=== PATIENT | female | born 1970 | race Caucasian/White ===

== ENCOUNTER 2024-07-26 12:32 | Inpatient (IN) ==
--- NOTE | 2024-07-26 13:03 | Emergency Department Note ---
Impression & Plan Acute cholecystitis, Leukocytosis, Right upper quadrant abdominal pain, Nausea & vomiting, Hyperglycemia, Cholelithiasis, Elevated serum creatinine ED Provider Note CHIEF COMPLAINT: Right upper quadrant pain, referral from [facility] HISTORY OF PRESENTING ILLNESS: The patient is a 54-year-old female with a H gallstones and type 2 diabetes who presents to the emergency department due to worsening RUQ abdominal pain for 6 days. Confirms that she was evaluated at [facility] where an ultrasound showed gallstones/inflamed gallbladder but surgery did not feel as if she required removal at that time. She was sent home for outpatient management and when she was reevaluated today was sent here. Denies fevers, chest pain, shortness of breath, diarrhea, or urinary symptoms. She does confirm that she is feeling nauseous and had episodes of vomiting previously in the week but has not had any since. Confirms being on Plavix. She had last eaten this morning at 10 AM. REVIEW OF SYSTEMS: See HPI for pertinent positives and pertinent negatives. ALLERGIES: NKDA MEDICATIONS: See below PAST MEDICAL HISTORY: Gallstones, type 2 diabetes PHYSICAL EXAM: VITALS: Vitals are noted on the nurse's note and reviewed by myself. Vital signs stable. GENERAL: 54-year-old female, lying comfortably in bed, in no acute distress, nondiaphoretic, well-developed well-nourished. SKIN: Capillary refill less than 2 seconds. HEENT: Normocephalic. PERRLA. EOMI. Nares patent. Mucous membranes moist. Neck is supple without nuchal rigidity. HEART: Regular rate and rhythm without murmurs gallops or rubs. LUNGS: Clear to auscultation bilaterally without wheezes, rales or rhonchi. No retractions or accessory muscle use. ABDOMEN: Positive bowel sounds x 4. Exquisite tenderness upon RUQ palpation. Whitfield sign positive. No other tenderness upon palpation to the abdomen. Soft, without masses. NEURO: Patient was alert and oriented. No focal neurological deficits. DIFFERENTIAL DIAGNOSIS: appendicitis, diverticulitis, bowel obstruction, inflammatory bowel disease, renal colic, PUD, biliary pathology, acute cholecystitis, cholelithiasis, pancreatitis, mesenteric ischemia, aortic pathology, infection, genitourinary, UTI, perforated viscus, among others. ED COURSE AND MEDICAL DECISION MAKING: HISTORY FROM INDEPENDENT HISTORIAN: The patient herself and her mother. MEDICATIONS GIVEN: Denies any for pain management, 1 L normal saline, Rocephin 2 g IV, Flagyl 500 mg IV MONITOR: Continuous cardiac rn: Order was placed for continuous cardiac rn. Patient was placed on the cardiac rn and continuous pulse ox. Patient was noted to be in normal sinus rhythm at an initial rate of 72 bpm per my interpretation. EKG: EKG was interpreted by myself as normal sinus rhythm. No obvious arrhythmia. No ST or T wave abnormality. No previous EKG for comparison. INTERPRETATION OF LABS: I interpreted the labs with full lab results as below in the lab section of this note. Pertinent lab results discussed in the MDM section below. INTERPRETATION OF IMAGING: Imaging studies were interpreted by myself and read by radiology as per the imaging section of this note. Ultrasound gallbladder - Cholelithiasis with positive sonographic Whitfield sign, mild gallbladder wall thickening and trace pericholecystic fluid. Favoring acute cholecystitis. No biliary ductal dilation. CONSULTATIONS: - On-call general surgery provider - I presented the patient to the general surgery team, her presentation, laboratory results, and imaging study showing acute cholecystitis. I did inform them that she has not had any fevers and her LFTs are within normal limits. No biliary ductal dilation. Was instructed to keep the patient NPO, administer fluids, and start IV antibiotics while working on admitting her to medicine. Patient's creatinine is elevated as well as her blood sugar. Requested correction of these levels before surgical procedure likely Tuesday due to the patient being on Plavix. - On-call [facility] hospitalist provider - I presented the patient to the hospitalist, her presentation, laboratory results, and imaging study showing acute cholecystitis. They were also informed of the consultation that I had with general surgery and their plans for cholecystectomy tomorrow. Discussed the patient and informed them that she has been started on fluids and IV antibiotics. They confirmed that they would come and evaluate the patient and admit her. The remainder of her care will be taken over by the hospitalist team. MDM SUMMARY: The patient is a 54-year-old female presents the emergency department due to worsening RUQ abdominal pain and nausea. Denies fevers, chest pain, shortness of breath, diarrhea, or urinary symptoms. She does confirm that she is feeling nauseous and had episodes of vomiting previously in the week but has not had any since. Confirms being on Plavix. She had last eaten this morning at 10 AM. On exam the patient is lying comfortably in bed, her vitals are stable, she is afebrile. Chest auscultation reveals RRR without murmurs. The lungs are clear to auscultation bilaterally. Positive bowel sounds appreciated in all 4 quadrants. Exquisite tenderness upon palpation to right upper quadrant. Whitfield sign positive. No other abdominal quadrant tenderness. Labs and a gallbladder ultrasound were ordered. Patient denies need for pain and symptom management. 1 L normal saline provided. Leukocytosis WBC 12.43. RBC 4.08. Hemoglobin hematocrit 12.2/36.7. No electrolyte abnormalities. BUN 20. Creatinine elevated 1.52. She does confirm history of kidney disease and elevated creatinine at baseline. Hyperglycemia glucose 236. AST 12. ALT 8. Troponin normal 6.5. Lipase 35 normal. negative. Urinalysis shows trace protein, 2+ leukocyte Estrace, and urine epithelial cells. Urinalysis was provided upon admission of the patient to medicine. Ultrasound gallbladder shows acute cholecystitis. No biliary ductal dilation. A consultation was placed with the on-call general surgery provider which can be seen in detail above. They recommended admission to medicine due to patient being on Plavix, hyperglycemic, and elevated creatinine. Patient was admitted to medicine which can be seen in detail above. I informed them that I had given her a liter of normal saline and started her on antibiotics ceftriaxone and Flagyl. They confirmed that they would evaluate the patient and admit her. I informed the patient of all of her laboratory and imaging results as well as my consultations with surgery and hospitalist. She agrees to the outlined treatment plan and all of her questions were answered. The remainder of her care was taken over by their team. The patient was admitted in stable condition. DIAGNOSIS: Acute cholecystitis, leukocytosis, right upper quadrant abdominal pain, nausea and vomiting, hyperglycemia, cholelithiasis, elevated serum creatinine The chart was completed utilizing [employer] voice recognition software. Grammatical errors, random word insertions, pronoun errors, and incomplete sentences are an occasional consequence of this system due to software limitations, ambient noise, and hardware issues. Any formal questions or concerns about the content, text, or information contained within the body of this dictation should be directly addressed to the provider for clarification. Past Med/Surg History Problem List (Updated 07/26/24 @ 20:39 by Rica Cortes PA-C) Abnormal urinalysis IKE (acute kidney injury) History of CVA (cerebrovascular accident) Acute calculous cholecystitis Elevated serum creatinine (Acute) Cholelithiasis (Acute) Hyperglycemia (Acute) Nausea & vomiting (Acute) Right upper quadrant abdominal pain (Acute) Leukocytosis (Acute) Acute cholecystitis (Acute) Medical History Morbid obesity Diabetes type 2 Stroke Hyperlipidemia HTN (hypertension) Surgical History Tubal ligation evaluation Social History Smoking Status: Never smoker Feels Safe at Home: Yes Allergies Allergies Allergy/AdvReac Type Severity Reaction Status Date / Time No Known Allergies Allergy Unverified 07/26/24 15:55 Home Meds Home Medications Medication Instructions Recorded Confirmed atorvastatin 80 mg tablet 40 mg PO QAM 07/26/24 07/26/24 citalopram 40 mg tablet 40 mg PO QAM 07/26/24 07/26/24 clopidogrel 75 mg tablet 75 mg PO QA 07/26/24 07/26/24 hydroxyzine HCl 10 mg tablet 10 mg PO DAILY PRN Anxiety 07/26/24 07/26/24 lisinopril 10 mg tablet 10 mg PO QAM 07/26/24 07/26/24 metformin 500 mg tablet 500 mg PO QAM 07/26/24 07/26/24 Results & Data (ED) Vital Signs Vital Signs - 24 hr 07/26/24 12:43 07/26/24 13:20 07/26/24 13:21 Temperature 36.6 C Temperature Source Temporal Artery Scan Pulse Rate 85 72 Pulse Rate [Apical] 72 Respiratory Rate 18 18 Respiratory Effort / Characteristics Non-Labored Spontaneous Non-Labored Spontaneous Respiratory Depth Normal Normal Respiratory Pattern Regular Blood Pressure 132/86 Blood Pressure [Right Arm] 119/73 Blood Pressure Mean 101 Blood Pressure Mean [Right Arm] 88 Pulse Oximetry 95 98 Oxygen Delivery Method Room Air Room Air Sepsis Recent Fever Within 48 Hours No Sepsis New/Unexplained Change in Mental Status N/A Sepsis Action Taken by Nursing No Action Required 07/26/24 15:00 07/26/24 17:00 07/26/24 17:18 Temperature Temperature Source Pulse Rate 65 Pulse Rate [Apical] 85 67 Respiratory Rate 20 14 Respiratory Effort / Characteristics Non-Labored Respiratory Depth Normal Normal Respiratory Pattern Blood Pressure Blood Pressure [Right Arm] 137/69 Blood Pressure Mean Blood Pressure Mean [Right Arm] 91 Pulse Oximetry 95 98 Oxygen Delivery Method Room Air Room Air Sepsis Recent Fever Within 48 Hours Sepsis New/Unexplained Change in Mental Status Sepsis Action Taken by Nursing Laboratory Data 07/26/24 13:16 07/26/24 13:16 Lab Results 07/26/24 Range/Units 13:16 WBC 12.43 H (4.8-10.8) K/ul RBC 4.08 L (4.20-5.40) M/uL Hgb 12.2 (12.0-16.0) g/dl Hct 36.7 L (37.0-47.0) % MCV 90.0 (80.0-100.0) fL MCH 29.9 (25.0-34.0) pg MCHC 33.2 (32.0-36.0) g/dL RDW Std Deviation 43.2 (36.4-46.3) fL RDW Coeff of Georges 13.0 (11.5-14.5) % Plt Count 355 (130-400) K/uL MPV 9.1 L (9.4-12.4) fL Immature Gran % (Auto) 0.6 % Neut % (Auto) 70.8 % Lymph % (Auto) 17.6 % Armstrong % (Auto) 7.9 % Eos % (Auto) 2.7 % Baso % (Auto) 0.4 % Neut # (Auto) 8.79 H (1.40-6.50) K/uL Lymph # (Auto) 2.19 (1.20-3.40) K/uL Armstrong # (Auto) 0.98 H (0.11-0.59) K/uL Eos # (Auto) 0.34 (0.00-0.50) K/uL Baso # (Auto) 0.05 (0.00-0.20) K/uL Immature Gran # (Auto) 0.08 (0.01-0.20) K/uL Sodium 138 (136-145) mmol/L Potassium 4.5 (3.5-5.1) mmol/L Chloride 103 (98-107) mmol/L Carbon Dioxide 24 (21-32) mmol/L Anion Gap 11 (3-11) BUN 20 (6-23) mg/dl Creatinine 1.52 H (0.6-1.2) mg/dl Est Cr Clr Drug Dosing 46.8 ml/min eGFR 40.25 BUN/Creatinine Ratio 13.2 (10-20) Glucose 236 H (70-99(Fasting)) mg/dl Calcium 9.2 (8.6-10.3) mg/dl Total Bilirubin 0.6 (0.2-1.0) mg/dl AST 12 L (13-39) U/L ALT 8 (7-52) U/L Alkaline Phosphatase 78 (34-104) U/L Troponin I High Sens 6.5 (0-14) pg/ml Total Protein 7.4 (6.0-8.3) gm/dl Albumin 3.7 (3.4-5.0) gm/dl Globulin 3.7 (2.5-4.0) gm/dl Albumin/Globulin Ratio 1.0 (0.9-2) Lipase 35 (11-82) U/L HCG, Qual Negative (Negative) Administered Medications Lactated Ringer's (Lr) 1,000 mls @ 100 mls/hr IV .Q10H ABDIAS Stop: 07/27/24 21:14 Last Admin: 07/26/24 20:25 Dose: 100 mls/hr Documented By: MOSES Acetaminophen (Ofirmev) 1,000 mg in 100 mls @ 400 mls/hr IV Q8H ABDIAS Stop: 07/29/24 18:59 Last Infusion: 07/26/24 21:29 Dose: Infused Documented By: Admin: 07/26/24 21:13 Dose: 400 mls/hr Documented By: MOSES Insulin Aspart (Insulin Aspart Per Unit Charge) 0 units SC ACHS ABDIAS Stop: 08/25/24 20:59 Last Admin: 07/26/24 21:27 Dose: Not Given Documented By: MNS Discontinued Medications Sodium Chloride (Nss) 1,000 mls @ 999 mls/hr IV .Q1H1M ONE Stop: 07/26/24 16:55 Last Infusion: 07/26/24 18:17 Dose: Infused Documented By: Admin: 07/26/24 16:04 Dose: 999 mls/hr Documented By: MOSES Ceftriaxone Sodium (Rocephin) 2,000 mg in 50 mls @ 100 mls/hr IV Q24H ABDIAS Stop: 07/28/24 15:59 Last Infusion: 07/26/24 18:20 Dose: Infused Documented By: Admin: 07/26/24 17:47 Dose: 100 mls/hr Documented By: MOSES Metronidazole (Flagyl) 500 mg in 100 mls @ 100 mls/hr IV NOW STA; Protocol Stop: 07/26/24 16:54 Last Infusion: 07/26/24 18:17 Dose: Infused Documented By: Admin: 07/26/24 16:04 Dose: 100 mls/hr Documented By: MOSES Imaging Data Radiologist's Impression: Gallbladder Ultrasound 07/26/24 12:56 US gallbladder CLINICAL HISTORY: Abdominal pain. COMPARISON STUDY: No previous studies for comparison. FINDINGS: A 3 cm gallstone within the gallbladder neck is noted. The gallbladder is mildly distended. Sonographic Whitfield sign was reported by the technologist. There is mild gallbladder wall thickening and trace pericholecystic fluid. There is no biliary ductal dilatation. No hepatic lesions are identified. Liver morphology is normal. Pancreatic body is normal. Head and tail are obscured. A 1.1 cm hypoechoic nodule adjacent to the pancreatic head favors a benign lymph node. There is no right hydronephrosis. IMPRESSION: 1. Cholelithiasis with positive sonographic Whitfield sign, mild gallbladder wall thickening and trace pericholecystic fluid. The findings favor acute cholecystitis. A nuclear medicine hepatobiliary scan could be obtained as indicated. 2. No biliary ductal dilatation. ACT 112: Negative or not required by law. Electronically signed by: Jeffrey Robles M.D. 07/26/2024 3:00 PM Discharge Plan Visit Data Chief Complaint: Referred by Doctor Stated Complaint: SENT FROM [facility] ED Provider: Mike Blancas ED Midlevel Provider: Evonne Galindo Discharge Problem: Acute cholecystitis, Leukocytosis, Right upper quadrant abdominal pain, Nausea & vomiting, Hyperglycemia, Cholelithiasis, Elevated serum creatinine Patient Disposition: Admitted As Inpatient Condition: Good Discharge Instructions Interventions: ED Discharge Assessment Last Done: 07/26/24 21:36 Discharge Problem: Leukocytosis Qualifiers: Leukocytosis type: unspecified Qualified Code(s): D72.829 - Elevated white blood cell count, unspecified Nausea & vomiting Qualifiers: Vomiting type: unspecified Qualified Code(s): R11.2 - Nausea with vomiting, unspecified Cholelithiasis Qualifiers: Cholelithiasis location: gallbladder Cholecystitis presence: with cholecystitis Cholecystitis acuity: acute Biliary obstruction: without biliary obstruction Q ualified Code(s): K80.00 - Calculus of gallbladder with acute cholecystitis without obstruction
[2024-07-26 13:56] LABS: Basophils # (auto) 0.05 K/uL (0.00-0.20); Basophils % (auto) 0.4 %; Eosinophils # (auto) 0.34 K/uL (0.00-0.50); Eosinophils % (auto) 2.7 %; Hematocrit (blood only) 36.7 % (37.0-47.0); Hemoglobin 12.2 g/dl (12.0-16.0); Immature Granulocytes # (auto) 0.08 K/uL (0.01-0.20); Immature Granulocytes % (auto) 0.6 %; Lymphocytes # (auto) 2.19 K/uL (1.20-3.40); Lymphocytes % (auto) 17.6 %; Mean Corpuscular Hemoglobin 29.9 pg (25.0-34.0); Mean Corpuscular Hgb Conc 33.2 g/dL (32.0-36.0); Mean Platelet Volume 9.1 fL (9.4-12.4); Monocytes # (auto) 0.98 K/uL (0.11-0.59); Monocytes % (auto) 7.9 %; Neutrophils # (auto) 8.79 K/uL (1.40-6.50); Neutrophils % (auto) 70.8 %; Platelet Count 355 K/uL (130-400); RDW Standard Deviation 43.2 fL (36.4-46.3); Red Blood Count 4.08 M/uL (4.20-5.40); White Blood Count 12.43 K/ul (4.8-10.8)
[2024-07-26 14:09] LABS: Pregnancy Test, Serum Negative (Negative)
[2024-07-26 14:13] LABS: Albumin Level 3.7 gm/dl (3.4-5.0); BUN Creatinine Ratio 13.2 (10-20); Bilirubin,Total 0.6 mg/dl (0.2-1.0); Calcium 9.2 mg/dl (8.6-10.3); Creatinine Clr Calc Pharmacy 46.8 ml/min; Globulin 3.7 gm/dl (2.5-4.0); Potassium 4.5 mmol/L (3.5-5.1); Total Protein 7.4 gm/dl (6.0-8.3)
[2024-07-26 14:18] LABS: Troponin I High Sensitivity 6.5 pg/ml (0-14)
--- NOTE | 2024-07-26 15:02 | Ultrasound Report ---
US gallbladder CLINICAL HISTORY: Abdominal pain. COMPARISON STUDY: No previous studies for comparison. FINDINGS: A 3 cm gallstone within the gallbladder neck is noted. The gallbladder is mildly distended. Sonographic Whitfield sign was reported by the technologist. There is mild gallbladder wall thickening and trace pericholecystic fluid. There is no biliary ductal dilatation. No hepatic lesions are identi fied. Liver morphology is normal. Pancreatic body is normal. Head and tail are obscured. A 1.1 cm hyp oechoic nodule adjacent to the pancreatic head favors a benign lymph node. There is no right hydronep hrosis. IMPRESSION: 1. Cholelithiasis with positive sonographic Whitfield sign, mild gallbladder wall thickening and trace p ericholecystic fluid. The findings favor acute cholecystitis. A nuclear medicine hepatobiliary scan c ould be obtained as indicated. 2. No biliary ductal dilatation. ACT 112: Negative or not required by law. Electronically signed by: Jeffrey Robles M.D. 07/26/2024 3:00 PM
[2024-07-26] MEDS: metroNIDAZOLE 500 MG/100 ML BAG IV STA (16:04)
[2024-07-26] MEDS: SODIUM CHLORIDE 0.9% 1,000 ML IV ONE (16:04)
--- NOTE | 2024-07-26 17:33 | Surgery Consultation ---
Date of Consultation July 26, 2024 Assessment & Plan (1) Acute calculous cholecystitis: (2) Right upper quadrant abdominal pain: (3) Leukocytosis: 54-year-old female with sudden onset of vomiting and right upper quadrant abdominal pain on Tuesday presented to [facility] emergency department in [place] and was subsequently discharged. She was seen in [facility] outpatient surgery clinic today by Dr. Seo and was referred to the emergency room given severe right upper quadrant pain on examination. Ultrasound here showing acute cholecystitis with large 3 cm stone in the neck of the gallbladder. No evidence of biliary obstruction. Leukocytosis of 12,000. T. bili and LFTs are unremarkable. She is very tender in the right upper quadrant on mild palpation with voluntary guarding in the right upper quadrant and positive Whitfield sign. No peritonitis. She is on Plavix for history of stroke and last took Plavix this morning. discussed with patient and family at bedside that unfortunately given her Plavix surgery will need to be delayed for at least a few days to decrease risk of bleeding intraoperatively. Given patient's pain on examination I do think she needs to be admitted to the hospital started on IV antibiotics, pain management as needed, antiemetics as needed along with blood sugar control and IV hydration. She can likely have some clear liquids. Hold Plavix. Will tentatively add her on for the operating room room on Tuesday for laparoscopic cholecystectomy with Dr. Delgado. Discussed with Dr. Delgado who agrees with above History of Present Illness Reason for Consultation: Acute calculous cholecystitis Requesting Physician: Evonne Galindo PA-C History of Present Illness Ms. Scott is a 54 yo female With history of type 2 diabetes, hypertension, hyperlipidemia, history of stroke on Plavix who was referred to the emergency room department by Dr. Seo after outpatient surgery evaluation today for cholelithiasis and right upper quadrant pain. She states that she had sudden onset of vomiting and right upper quadrant abdominal pain on Tuesday in which she went to [facility] ER and they discharged her home. She states she was not given any oral antibiotics. She states the pain has not been very severe since Tuesday but appetite has been low and not eating very well. She states she is afraid to eat due to causing any increase in her pain. She states when she is resting she is not having much pain about a 1 out of 10 but when pressed on pain is severe 8 out of 10. Denies of any fevers, chills, persistent vomiting since Tuesday, chest pain, shortness of breath, difficulty breathing, difficulty urinating or blood in the urine, blood in the stools. She has history of tubal ligation. She is on Plavix for history of stroke and took Plavix this morning. Allergies Allergy/AdvReac Type Severity Reaction Status Date / Time No Known Allergies Allergy Unverified 07/26/24 15:55 Home Medications Medication Instructions Recorded Confirmed Type atorvastatin 80 mg tablet 40 mg PO QAM 07/26/24 07/26/24 History citalopram 40 mg tablet 40 mg PO QAM 07/26/24 07/26/24 History clopidogrel 75 mg tablet 75 mg PO QAM 07/26/24 07/26/24 History hydroxyzine HCl 10 mg tablet 10 mg PO DAILY PRN Anxiety 07/26/24 07/26/24 History lisinopril 10 mg tablet 10 mg PO QAM 07/26/24 07/26/24 History metformin 500 mg tablet 500 mg PO QAM 07/26/24 07/26/24 History amoxicillin 875 mg-potassium 1 tab PO BID #7 tabs 07/31/24 Rx clavulanate 125 mg tablet docusate sodium 100 mg capsule 100 mg PO DAILY 2 weeks #14 caps 07/31/24 Rx (Colace) oxycodone 5 mg tablet 5 mg PO Q6H PRN pain #12 tabs 07/31/24 Rx Patient History Medical History Morbid obesity Diabetes type 2 Stroke Hyperlipidemia HTN (hypertension) Surgical History Tubal ligation evaluation Social History Smoking Status: Never smoker Hx Alcohol Use: No Hx Substance Use: No Preferred Language: Vietnamese Communication Ability: Effective Hand Ii Thermal Cutter Required: No Beliefs That Will Affect Care: None Current Living Situation: Spouse Feels Safe at Home: Yes Assistive Devices: None Review of Systems Review of Systems: All systems reviewed & are unremarkable except as noted in HPI & below Physical Exam Constitutional: WD/WN, vitals as above + morbidly obese, cooperative and comfortable; no acute distress and not ill appearing Respiratory: normal respiratory effort, lungs clear to auscultation Cardiovascular: RRR, no murmur, no edema Gastrointestinal (Abdomen): Inspection/Auscultation: abdomen normal to inspection; abdomen not distended Percussion/Palpation: + abdomen tender (RUQ), + guarding (RUQ, + Whitfield's sign) and abdomen soft; abdomen not rigid and abdomen not firm Skin: no rashes, warm and dry Psychiatric: A+Ox3, euthymic affect Results & Data Vital Signs (Past 12 Hours) Vital Signs Temp Pulse Pulse Resp BP BP Pulse Ox 07/26/24 17:18 65 07/26/24 15:00 85 20 95 07/26/24 13:21 72 07/26/24 13:20 72 18 119/73 98 07/26/24 12:43 36.6 C 85 18 132/86 95 O2 Del Method 07/26/24 17:18 07/26/24 15:00 Room Air 07/26/24 13:21 07/26/24 13:20 Room Air 07/26/24 12:43 Room Air Laboratory Results 07/26/24 Range/Units 13:16 WBC 12.43 H (4.8-10.8) K/ul RBC 4.08 L (4.20-5.40) M/uL Hgb 12.2 (12.0-16.0) g/dl Hct 36.7 L (37.0-47.0) % MCV 90.0 (80.0-100.0) fL MCH 29.9 (25.0-34.0) pg MCHC 33.2 (32.0-36.0) g/dL RDW Std Deviation 43.2 (36.4-46.3) fL RDW Coeff of Georges 13.0 (11.5-14.5) % Plt Count 355 (130-400) K/uL MPV 9.1 L (9.4-12.4) fL Immature Gran % (Auto) 0.6 % Neut % (Auto) 70.8 % Lymph % (Auto) 17.6 % Meagher % (Auto) 7.9 % Eos % (Auto) 2.7 % Baso % (Auto) 0.4 % Neut # (Auto) 8.79 H (1.40-6.50) K/uL Lymph # (Auto) 2.19 (1.20-3.40) K/uL Meagher # (Auto) 0.98 H (0.11-0.59) K/uL Eos # (Auto) 0.34 (0.00-0.50) K/uL Baso # (Auto) 0.05 (0.00-0.20) K/uL Immature Gran # (Auto) 0.08 (0.01-0.20) K/uL Sodium 138 (136-145) mmol/L Potassium 4.5 (3.5-5.1) mmol/L Chloride 103 (98-107) mmol/L Carbon Dioxide 24 (21-32) mmol/L Anion Gap 11 (3-11) BUN 20 (6-23) mg/dl Creatinine 1.52 H (0.6-1.2) mg/dl Est Cr Clr Drug Dosing 46.8 ml/min eGFR 40.25 BUN/Creatinine Ratio 13.2 (10-20) Glucose 236 H (70-99(Fasting)) mg/dl Calcium 9.2 (8.6-10.3) mg/dl Total Bilirubin 0.6 (0.2-1.0) mg/dl AST 12 L (13-39) U/L ALT 8 (7-52) U/L Alkaline Phosphatase 78 (34-104) U/L Troponin I High Sens 6.5 (0-14) pg/ml Total Protein 7.4 (6.0-8.3) gm/dl Albumin 3.7 (3.4-5.0) gm/dl Globulin 3.7 (2.5-4.0) gm/dl Albumin/Globulin Ratio 1.0 (0.9-2) Lipase 35 (11-82) U/L HCG, Qual Negative (Negative) Diagnostic Findings US gallbladder CLINICAL HISTORY: Abdominal pain. COMPARISON STUDY: No previous studies for comparison. FINDINGS: A 3 cm gallstone within the gallbladder neck is noted. The gallbladder is mildly distended. Sonographic Whitfield sign was reported by the technologist. There is mild gallbladder wall thickening and trace pericholecystic fluid. There is no biliary ductal dilatation. No hepatic lesions are identified. Liver morphology is normal. Pancreatic body is normal. Head and tail are obscured. A 1.1 cm hypoechoic nodule adjacent to the pancreatic head favors a benign lymph node. There is no right hydronephrosis. IMPRESSION: 1. Cholelithiasis with positive sonographic Whitfield sign, mild gallbladder wall thickening and trace pericholecystic fluid. The findings favor acute cholecystitis. A nuclear medicine hepatobiliary scan could be obtained as indicated. 2. No biliary ductal dilatation. I personally reviewed ultrasound images and concur with above findings (3) Leukocytosis Leukocytosis type: unspecified Qualified Code(s): D72.829 - Elevated white blood cell count, unspecified
[2024-07-26] MEDS: cefTRIAXone SODIUM 2,000 MG/50 ML BAG IV SCH (17:47)
--- NOTE | 2024-07-26 18:02 | History & Physical Report ---
Date of Service July 26, 2024 Assessment & Plan (1) Acute calculous cholecystitis: Plan: Sweta Scott is a 54y/o F with PMHx significant for obesity, DM type II, HLD, HTN, history of CVA on Plavix and anxiety who was referred to the ED by Dr. Seo, [facility], after being seen in his office earlier today due to concern for acute cholecystitis given persistent RUQ abdominal pain since this past Tuesday. Gallbladder US and CTAP consistent with acute cholecystitis with evidence of a gallbladder stone within the gallbladder neck. Reviewed general surgery consultation. Tentative plan for laparoscopic cholecystectomy on Tuesday, 07/30; Plavix on hold. Continue IV ABX including Rocephin plus Flagyl, IVF resuscitation and PRN pain control as well as antiemetics. Can have clear liquid diet as tolerated. (2) Diabetes type 2: Plan: Hold home metformin, SSI regimen while inpatient. Hgb A1c was 7.1% about 8 days ago. BSG checks ACHS. (3) IKE (acute kidney injury): Plan: Suspect prerenal 2/2 poor oral intake. Continue IVF as per above; Avoid nephrotoxic agents when able. Monitor renal function closely with daily labs and renally dose medications when able. (4) Abnormal urinalysis: Plan: UA with 2+ LE and 3+ bacteria. Denies any urinary complaints; ? possible contamination. Continue IV ABX as per above with urine culture pending to tailor regimen if needed. (5) History of CVA (cerebrovascular accident): Plan: Holding Plavix as per above. Continue atorvastatin. Other Chronic Medical Conditions: Anxiety - Continue citalopram. HTN - BP remains stable. Continue lisinopril with hold parameters. DVT Prophylaxis: SQ heparin for now - can hold prior to surgery. Code Status: FULL CODE PCP: Rema Juarez MD Disposition: Admit to med/surg for further inpatient evaluation and management. Patient seen in collaboration with Dr. Hernandez. Please see addendum. I spent a total of 45 minutes coordinating, documenting, and providing care for this patient excluding time spent in the performance of separately billed services or time spent by another provider/QHP. This included personally reviewing all current laboratories and imaging studies, medical reconciliation, outpatient chart review and discussion with specialists. This chart was completed in part utilizing Speech Voice Recognition Software. Grammatical errors, random word insertions, pronoun errors, and incomplete sentences are an occasional consequence of this system due to software limitations, ambient noise, and hardware issues. Any formal questions or concerns about the content, text, or information contained within the body of this dictation should be directly addressed to the provider for clarification. History of Present Illness Chief Complaint: RUQ Pain and N/V Primary Care Provider: Rema Juarez MD Sweta Scott is a 54y/o F with PMHx significant for obesity, DM type II, HLD, HTN, history of CVA on Plavix and anxiety who was referred to the ED by Dr. Seo, [facility], after being seen in his office earlier today due to concern for acute cholecystitis given persistent RUQ abdominal pain. History obtained from the patient, family at bedside, discussion with ED provider and associated chart review. Ongoing RUQ abdominal pain since this past Tuesday. Had incessant N/V on Tuesday therefore she went to [facility] ED for evaluation that evening and was subsequently discharged home; patient recalls being told she had a negative workup at the time. According to her outpatient visit with Dr. Seo today, it appears her CTAP at [facility] ED did demonstrate pericholecystic fluid and a stone in the neck of the gallbladder. She was not discharged home with any ABX. Notes her N/V has resolved since Tuesday however the pain in her RUQ abdominal region has persisted. Also endorses some discomfort and pain in her L midabdominal region which started today. Reports passing gas but no BM in the past 2 days. No diarrhea. No recorded fevers. Ongoing poor appetite since Tuesday but has been able to keep food down. Endorses good hydration status. Feels RUQ abdominal pain is about a 1 or 2 out of 10 at rest but becomes severe with a rating of about 8-9 out of 10 when this area is palpated. Denies any chest pain or SOB. No urinary complaints either such as dysuria or hematuria. Past surgical history notable for bilateral tubal ligation. She is on Plavix given history of CVA; took all of her medications this morning including the Plavix. Endorses no physical deficits from her prior CVA but does report having some intermittent forgetfulness at times. Allergies Allergy/AdvReac Type Severity Reaction Status Date / Time No Known Allergies Allergy Unverified 07/26/24 15:55 Home Medications Medication Instructions Recorded Confirmed Type atorvastatin 80 mg tablet 40 mg PO QAM 07/26/24 07/26/24 History citalopram 40 mg tablet 40 mg PO QAM 07/26/24 07/26/24 History clopidogrel 75 mg tablet 75 mg PO QAM 07/26/24 07/26/24 History hydroxyzine HCl 10 mg tablet 10 mg PO DAILY PRN Anxiety 07/26/24 07/26/24 History lisinopril 10 mg tablet 10 mg PO QAM 07/26/24 07/26/24 History metformin 500 mg tablet 500 mg PO QAM 07/26/24 07/26/24 History Past Med/Surg History Problem List (Updated 07/26/24 @ 20:39 by Rica Cortes PA-C) Abnormal urinalysis IKE (acute kidney injury) History of CVA (cerebrovascular accident) Acute calculous cholecystitis Elevated serum creatinine (Acute) Cholelithiasis (Acute) Hyperglycemia (Acute) Nausea & vomiting (Acute) Right upper quadrant abdominal pain (Acute) Leukocytosis (Acute) Acute cholecystitis (Acute) Medical History Morbid obesity Diabetes type 2 Stroke Hyperlipidemia HTN (hypertension) Surgical History Tubal ligation evaluation Social History Smoking Status: Never smoker Feels Safe at Home: Yes Review of Systems Review of Systems: At least ten systems reviewed and negative, except as noted in the HPI. Physical Exam Physical Exam: General: Obese, middle-aged F. Sitting up in bed. Pleasant. A+Ox3. Appears comfortable at rest. Family at bedside. HEENT: Normocephalic, atraumatic. Conjunctivae normal. External ear and nose normal, oropharynx normal. Respiratory: Normal respiratory effort, lungs clear to auscultation bilaterally, No accessory muscle use. Cardiovascular: Regular rate and rhythm, normal peripheral pulses. No BLE edema. Abdomen/GI: Normal bowel sounds. Not distended. Extremely TTP in RUQ with active guarding and + Whitfield's sign. Extremities/MSK: No cyanosis or clubbing, extremities motor strength intact, moves all extremities. Neurologic: No overt focal deficits, CN's II-XI not formally tested but appear grossly intact bilaterally. Results & Data Results & Data Vital Signs (Past 12 Hours) Vital Signs Temp Pulse Pulse Resp BP BP Pulse Ox 07/26/24 17:18 65 07/26/24 17:00 67 14 137/69 98 07/26/24 15:00 85 20 95 07/26/24 13:21 72 07/26/24 13:20 72 18 119/73 98 07/26/24 12:43 36.6 C 85 18 132/86 95 O2 Del Method 07/26/24 17:18 07/26/24 17:00 Room Air 07/26/24 15:00 Room Air 07/26/24 13:21 07/26/24 13:20 Room Air 07/26/24 12:43 Room Air Laboratory Results Short CBC 07/26/24 Range/Units 13:16 WBC 12.43 H (4.8-10.8) K/ul Hgb 12.2 (12.0-16.0) g/dl Hct 36.7 L (37.0-47.0) % Plt Count 355 (130-400) K/uL BMP 07/26/24 13:16 Sodium 138 Potassium 4.5 Chloride 103 Carbon Dioxide 24 BUN 20 Creatinine 1.52 H Glucose 236 H Calcium 9.2 Liver Function 07/26/24 Range/Units 13:16 Total Bilirubin 0.6 (0.2-1.0) mg/dl AST 12 L (13-39) U/L ALT 8 (7-52) U/L Alkaline Phosphatase 78 (34-104) U/L Albumin 3.7 (3.4-5.0) gm/dl Diagnostic Findings Gallbladder Ultrasound 07/26/24 12:56 US gallbladder CLINICAL HISTORY: Abdominal pain. COMPARISON STUDY: No previous studies for comparison. FINDINGS: A 3 cm gallstone within the gallbladder neck is noted. The gallbladder is mildly distended. Sonographic Whitfield sign was reported by the technologist. There is mild gallbladder wall thickening and trace pericholecystic fluid. There is no biliary ductal dilatation. No hepatic lesions are identified. Liver morphology is normal. Pancreatic body is normal. Head and tail are obscured. A 1.1 cm hypoechoic nodule adjacent to the pancreatic head favors a benign lymph node. There is no right hydronephrosis. IMPRESSION: 1. Cholelithiasis with positive sonographic Whitfield sign, mild gallbladder wall thickening and trace pericholecystic fluid. The findings favor acute cholecystitis. A nuclear medicine hepatobiliary scan could be obtained as indicated. 2. No biliary ductal dilatation. ACT 112: Negative or not required by law. Electronically signed by: Jeffrey Robles M.D. 07/26/2024 3:00 PM Medications Administered Ceftriaxone Sodium (Rocephin) 2,000 mg in 50 mls @ 100 mls/hr IV Q24H ABDIAS Stop: 07/28/24 15:59 Last Admin: 07/26/24 17:47 Dose: 100 mls/hr Documented By: MOSES Discontinued Medications Sodium Chloride (Nss) 1,000 mls @ 999 mls/hr IV .Q1H1M ONE Stop: 07/26/24 16:55 Last Admin: 07/26/24 16:04 Dose: 999 mls/hr Documented By: MOSES Metronidazole (Flagyl) 500 mg in 100 mls @ 100 mls/hr IV NOW STA; Protocol Stop: 07/26/24 16:54 Last Admin: 07/26/24 16:04 Dose: 100 mls/hr Documented By: MOSES Code Status & VTE Plan Code Status FULL CODE (2) Diabetes type 2 Diabetes mellitus snf insulin use: without supervisor slitting and shipping use Diabetes mellitus complication status: without complication Qualified Code(s): E11.9 - Type 2 diabetes mellitus without complications
[2024-07-26] MEDS ORDERED: GLUCAGON FOR INJ 1 MG VIAL SQ PRN (18:15)
[2024-07-26] MEDS ORDERED: GLUCOSE 40% GEL 15 GM TUBE PO PRN (18:15)
[2024-07-26] MEDS ORDERED: GLUCOSE 10 TAB/TUBE PO PRN (18:15)
[2024-07-26] MEDS ORDERED: PHARMACY GLYCEMIC MGMT CONSULT PRN (18:15)
[2024-07-26] MEDS ORDERED: DEXTROSE 50% 50 ML SYRINGE IV PRN (18:15)
[2024-07-26] MEDS ORDERED: CARBOHYDRATES FOR HYPOGLYCEMIA PO PRN (18:15)
[2024-07-26 19:09] LABS: Appearance Urine Clear (Clear); Bacteria Urine Automated 3+ (None Seen); Bilirubin Urine Negative (Negative); Blood Urine Negative (Negative); Cast Urine Automated 0-2 /lpf (0-2); Color Urine Yellow; Glucose Urine UA Negative (Negative); Ketones Urine Negative (Negative); Leukocyte Esterase Urine 2+ (Negative); Nitrite Urine Negative (Negative); Protein Urine Trace (Negative); RBC Urine Automated 0-2 /hpf (0-2); Specific Gravity Urine 1.017 (1.000-1.030); Urobilinogen Urine Negative (Negative); WBC Urine Automated 0-5 /hpf (0-5)
--- NOTE | 2024-07-26 19:34 | CT Scan Report ---
EXAM: CT Abdomen and Pelvis Without Intravenous Contrast INDICATION: Left lower quadrant pain. Query hernia. TECHNIQUE: Axial computed tomography images of the abdomen and pelvis without intravenous contrast. Sagittal and coronal reformatted images were created and reviewed. This CT exam was performed using one or more of the following dose reduction techniques: automated exposure control, adjustment of the mA and/or kV according to patient size, and/or use of iterative reconstruction technique. COMPARISON: No relevant prior studies available. FINDINGS: Limitations: None. Lung bases: No abnormality noted. Pleural space: No visualized pleural effusion or pneumothorax. Heart: No abnormality noted. Mediastinum: No abnormality noted. ABDOMEN: Liver: Lack of intravenous contrast limits detection of some masses. No abnormality noted. Gallbladder and bile ducts: The gallbladder is distended and appears mildly inflamed. There is a 1.9 cm lamellated stone in the neck. No ductal dilatation or calcification. Pancreas: No pancreatic mass, calcification, inflammation or ductal dilation noted. Spleen: No significant abnormality noted. Adrenals: No significant abnormality noted. Kidneys and ureters: Mild bilateral renal cortical scarring noted. No stones or hydronephrosis. Stomach and bowel: Typical amounts of formed stool noted in the colon. No obstruction or inflammation. PELVIS: Appendix: No findings to suggest acute appendicitis. Bladder: Appears normal for the degree of filling. No stones or inflammation. No large mass. Masses may not be detected in the absence of opacification. Reproductive: No abnormalities noted. ABDOMEN and PELVIS: Intraperitoneal space: No free air. No significant fluid collection. Bones/joints: No acute changes. Soft tissues: No significant abnormality noted. Vasculature: No abdominal aortic aneurysm. Lymph nodes: No pathologically enlarged lymph nodes. IMPRESSION: 1.9 cm stone appears to be lodged in the neck of the distended and inflamed gallbladder consistentwith acute cholecystitis. Confirmation with sonography or HIDA scan recommended. ACT 112: N/A Electronically signed by Teena Tripp 07-26-2024 7:34 PM
[2024-07-26] MEDS: LACTATED RINGER'S 1,000 ML IV SCH (20:25)
--- NOTE | 2024-07-26 20:27 | Electrocardiogram Report ---
Test Reason : Blood Pressure : */* mmHG Vent. Rate : 72 BPM Atrial Rate : 72 BPM P-R Int : 196 ms QRS Dur : 70 ms QT Int : 398 ms P-R-T Axes : 49 52 15 degrees QTcB Int : 435 ms Normal sinus rhythm Septal infarct , age undetermined Nonspecific T wave abnormality Abnormal ECG No previous ECGs available Confirmed by Travis Wilde ([id number]) on 07/26/2024 8:26:46 PM Referred By: Confirmed By: Travis Wilde
[2024-07-26] MEDS: ACETAMINOPHEN 1,000 MG/100 ML VIAL IV SCH (21:13)
[2024-07-26] MEDS: INSULIN ASPART PER UNIT CHARGE SC SCH (21:27)
[2024-07-26] MEDS ORDERED: MAGNESIUM HYDROXIDE SUSP 30 ML UDC PO PRN (22:35)
[2024-07-26] MEDS ORDERED: MoRPHine SULFATE 2 MG/ML CARP IV PRN (22:35)
[2024-07-26] MEDS ORDERED: HYDROmorphone INJ 1 MG/ML SYRINGE IV PRN (22:35)
[2024-07-26] MEDS ORDERED: ONDANSETRON INJ 2 MG/ML 2 ML VIAL IV PRN (22:35)
[2024-07-26] MEDS ORDERED: POLYETHYLENE (MIRALAX) 17 GM PACK PO PRN (22:35)
[2024-07-27] MEDS: metroNIDAZOLE 500 MG/100 ML BAG IV SCH (00:30)
[2024-07-27] MEDS: HEPARIN SOD 5,000 UNIT/0.5 ML VIAL SQ SCH (00:40)
--- OUTSIDE RECORDS SUMMARY | 2024-07-27 03:36 | External Medical Summary ---
Author Name Unknown Address Unknown Organization [id number]:[facility] [place] [address] [place] [address] Laboratory Report Ordering Provider Test Date Status LORRAINE HUGHES 07/25/2024 11:39:00 Final Observation Date Value Abnormality Reference (Units ) Status BUN 07/25/2024 11:39:00 20 6-20 (mg/dL) Final Creatinine 07/25/2024 11:39:00 1.5 Above high normal 0.5-1.0 (mg/dL) Final Glomerular filtration rate/1.73 sq M.predicted [Volume Rate/Area] in Serum, Plasma or Blood by Creatinine-based formula (CKD-EPI) 07/25/2024 11:39:00 40 Below low normal >=60 (mL/min) Final eGFR is calculated based on the CKD-EPI 2020 equation. Sodium 07/25/2024 11:39:00 140 135-146 (m mol/L) Final Potassium 07/25/2024 11:39:00 4.2 3.5-5.1 (m mol/L) Final Cl 07/25/2024 11:39:00 103 98-107 (mm ol/L) Final CO2 07/25/2024 11:39:00 24 22-32 (mmo l/L) Final Anion gap 07/25/2024 11:39:00 13 7-15 (mmol /L) Final Glucose 07/25/2024 11:39:00 158 Above high normal 70 -120 (mg/dL) Final Calcium 07/25/2024 11:39:00 8.9 8.4-10.2 ( mg/dL) Final Performing Location [facility] [place] [address] [place] [address]
--- OUTSIDE RECORDS SUMMARY | 2024-07-27 03:36 | External Medical Summary | Summary of Care ---
Author Name Unknown Organization [facility] Address [address] [place] [address] Phone [phone] Care Team Providers Care Coil Spring Assembler Name Role Phone Rema Mendiola MD Primary Care Pr ovider Reason for Visit * Reason Comments Outpatient Testing Encounter Details Date Type Department Care Team ([facility] st Contact Info) Description 07/25/2024 11:30 AM EDT Laboratory Laboratory [address] [place] [phone] [facility] [address] [place] [address] Elevated serum creatinine; [email or web address] Other*[id number] Allergies No known active allergiesdocumented as of this encounter (statuses as of 07/25/2024) Medications Atorvastatin Calcium 80 MG Oral Tablet (Lipitor) Take 0.5 Tablets by mouth in the morning. 5 Active Citalopram Hydrobromide 40 MG Oral Tablet (CeleXA) Take 1 Tablet by mouth in the morning. Active Clopidogrel Bisulfate 75 MG Oral Tablet (pLAVix) Take 1 Tablet by mouth in the morning. Active Fluticasone Propionate 50 MCG/ACT Nasal Suspension (Flonase Allergy Relief) FLONASE ALLERGY RELIEF 50 MCG/ACT SUSP 3 Active hydrOXYzine HCl 10 MG Oral Tablet (Atarax) take 1 tablet by mouth once daily as needed for anxiety Active metFORMIN HCl 1000 MG Oral Tablet (Glucophage) 1 Tablet 2 times a day with morning and evening meals. 3 Active Lisinopril 10 MG Oral Tablet (Prinivil) Take 1 Tablet by mouth in the morning. 90 Tablet 3 5 Active documented as of this encounter (statuses as of 07/25/2024) Active Problems Problem Noted Date Diagnosed Date BMI 40.0-44.9, adult 07/18/2024 Type 2 diabetes mellitus wit h diabetic mononeuropathy, without long-term current use of insulin 07/18/2024 Hyperlipidemia with target LDL less than 100 05/2024 B12 deficiency 07/18/2024 HTN, goal below 130/80 07/18/2024 documented as of this encounter (statuses as of 07/25/2024) Immunizations Name Administration Dates Next Due TDAP, Age 7 and older, IM (Adacel) 07/18/2024 documented as of this encounter Social History Tobacco Use Types Packs/Day Years Used Date Smoking Tobacco: Never Smokeless Tobacco: Never Alcohol Use Standard Drinks/Week Comments Not Currently 0 (1 standard drink = 0.6 oz pur e alcohol) PHQ-2 Answer Date Recorded PHQ Adult Total Score 0 07/18/2024 Comments No Sex and Gender Information Value Date Recorded Sex Assigned at Not on file Legal Sex Female 5:55 AM EST Gender Identity Not on file Sexual Orientation Not on file documented as of this encounter Plan of Treatment Upcoming Encounters Date Type Department Care Team (Late st Contact Info) Description 07/26/2024 11:30 AM EDT Office Visit General Surgery, [facility] [address] [place] [phone] Gael Seo MD [address] [place] [address] 08/16/2024 2:10 PM EDT Telemedicine Pharmacy, [address] [place] [phone] [place] [address] 10/17/2024 1:00 PM EDT Office Visit Family Medicine [address] [place] [phone] Rema Mendiola MD [address] [place] [address] [place] [phone] Pending Results Name Type Priority Associated Diagnoses Date /Time BASIC METABOLIC PANEL Lab Routine Elevated serum creatinine 07/25/2024 11:39 AM EDT MYCODE INITIAL ADULT Lab Routine [employer] Other*[id number] 07/25/2024 11:39 AM EDT MYCODE INITIAL ADULT-PINK Lab Routine [employer] Other*[id number] 07/25/2024 11:39 AM EDT MYCODE SST1 Lab Routine [employer] Other*[id number] 07/25/2024 11:39 AM EDT MYCODE SST2 Lab Routine [employer] Other*[id number] 07/25/2024 11:39 AM EDT Health Maintenance Due Date Last Done Comments Diabetic Foot Exam 1987 Hepatitis B Vaccine (1 of 3 - 19+ 3-dose series) 1988 Pap Smear 1990 Cervical Cancer Screening 1999 HPV/Co-Test 1999 Colonoscopy 2014 Fecal Occult Blood Test 2014 Sigmoidoscopy 2014 Zoster Vaccines (1 of 2) 2019 Diabetic Eye Exam 08/06/2022 08/06/2021 COVID-19 Vaccine ( season) 2023 Cologuard 10/21/2024 10/21/2021, 08/18/2020 Colorectal Cancer Screening 10/21/2024 Influenza Vaccine (FLU shot) (Season Ended) 2024 HbA1c 01/17/2025 07/18/2024 Mammogram 03/27/2025 03/27/2024, 1208/2022, 03/22/2023, Additional history exists Albumin/Creatinine Ratio 07/18/2025 07/18/2024 B-12 07/18/2025 07/18/2024 Depression Screening 07/18/2025 07/18/2024 GFR 07/18/2025 07/18/2024, 01/17, 11/24/2020, Additional history exists Lipid Panel 07/18/2029 07/18/2024 DTap/Tdap Vaccines (2 - Td or Tdap) 07/18/2034 07/18/2024 Pneumococcal Vaccine: 50+ Years Completed 11/17/2022 HPV (Gardasil) Vaccine Aged Out No lo nger eligible based on patient's age to complete this topic MENINGOCOCCAL (MENACTRA/MENVEO) Aged Out No longer eligible based on patient's age to complete this topic Meningitis B Vaccine (Bexsero/Trumemba) Aged Out No longer eligible based on patient's age to complete this topic documented as of this encounter Medical Devices Not on filedocumented as of this encounter Visit Diagnoses Diagnosis Elevated serum creatinine Other nonspecific findings on examination of blood [employer] Other*[id number] documented in this encounter Care Teams Coil Spring Assembler Relationship Specialty Start Date End Date Rema Mendiola MD [address] [place] [address] [place] [phone] PCP - General Family Medicine 07/18/24 documented as of this encounter
--- OUTSIDE RECORDS SUMMARY | 2024-07-27 03:36 | External Medical Summary ---
Author Name Unknown Address Unknown Organization K01:[facility] [place] - [address] [place] [address] Laboratory Report Ordering Provider Test Date Status SUSANNE FAUST 07/25/2024 11:39:00 Final Observation Date Value Abnormality Reference (Units ) Status MYCODE SPECIMEN-SST 07/25/2024 11:39:00 Freezing of extracted DNA, whole blood and/or serum. Final Performing Location [facility] [place] [facility] [address] [facility] [address]
--- OUTSIDE RECORDS SUMMARY | 2024-07-27 03:36 | External Medical Summary ---
Author Name Unknown Address Unknown Organization K01:[facility] [place] - [address] [facility] [address] Laboratory Report Ordering Provider Test Date Status SUSANNE FAUST 07/25/2024 11:39:00 Final Observation Date Value Abnormality Reference (Units ) Status [employer] SPECIMEN-LAV 07/25/2024 11:39:00 Freezing of extracted DNA, whole blood and/or serum. Final Performing Location [facility]ORY [facility] [place] - [address] [facility] [address]
--- OUTSIDE RECORDS SUMMARY | 2024-07-27 03:36 | External Medical Summary | Summary of Care ---
Author Name Unknown Organization [facility] Address [address] [place] [address] Phone [phone] Care Team Providers Care Inside Sales Supervisor Name Role Phone Rema Mendiola MD Primary Care Pr ovider Reason for Visit * Reason Onset Date Comments MyCode Consent 07/25/2024 Encounter Details Date Type Department Care Team ([facility] st Contact Info) Description 07/25/2024 Orders Only Outcomes Research Department [address] [place], [place] [phone] Maru Robles CHRA [employer] Other*[id number]* Allergies No known active allergiesdocumented as of [...] mouth in the morning. 90 Tablet 3 Active documented as of this encounter (statuses [...] on file documented as of this encounter Progress Notes * Maru Robles CHRA - 07/25/2024 11:36 AM EDT [employer] Consent Documentation Sweta Scott provided consent/authorization to participate in the [employer] Project. documented in this encounter Plan of Treatment Upcoming Encounters Date Type Department Care Team (Late st Contact Info) Description 07/26/2024 11:30 AM EDT Office Visit General Surgery, [facility] [address] [place] [phone] Gael Seo MD [address] [place] [address] 08/16/2024 2:10 PM EDT Telemedicine Pharmacy, [address] [place] [address] [place] [address] 10/17/2024 1:00 PM EDT Office Visit Family Medicine [address] [place] [phone] Rema Mendiola MD [address] [place] [address] [place] [phone] Pending Results Name Type Priority Associated Diagnoses Date /Time MYCODE INITIAL ADULT Lab Routine [employer] Other*[id number] 07/25/2024 11:39 AM EDT Scheduled Orders Name Type Priority Associated Diagnoses Orde r Schedule MYCODE INITIAL ADULT Lab Routine [employer] Other*[id number] Expected: 07/25/2024 (Approximate), Expires: 08/14/2025 Health Maintenance Due Date Last Done Comments [...] 2024 HbA1c 01/17/2025 07/18/2024 Mammogram 03/27/2025 03/27/2024, 08/2022, 03/22/2023, Additional history exists Albumin/Creatinine Ratio 07/18/2025 [...] as of this encounter Visit Diagnoses Diagnosis [employer] Other*[id number] Primary documented in this encounter Care Teams Inside Sales Supervisor Relationship Specialty Start Date End Date Rema Mendiola MD [address] [place] [address] [place] [phone] PCP - General Family Medicine 07/18/24 documented as of this encounter
--- OUTSIDE RECORDS SUMMARY | 2024-07-27 03:36 | External Medical Summary | Summary of Care ---
Author Name Unknown Organization [facility] Address [address] [place] [address] Phone [phone] Care Team Providers Care Gun Perforator Name Role Phone Rema Mendiola MD Primary Care Pr ovider Reason for Visit * Reason Onset Date Comments Encounter Created in Error 07/25/2024 Encounter Details Date Type Department Care Team ([facility] st Contact Info) Description 07/25/2024 Orders Only Outcomes Research Department [address], [place] [id number] Maru Robles CHRA Encounter created in error Allergies No known active allergiesdocumented as of [...] Robles CHRA - 07/25/2024 11:36 AM EDT This encounter was created in error. 07/25/2024, 11:37 AM, NABEEL Trinidad documented in this encounter Plan of Treatment Upcoming Encounters Date Type Department Care Team (Late st Contact Info) Description 07/26/2024 11:30 AM EDT Office Visit General Surgery, [facility] [address] [phone] Gael Seo MD [address] [address] 08/16/2024 2:10 PM EDT Telemedicine Pharmacy, [address] [place] [phone] [place] [address] 10/17/2024 1:00 PM EDT Office Visit Family Medicine [address] [place] [phone] Rema Mendiola MD [address] [place] [address] [place] [phone] Health Maintenance Due Date Last Done Comments [...] as of this encounter Visit Diagnoses Diagnosis Encounter Created In Error- Primary documented in this encounter Care Teams Gun Perforator Relationship Specialty Start Date End Date Rema Mendiola MD [address] [place] [address] [place] [phone] PCP - General Family Medicine 07/18/24 documented as of this encounter
--- OUTSIDE RECORDS SUMMARY | 2024-07-27 03:36 | External Medical Summary | Summary of Care ---
Author Name Unknown Organization [facility] Address [address] [place] [address] Phone [phone] Care Team Providers Care Engineer Soils Name Role Phone Rema Mendiola MD Primary Care Pr ovider Reason for Visit * Reason Comments NEW PATIENT Choledocholithiasis. * Evaluate & Treat - Unlimited Visits (Within 30 days (routine)) - Pending Review Specialty Diagnoses / Procedures Referred By Nirav valentine Referred To Contact General Surgery Diagnoses Choledocholithiasis Rema Mendiola MD [address] [place] [address] [place] [phone] Phone: tel: fax: Referral ID Status Reason Start Date Expiration Date Visits Requested Visits Authorized [id number] Pending Review Specialty Services Required 07/23/[phone] Encounter Details Date Type Department Care Team (Late st Contact Info) Description 07/26/2024 11:30 AM EDT Office Visit General Surgery, [facility] [address] [place] [phone] Gael Seo MD [address] [place] [address] Acute cholecystitis* Allergies No known active allergiesdocumented as of this encounter (statuses as of 07/26/2024) Medications Atorvastatin Calcium 80 MG Oral Tablet (Lipitor) Take 0.5 Tablets by mouth in the morning. 01/01/202 5 Active Citalopram Hydrobromide 40 MG Oral [...] as of this encounter (statuses as of 07/26/2024) Active Problems Problem Noted Date Diagnosed Date BMI 40.0-44.9, adult 07/18/2024 Type 2 diabetes mellitus wit h diabetic mononeuropathy, without long-term current use of insulin 07/18/2024 Hyperlipidemia with target LDL less than 100 05/2024 B12 deficiency 07/18/2024 HTN, goal below 130/80 07/18/2024 documented as of this encounter (statuses as of 07/26/2024) Immunizations Name Administration Dates Next Due TDAP, [...] on file documented as of this encounter Last Filed Vital Signs Vital Sign Reading Time Taken Comments Blood Pressure 135/80 07/26/2024 11:21 AM EDT Pulse 85 07/26/2024 11:21 AM EDT Temperature - - Respiratory Rate - - Oxygen Saturation - - Inhaled Oxygen Concentration - - Weight 102.1 kg (225 lb) 07/26/2024 11:21 AM EDT Height - - Body Mass Index 41.15 07/23/2024 3:15 PM EDT documented in this encounter Progress Notes * Gael Seo MD - 07/26/2024 1:54 PM EDT SUBJECTIVE: Sweta Scott is a 54 year old female. Chief Complaint Patient presents with NEW PATIENT Choledocholithiasis. HPI: 54-year-old woman developed severe right upper quadrant abdominal pain, nausea and vomiting, and was seen in clear [place] over the weekend at the emergency department. She had a white blood cell count of 14, CT scan demonstrating pericholecystic fluid and a stone in the neck of the gallbladder. For some apparent reason she was sent home without antibiotics. She presents today with severe painin her right upper quadrant. The nausea has improved, however she is not eating any significant amount of food. She denies fevers and chills. Past Medical History: Diagnosis Date Anxiety and depression CVA (cerebral vascular accident) (HCC) Diabetes (HCC) High cholesterol Hypertension Past Surgical History: Procedure Laterality Date ANESTH, TUBAL LIGATION Bilateral 1997 Current Outpatient Medications Medication Sig Dispense Refill Atorvastatin Calcium 80 MG Oral Tablet (Lipitor) Take 0.5 Tablets by mouth in the morning. Citalopram Hydrobromide 40 MG Oral Tablet (CeleXA) Take 1 Tablet by mouth in the morning. Clopidogrel Bisulfate 75 MG Oral Tablet (pLAVix) Take 1 Tablet by mouth in the morning. Fluticasone Propionate 50 MCG/ACT Nasal Suspension (Flonase Allergy Relief) FLONASE ALLERGY RELIEF 50 MCG/ACT SUSP hydrOXYzine HCl 10 MG Oral Tablet (Atarax) take 1 tablet by mouth once daily as needed for anxiety metFORMIN HCl 1000 MG Oral Tablet (Glucophage) 1 Tablet 2 times a day with morning and evening meals. Lisinopril 10 MG Oral Tablet (Prinivil) Take 1 Tablet by mouth in the morning. 90 Tablet 3 No current facility-administered medications for this visit. Review of patient's allergies indicates: No Known Allergies Social History: Social History Tobacco Use Smoking status: Never Smokeless tobacco: Never Substance Use Topics Alcohol use: Not Currently Vaping/E-Cigarette Use Vaping/E-Cigarette Use Never User Vaping/E-Cigarette Substances Vaping/E-Cigarette Devices ROS As per HPI, otherwise negative OBJECTIVE: PHYSICAL EXAM: BP 135/80 | Pulse 85 | Wt 102.1 kg (225 lb) | BMI 41.15 kg/m² | BSA 2.11 m² General: alert, healthy, and no distress Head: Normocephalic, No masses, lesions, tenderness or abnormalities Eye Exam: conjunctiva are pink and non-injected, sclera clear Heart: regular rate & rhythm, no murmur, and no gallops Lungs: chest symmetric with normal AP diameter, no chest deformities noted, lungs clear to auscultation Abdomen: abdomen soft, obese, no masses or organomegaly, and significant tenderness to palpation inthe right upper quadrant epigastric region, guarding Extremities: no edema, no clubbing, no cyanosis Skin: skin color, texture, turgor are normal, no rashes or significant lesions ASSESSMENT: (K81.0) Acute cholecystitis (primary encounter diagnosis) PLAN: 54-year-old woman with what appears to be ongoing acute cholecystitis since the weekend. At that time she did have a white count of 15. She is on Plavix. I discussed the situation with her. We will have her proceed to the emergency department at [facility] at any for repeat imaging, lab work, and probable admission to the hospital for IV antibiotics and possible cholecystectomy in the near future if she is off the Plavix. The emergency department has been called. Gael Seo MD 07/26/2024 documented in this encounter Nursing Notes * Keily Anna LPN - 07/26/2024 12:07 PM EDT Called [facility] ER that patient is coming with acute cholecystitis. * Deonte Stevenson MED ASSIST - 07/26/2024 11:21 AM EDT Chief Complaint Patient presents with NEW PATIENT Choledocholithiasis. Verified patient. documented in this encounter Plan of Treatment Upcoming Encounters Date Type Department Care Team (Late st Contact Info) Description 08/16/2024 2:10 PM EDT Telemedicine Pharmacy, [address] [place] [phone] [place] [address] 10/17/2024 1:00 PM EDT Office Visit Family Medicine [address] [place] [phone] Rema Mendiola MD [address] [place] [address] [place] [phone] Scheduled Referrals Name Type Priority Associated Diagnoses Orde r Schedule SURGERY REFERRAL OP Referral Within 30 da ys (routine) Choledocholithiasis Ordered: 07/23/2024 Health Maintenance Due Date Last Done Comments [...] 07/18/2025 07/18/2024 Depression Screening 07/18/2025 07/18/2024 GFR 07/25/2025 07/25/2024, 05/2024, 02/09/2023, Additional history exists Lipid Panel 07/18/2029 07/18/2024 [...] as of this encounter Visit Diagnoses Diagnosis Acute cholecystitis- Primary documented in this encounter Care Teams Engineer Soils Relationship Specialty Start Date End Date Rema Mendiola MD [address] [place] [address] [place] [phone] PCP - General Family Medicine 07/18/24 documented as of this encounter"
--- OUTSIDE RECORDS SUMMARY | 2024-07-27 03:37 | External Medical Summary ---
Author Name Unknown Address Unknown Organization K01:[facility]ATORY [facility] - [address] [facility] [address] Laboratory Report Ordering Provider Test Date Status LORRAINE HUGHES 07/18/2024 11:24:37 Final Observation Date Value Abnormality Reference (Units ) Status BUN 07/18/2024 11:24:37 24 Above high normal 6-20 (mg/dL) Final Creatinine 07/18/2024 11:24:37 1.5 Above high normal 0.5-1.0 (mg/dL) Final Glomerular filtration rate/1.73 sq M.predicted [Volume Rate/Area] in Serum, Plasma or Blood by Creatinine-based formula (CKD-EPI) 07/18/2024 11:24:37 42 Below low normal >=60 (mL/min) Final eGFR is calculated based on the CKD-EPI 2020 equation. Sodium 07/18/2024 11:24:37 140 135-146 (m mol/L) Final Potassium 07/18/2024 11:24:37 4.5 3.5-5.1 (m mol/L) Final Cl 07/18/2024 11:24:37 104 98-107 (mm ol/L) Final CO2 07/18/2024 11:24:37 24 22-32 (mmo l/L) Final Anion gap 07/18/2024 11:24:37 12 7-15 (mmol /L) Final Glucose 07/18/2024 11:24:37 160 Above high normal 70 -120 (mg/dL) Final Albumin 07/18/2024 11:24:37 4.1 3.8-5.0 (g /dL) Final AST (Aspartate aminotransferase) 07/18/2024 11:24:37 18 10-35 (U/L) Fin al Alk Phos 07/18/2024 11:24:37 84 35-130 (U/ L) Final Bilirubin, Total 07/18/2024 11:24:37 0.6 <=1 .2 (mg/dL) Final Calcium 07/18/2024 11:24:37 9.2 8.4-10.2 ( mg/dL) Final Protein 07/18/2024 11:24:37 6.6 6.0-8.3 (g /dL) Final ALT (Alanine aminotransferase) 07/18/2024 11:24:37 17 10-35 (U/L) Noam finnegan Performing Location LABORATORY [facility] [place] - [address] [facility] [address]
--- OUTSIDE RECORDS SUMMARY | 2024-07-27 03:37 | External Medical Summary ---
Author Name Unknown Address Unknown Organization K01[facility] [place] [facility] [address] [facility] [place] [address] Laboratory Report Ordering Provider Test Date Status LORRAINE HUGHES 07/18/2024 11:24:37 Final Observation Date Value Abnormality Reference (Units ) Status WBC, Total 07/18/2024 11:24:37 8.75 4.00-10.80 (K/uL) Final RBC 07/18/2024 11:24:37 4.39 3.85-5.15 (M/uL) Final Hemoglobin 07/18/2024 11:24:37 13.0 12.0-15.3 (g/dL) Final HCT 07/18/2024 11:24:37 41.3 36.0-45.2 (%) Final MCV 07/18/2024 11:24:37 94.1 81.5-97.5 (fL) Final MCH 07/18/2024 11:24:37 29.6 27.0-34.0 (pg) Final MCHC 07/18/2024 11:24:37 31.5 32.0-36.0 (g/dL) Final RDW 07/18/2024 11:24:37 13.2 11.5-15.5 (%) Final Platelets 07/18/2024 11:24:37 310 140-400 (K/uL) Final MPV 07/18/2024 11:24:37 9.5 6.6-11.1 (fL) Final Nucleated erythrocytes/100 leukocytes [Ratio] in Blood by Automated count 07/18/2024 11:24:37 0 <=0 (/100 WBCs) Final Performing Location [facility] [place] [address] [place] [address]
--- OUTSIDE RECORDS SUMMARY | 2024-07-27 03:37 | External Medical Summary ---
Author Name Unknown Address Unknown Organization K01:[facility] - [address] [facility] [address] Laboratory Report Ordering Provider Test Date Status LORRAINE HUGHES LORRAINE 07/18/2024 11:24:37 Final Observation Date Value Abnormality Reference (Units ) Status Triglyceride 07/18/2024 11:24:37 140 <=174 ( mg/dL) Final Triglyceride Reference Range s (mg/dL):
<150 Acceptable
150-174 Borderline high
175-499 High
>=500 Very high Cholesterol 07/18/2024 11:24:37 123 <200 (mg /dL) Final Total Cholesterol Reference Ranges (mg/dL):
<200 Desirable
200-239 Borderline high
>=240 High HDL 07/18/2024 11:24:37 37 Below low normal >49 (mg/dL) Final HDL Cholesterol Reference Ra nges (mg/dL):
>=60 High (Desirable)
<50 Low (Undesirable) For Females
<40 Low (Undesirable) For Males NON-HDL CHOLESTEROL 07/18/2024 11:24:37 86 <=159 (mg/dL) Final Non-HDL Cholesterol Referenc e Range (mg/dL):
<100 Target level for high risk ASCVD patient
<130 Optimal for general population
130-159 Near optimal for general population
160-189 Borderline High
190-219 High
>=220 Very High LDL, (calculated) 07/18/2024 11:24:37 58 <= 129 (mg/dL) Final LDL Cholesterol Reference Ra nges (mg/dL):
<70 Target level for high risk ASCVD patient
<100 Optimal for general population
100-129 Near optimal for general population
130-159 Borderline high
160-189 High
>=190 Very high
Patient has high LDL cholesterol. Consider screening for Familial Hypercholesterolemia. Performing Location LABORATORY [facility] [place] - [address] [facility] [address]
--- OUTSIDE RECORDS SUMMARY | 2024-07-27 03:37 | External Medical Summary | Summary of Care ---
Author Name Unknown Organization [facility] Address [address] [place] [address] Phone [phone] Care Team Providers Care Fine Grader Name Role Phone Saul Mendiola MD Primary Care Pr ovid Reason for Referral * Evaluate & Treat - Unlimited Visits (Within 10 days (routine)) - Pending Review Specialty Diagnoses / Procedures Referred By Contact Referred To Contact GI NUTRITION/IM / Gastroenterology Diagnoses BMI 40.0-44.9, adult (HCC) Saul Mendiola MD [address] [place] [address] [place] [phone] Phone: tel: fax: Referral ID Status Reason Start Date Expiration Date Visits Requested Visits Authorized [id number] Pending Review Specialty Services Required 07/18/[phone] Question Answer Referral Priority Within 10 days (routine) Where should this appointment be scheduled? [facility] For what condition is the patient being seen? Obesity Is this referral for a GLP1 medication? No Comments THE PATIENT WILL NOT BE PRESCRIBED GLP-1 MEDICATIONS UNLESS: *Documentation of an unsuccessful trial of losing at least 5% of weight loss *Documentation the patient has had tried and failed two [2] non-GLP1 agonists (Phentermine and Wellbutrin/ Naltrexone) *Documentation of two [2] or more appointments discussing weight loss and lifestyle changes *Documentation of a blood pressure and weight within the EMR before initiation of the GLP-1 or non-GLP-1 medications REFERRING PROVIDER MUST ACKNOWLEDGE ALL OF THE CONDITIONS ABOVE ARE MET AND HAVE A BMI >35. IF THESE CONDITIONS ARE NOT MET THE PATIENT WILL NOT BE PRESCRIBED GLP- 1 PRESCRIPTIONS. Reason for Visit * Reason Onset Date Comments NEW PATIENT Immunizations 07/18/2024 Encounter Details Date Type Department Care Team (Late st Contact Info) Description 07/18/2024 10:40 AM EDT Office Visit Family Medicine [address] [place] [phone] Saul Mendiola MD [address] [place] [address] [place] [phone] Type 2 diabetes mellitus with diabetic mononeuropathy, without long-term current use of insulin (HCC)*; Need for acnirlxutc-gfkddct-yx rtussis (Tdap) vaccine; BMI 40.0-44.9, adult (HCC); Need for hepatitis C screening test; Special screening examination for viral disease; Hyperlipidemia with target LDL less than 100; B12 deficiency; HTN, goal below 130/80; History of CVA (cerebrovascular accident); Elevated serum creatinine Allergies No known active allergiesdocumented as of this encounter (statuses as of 07/20/2024) Medications Atorvastatin Calcium 80 MG Oral Tablet [...] with morning and evening meals. 3 Active Mounjaro 2.5 MG/0.5ML Subcutaneous Solution Auto-injector (Tirzepatide) Inject 2.5 mg under the skin once a week. 2 mL 11 5 07/19/19 26 Active Lisinopril 10 MG Oral Tablet (Prinivil) Take 1 Tablet by mouth in the morning. 90 Tablet 3 Active Lisinopril 10 MG Oral Tablet (Prinivil) Take 1 Tablet by mouth in the morning. 07/19/19 25 Discontinu ed(Refill) documented as of this encounter (statuses as of 07/20/2024) Active Problems Problem Noted Date Diagnosed Date BMI 40.0-44.9, adult 07/18/2024 Type 2 diabetes mellitus wit h diabetic mononeuropathy, without long-term current use of insulin 07/18/2024 Hyperlipidemia with target LDL less than 100 05/2024 B12 deficiency 07/18/2024 HTN, goal below 130/80 07/18/2024 documented as of this encounter (statuses as of 07/20/2024) Immunizations Name Administration Dates Next Due TDAP, Age 7 and older, IM (Adacel) 07/18/2024 documented as of this encounter Social History Tobacco Use Types Packs/Day Years Used Date Smoking Tobacco: Never Smokeless Tobacco: Never Tobacco Cessation:Counseling Given: Not Answered Alcohol Use Standard Drinks/Week Comments Not Currently [...] Sign Reading Time Taken Comments Blood Pressure 102/70 07/18/2024 10:41 AM EDT Pulse 80 07/18/2024 10:41 AM EDT Temperature 35.6 °C (96 °F) 07/18/2024 10: 41 AM EDT Respiratory Rate - - Oxygen Saturation 95% 07/18/2024 10: 41 AM EDT Inhaled Oxygen Concentration - - Weight 103.8 kg (228 lb 12.8 oz) 2024 10:41 AM EDT Height 157.5 cm (5' 2") 07/18/2024 10:4 1 AM EDT Body Mass Index 41.85 07/18/2024 10:41 AM EDT documented in this encounter Patient Instructions * Patient Instructions* Saul Mendiola MD - 07/18/2024 10:51 AM EDT My fitness pal luis antonio for calorie counting ~~PATIENT INSTRUCTIONS FOR TDAP VACCINE~~ Possible side effects of TDAP vaccine, (tetanus shot), are usually mild and can include: 1. Soreness or redness at injection site 2. Low grade fever 3. Body aches You may use a fever / pain reducing medication as needed for these symptoms. LET YOUR DOCTOR KNOW IMMEDIATELY IF YOU HAVE DIFFICULTY BREATHING OR SWALLOWING, EXPERIENCE ITCHINGOF FEET OR HANDS, HAVE SWELLING OF EYES, FACE OR INSIDE OF NOSE. documented in this encounter Progress Notes * Saul Mendiola MD - 07/18/2024 10:59 AM EDT Images from the original note were not included. History of Present Illness Sweta Scott is a 54 year old female that presents for NEW PATIENT and Immunizations History of Present Illness Sweta Scott is a 54 year old female with a history of stroke, hypertension, diabetes, and high cholesterol who presents with concerns about weight management. She has experienced weight fluctuations between 221 and 238 pounds over the past decade. Despite trying Ozempic, it was ineffective for weight loss, leading to its discontinuation within the last month. She has insulin resistance and has made dietary changes, including increasing protein intake andreducing carbohydrates and sugars. She began exercising two months ago, incorporating walking and using a device called a 'hernando' to engage her core, but has not observed any changes in her weight. She has a history of type 2 diabetes and was previously on Ozempic. After discontinuing Ozempic, she took metformin intermittently, with her last recorded blood sugar levels being 109 and 147. She isnot currently taking metformin daily. She has a history of hypertension and is currently taking lisinopril, which effectively controls her blood pressure. She has a history of high cholesterol but has not had recent lab work to confirm her current status. She has a history of stroke and is currently taking Plavix as a blood thinner. There are no indications of recent stroke-related issues. No history of smoking, vaping, alcohol, or drug use. She had a tubal ligation in 1997 and is not aware of any allergies. She recently received a flu shot and believes she had a pneumonia shot a long time ago. She is unsure about her last Pap smear and has not had recent colon cancer screening, though she is open to completing a Cologuard test. She had a mammogram in 2023 and an eye exam within the last year. No heart history, bowel issues, blood in stool, swelling in legs, or different urination patterns. She takes a probiotic and has no known allergies. Uncertain of last pap Cologuard ok Stroke, follows with [facility] Physical Exam BP 102/70 | Pulse 80 | Temp 96 °F (35.6 °C) (Infrared ) | Ht 5' 2" (1.575 m) | Wt 228 lb 12.8 oz (103.8 kg) | SpO2 95% | BMI 41.85 kg/m² | BSA 2.13 m² Physical Exam Vitals and nursing note reviewed. Constitutional: General: She is not in acute distress. Appearance: She is obese. HENT: Head: Normocephalic and atraumatic. Mouth/Throat: Mouth: Mucous membranes are moist. Eyes: Extraocular Movements: Extraocular movements intact. Neck: Thyroid: No thyromegaly. Cardiovascular: Rate and Rhythm: Normal rate and regular rhythm. Pulmonary: Breath sounds: Normal breath sounds. No wheezing or rhonchi. Abdominal: General: Bowel sounds are normal. There is no distension. Palpations: Abdomen is soft. Tenderness: There is no abdominal tenderness. Musculoskeletal: General: Normal range of motion. Cervical back: Normal range of motion and neck supple. Right lower leg: No edema. Left lower leg: No edema. Lymphadenopathy: Cervical: No cervical adenopathy. Upper Body: Right upper body: No supraclavicular adenopathy. Left upper body: No supraclavicular adenopathy. Skin: General: Skin is warm and dry. Findings: No lesion or rash. Neurological: General: No focal deficit present. Mental Status: She is alert and oriented to person, place, and time. Psychiatric: Mood and Affect: Mood normal. Behavior: Behavior normal. Assessment and Plan Assessment & Plan Obesity Weight management has been challenging with previous ineffective treatment. Mounjaro may offer better outcomes. Prescribe Mounjaro and recommend dietary tracking with apps. Refer to the GI nutrition team. Consider bariatric surgery if Mounjaro fails. Type 2 Diabetes Mellitus Type 2 diabetes is managed with metformin. Blood glucose levels need assessment for Mounjaro coverage. Order blood glucose test and continue metformin as needed. Try to get eye exam results send over Hypertension Hypertension is well-controlled with lisinopril. Continue lisinopril. Hyperlipidemia Current lipid status is unknown. Review previous records for lipid levels. Stroke History of stroke is managed with Plavix. No recent events. Continue Plavix. Preventive Health Maintenance She is due for screenings. Discussed colon cancer screening. Uncertain about pneumonia vaccination and Pap smear. Provide Cologuard test. Review records for pneumonia vaccination and Pap smear. Checkhepatitis C and HIV status. Follow-up Follow-up is needed to assess treatment effectiveness and review labs. Schedule follow-up in three months. Review lab results and adjust treatment. Type 2 diabetes mellitus with diabetic mononeuropathy, without long-term current use of insulin (HCC) - HEMOGLOBIN A1C; Future - ALBUMIN / CREATININE RATIO, URINE; Future Need for sgjqdeyzoe-erltlvu-svzbvtirj (Tdap) vaccine - TDAP (AGE 7 AND OLDER), ADACEL BMI 40.0-44.9, adult (HCC) Discussed calorie counting, can use apps. Exercise goal is 30 mins of brisk exercise most days of the week. - GI NUTRITION REFERRAL OP Need for hepatitis C screening test - HEPATITIS C ANTIBODY SCREEN WITH PROGRESSION TO HEPATITIS C RNA QUANTITATIVE; Future Special screening examination for viral disease - HIV ANTIGEN & ANTIBODY SCREEN W/ CONFIRMATION; Future Hyperlipidemia with target LDL less than 100 - COMPREHENSIVE METABOLIC PANEL; Future - LIPID PANEL WITH DIRECT LDL IF TG IS HIGH; Future B12 deficiency Check CBC and B12 levels - CBC WITH WBC DIFFERENTIAL; Future - VITAMIN B12; Future HTN, goal below 130/80 History of CVA (cerebrovascular accident) Wrap-Up Follow-up: Return in about 3 months (around 10/17/2024). | Check-out note: Please request diabetic eye exam- in [place] by Festus? Time: I spent a total of 20-29 minutes (exact time 23 mins) on the date of service in preparation, delivery, and documentation of the care provided to Sweta Scott excluding any time spent in the performance of separately billed services. Text in this note was generated using an ambient documentation service. I discussed the use of a device to record and summarize our discussion today. All persons present during the encounter consented to its use. documented in this encounter Nursing Notes * Tasneem Doss CMA - 07/18/2024 10:41 AM EDT Here to establish care. Weight loss? documented in this encounter Miscellaneous Notes * Addendum Note - Saul Mendiola MD - 07/20/2024 11:06 AM EDT Addended by: SAUL MENDIOLA on: 07/20/2024 11:06 AM Modules accepted: Orders documented in this encounter Plan of Treatment Upcoming Encounters Date Type Department Care Team (Late st Contact Info) Description 08/16/2024 2:10 PM EDT Telemedicine Pharmacy, [address] [place] [phone] [place] [id number] 10/17/2024 1:00 PM EDT Office Visit Family Medicine [address] [place] [phone] Saul Mendiola MD [address] [place] [address] [place] [phone] Scheduled Orders Name Type Priority Associated Diagnoses Orde r Schedule BASIC METABOLIC PANEL Lab Routine Elevated serum creatinine Expected: 07/27/2024 (Approximate), Expires: 07/20/2025 Scheduled Referrals Name Type Priority Associated Diagnoses Orde r Schedule GI NUTRITION REFERRAL OP Referral Within 10 days (routine) BMI 40.0-44.9, adult (HCC) Ordered: 07/18/2024 Health Maintenance Due Date Last Done Comments [...] Not on filedocumented as of this encounter Results * HIV ANTIGEN & ANTIBODY SCREEN W/ CONFIRMATION (07/18/2024 11:24 AM EDT) [facility] [address] HIV Antigen & Antibody Negative Negative 07/19/2024 5:22 AM EDT [facility] [place]:Negative HIV-1/2 ant igen and antibody screening tset results usually indicate the absence of HIV-1 and HIV-2 infection. However, such negative results do not rule-out acute HIV infection. If acute HIV-1 infection is highly suspected, it is recommended that a specimen be submitted for detection of HIV-1 RNA. Blood Venous blood specimen / Unknown Venipuncture / Unknown 07/18/2024 11:24 AM EDT 07/18/2024 11:24 AM EDT Saul Wallis MD LAB BLOOD ORDERA BLES Final Result Performing Organization Address City/[facility] Co de Phone Number [facility] [address] [place] [address] * VITAMIN B12 (07/18/2024 11:24 AM EDT) [facility] [address] Vitamin B12 434 232 - 1,245 pg/mL 07/19/2024 6:43 AM EDT [facility] Blood Venous blood specimen / Unknown Venipuncture / Unknown 07/18/2024 11:24 AM EDT 07/18/2024 11:24 AM EDT us Saul Wallis MD LAB BLOOD ORDERA BLES Final Result Performing Organization Address City/[facility] Co de Phone Number [facility] [address] [place] [address] * ALBUMIN / CREATININE RATIO, URINE (07/18/2024 11:24 AM EDT) [facility] [address] Albumin, Random Urine 2.00 mg/dL 07/18/2024 11:24 PM EDT [facility] Creatinine, Random Urine 121 mg/dL 07/18/2024 11:24 PM EDT [facility] Albumin / Creatinine Ratio, Urine 17 <30 mg/g Creat 07/18/2024 11:24 PM EDT [facility] Urine Urine specimen obtained by clean catch procedure / Unknown Non-blood Collection / Unknown 07/18/2024 11:24 AM EDT 07/18/2024 11:24 AM EDT Narrative [facility] - 07/18/2024 11:24 PM EDT Normal: <30 mg/g creatinine High: 30-300 mg/g creatinine Very High: >300 mg/g creatinine Nephrotic: >2200 mg/g creatinine us Saul Wallis MD LAB URINE ORDERA BLES Final Result [facility] [address] [place] [address] * (ABNORMAL) LIPID PANEL WITH DIRECT LDL IF TG IS HIGH (07/18/2024 11:24 AM EDT) Triglycerides 140 <=174 mg/dL 07/19/2024 5:05 AM EDT [facility] Comment: Triglyceride Reference Ranges (mg/dL): <150 Acceptable 150-174 Borderline high 175-499 High >=500 Very high Cholesterol 123 <200 mg/dL 07/19/2024 5:05 AM EDT [facility] Comment: Total Cholesterol Reference Ranges (mg/dL): <200 Desirable 200-239 Borderline high >=240 High HDL Cholesterol 37(L) >49 mg/dL 5:05 AM EDT [facility] [place]: HDL Cholesterol Reference Ranges (mg/dL): >=60 High (Desirable) <50 Low (Undesirable) For Females <40 Low (Undesirable) For Males Non-HDL Cholesterol 86 <=159 mg/dL 07/19/2024 5:05 AM EDT [facility] Comment: Non-HDL Cholesterol Reference Range (mg/dL): <100 Target level for high risk ASCVD patient <130 Optimal for general population 130-159 Near optimal for general population 160-189 Borderline High 190-219 High >=220 Very High LDL Cholesterol 58 <=129 mg/dL 07/19/2024 5:05 AM EDT [facility] Comment: LDL Cholesterol Reference Ranges (mg/dL): <70 Target level for high risk ASCVD patient <100 Optimal for general population 100-129 Near optimal for general population 130-159 Borderline high 160-189 High >=190 Very high Patient has high LDL cholesterol. Consider screening for Familial Hypercholesterolemia. Blood Venous blood specimen / Unknown Venipuncture / Unknown 07/18/2024 11:24 AM EDT 07/18/2024 11:24 AM EDT Saul Wallis MD LAB BLOOD ORDERA BLES Final Result [facility] [address] [place] [address] * (ABNORMAL) COMPREHENSIVE METABOLIC PANEL (07/18/2024 11:24 AM EDT) BUN 24(H) 6 - 20 mg/dL 07/19/2024 5:05 AM EDT LABORATORY C CREATININE 1.5(H) 0.5 - 1.0 mg/dL 07/19/2024 5:05 AM EDT [facility] EGFR 42(L) >=60 mL/min 07/19/2024 5:05 AM EDT [facility] Comment:eGFR is calculated b ased on the CKD-EPI 2020 equation. SODIUM 140 135 - 146 mmol/L 07/19/2024 5:05 AM EDT [facility] POTASSIUM 4.5 3.5 - 5.1 mmol/L 07/19/2024 5:05 AM EDT LABORATORY C CHLORIDE 104 98 - 107 mmol/L 07/19/2024 5:05 AM EDT [facility] CO2 24 22 - 32 mmol/L 07/19/2024 5:05 AM EDT LABORATORY C ANION GAP 12 7 - 15 mmol/L 07/19/2024 5:05 AM EDT LABORATORY C GLUCOSE 160(H) 70 - 120 mg/dL 07/19/2024 5:05 AM EDT [facility] Albumin 4.1 3.8 - 5.0 g/dL 07/19/2024 5:05 AM EDT [facility] AST 18 10 - 35 U/L 07/19/2024 5:05 AM EDT [facility] Alkaline Phosphatase 84 35 - 130 U/L 07/19/2024 5:05 AM EDT [facility] Bilirubin, Total 0.6 <=1.2 mg/dL 07/19/2024 5:05 AM EDT [facility] CALCIUM 9.2 8.4 - 10.2 mg/dL 07/19/2024 5:05 AM EDT [facility] Protein 6.6 6.0 - 8.3 g/dL 07/19/2024 5:05 AM EDT LABORATORY C ALT 17 10 - 35 U/L 07/19/2024 5:05 AM EDT [facility] Blood Venous blood specimen / Unknown Venipuncture / Unknown 07/18/2024 11:24 AM EDT 07/18/2024 11:24 AM EDT us Saul Wallis MD LAB BLOOD ORDERA BLES Final Result Performing Organization Address [facility] de Phone Number [facility] [address] [place] [address] * (ABNORMAL) HEMOGLOBIN A1C (07/18/2024 11:24 AM EDT) [facility] [address] [facility] Hemoglobin A1C 7.1(H) 4.0 - 5.6 % 07/19/2024 4:09 AM EDT [facility] Comment:The use of HbA1c to monitor glycemic status is based on normal hemoglobin and HbA composition. This test should not be used in patients with abnormal hemoglobin that affects the half life of the red blood cell or the in vivo glycation rates. Estimated Average Glucose 157(H) <126 mg/dL 07/19/2024 4:09 AM EDT [facility] Blood Venous blood specimen / Unknown Venipuncture / Unknown 07/18/2024 11:24 AM EDT 07/18/2024 11:24 AM EDT us Saul Wallis MD LAB BLOOD ORDERA BLES Final Result Performing Organization Address [facility] de Phone Number [facility] [address] [place] [address] documented in this encounter Visit Diagnoses Diagnosis Type 2 diabetes mellitus with diabetic mononeuropathy, without long-term current use of insulin (HCC)- Primary Need for lzwkupvrfu-zxsjfne-bkniwuxyg (Tdap) vaccine Need for prophylactic vaccination with combined ieuywjrzlh-ovmhoqx-iakermpkx (DTP) vaccine BMI 40.0-44.9, adult (HCC) Body Mass Index 40.0-44.9, adult Need for hepatitis C screening test Special screening examination for other specified viral diseases Special screening examination for viral disease Special screening examination for unspecified viral disease Hyperlipidemia with target LDL less than 100 Other and unspecified hyperlipidemia B12 deficiency Other B-complex deficiencies HTN, goal below 130/80 Unspecified essential hypertension History of CVA (cerebrovascular accident) Transient ischemic attack (TIA), and cerebral infarction without residual deficits Elevated serum creatinine Other nonspecific findings on examination of blood documented in this encounter Care Teams Fine Grader Relationship Specialty Start Date End Date Saul Mendiola MD [address] [place] [address] [place] [phone] PCP - General Family Medicine 07/18/24 documented as of this encounter
--- OUTSIDE RECORDS SUMMARY | 2024-07-27 03:37 | External Medical Summary | Summary of Care ---
Author Name Unknown Organization [facility] Address [address] [place] [address] Phone [phone] Care Team Providers Care High Density Talc Coater Operator Name Role Phone Rema Mendiola MD Primary Care Pr ovid Reason for Referral * Evaluate & Treat - Unlimited Visits (Within 10 days (routine)) - Pending Review Specialty Diagnoses / Procedures Referred By Contact Referred To Contact GI NUTRITION/IM / Gastroenterology Diagnoses BMI 40.0-44.9, adult (HCC) Rema Mendiola MD [address] [place] [address] [place] [address] Phone: tel: fax: Referral ID Status Reason Start Date Expiration Date Visits Requested Visits Authorized [id number] Pending Review Specialty Services Required 07/18/2024 999 [...] 10:40 AM EDT Office Visit Family Medicine [address] [place] [phone] Rema Mendiola MD [address] [place] [address] [place] [phone] Type 2 diabetes mellitus with diabetic mononeuropathy, without long-term current use of insulin (HCC)*; Need for ktjbulfvzn-rdnrwhi-lm rtussis (Tdap) vaccine; BMI 40.0-44.9, adult (HCC); Need for hepatitis C screening test; Special screening examination for viral disease; Hyperlipidemia with target LDL less than 100; B12 deficiency; HTN, goal below 130/80; History of CVA (cerebrovascular accident) Allergies No known active allergiesdocumented as of this encounter (statuses as of 07/18/2024) Medications Atorvastatin Calcium 80 MG Oral Tablet [...] the morning. 90 Tablet 3 5 Active Lisinopril 10 MG Oral Tablet (Prinivil) Take 1 Tablet by mouth in the morning. 07/19/19 25 Discontinu ed(Refill) documented as of this encounter (statuses as of 07/18/2024) Active Problems Problem Noted Date Diagnosed Date BMI 40.0-44.9, adult 07/18/2024 Type 2 diabetes mellitus wit h diabetic mononeuropathy, without long-term current use of insulin 07/18/2024 Hyperlipidemia with target LDL less than 100 05/2024 B12 deficiency 07/18/2024 HTN, goal below 130/80 07/18/2024 documented as of this encounter (statuses as of 07/18/2024) Immunizations Name Administration Dates Next Due TDAP, [...] this encounter Patient Instructions * Patient Instructions* Rema Mendiola MD - 07/18/2024 10:51 AM EDT [...] documented in this encounter Progress Notes * Rema Mendiola MD - 07/18/2024 10:59 AM EDT [...] last pap Cologuard ok Stroke, follows with [facility] Physical Exam BP 102/70 | Pulse 80 [...] / CREATININE RATIO, URINE; Future Need for awqizuhxsn-mgakwpj-llzjadseh (Tdap) vaccine - TDAP (AGE 7 AND [...] note: Please request diabetic eye exam- in [place] by Festus? Time: I spent a total [...] care. Weight loss? documented in this encounter Plan of Treatment Upcoming Encounters Date Type Department Care Team (Late st Contact Info) Description 10/17/2024 1:00 PM EDT Office Visit Family Medicine [address] [phone] Rema Mendiola MD [address] [place] [address] [place] [phone] Pending Results Name Type Priority Associated Diagnoses Date /Time HEMOGLOBIN A1C Lab Routine Type 2 diabetes mellitus with diabetic mononeuropathy, without long-term current use of insulin ([facility]) 07/18/2024 11:24 AM EDT COMPREHENSIVE METABOLIC PANEL Lab Routine Hyperlipidemia with target LDL less than 100 07/18/2024 11:24 AM EDT CBC WITH WBC DIFFERENTIAL Lab Routine B12 deficiency 07/18/2024 11:24 AM EDT LIPID PANEL WITH DIRECT LDL IF TG IS HIGH Lab Routine Hyperlipidemia with target LDL less than 100 07/18/2024 11:24 AM EDT ALBUMIN / CREATININE RATIO, URINE Lab Routine Type 2 diabetes mellitus with diabetic mononeuropathy, without long-term current use of insulin (HCC) 07/18/2024 11:24 AM EDT VITAMIN B12 Lab Routine B12 deficiency 07/18/2024 11:24 AM EDT HEPATITIS C ANTIBODY SCREEN WITH PROGRESSION TO HEPATITIS C RNA QUANTITATIVE Lab Routine Need for hepatitis C screening test 07/18/2024 11:24 AM EDT HIV ANTIGEN & ANTIBODY SCREEN W/ CONFIRMATION Lab Routine Special screening examination for viral disease 07/18/2024 11:24 AM EDT Scheduled Orders Name Type Priority Associated Diagnoses Orde r Schedule HEMOGLOBIN A1C Lab Routine Type 2 diabetes mellitus with diabetic mononeuropathy, without long-term current use of insulin (HCC) Expected: 07/18/2024 (Approximate), Expires: 07/18/2025 COMPREHENSIVE METABOLIC PANEL Lab Routine Hyperlipidemia with target LDL less than 100 Expected: 07/18/2024 (Approximate), Expires: 08/17/2025 CBC WITH WBC DIFFERENTIAL Lab Routine B12 deficiency Expected: 07/18/2024 (Approximate), Expires: 07/18/2025 LIPID PANEL WITH DIRECT LDL IF TG IS HIGH Lab Routine Hyperlipidemia with target LDL less than 100 Expected: 07/18/2024 (Approximate), Expires: 07/18/2025 ALBUMIN / CREATININE RATIO, URINE Lab Routine Type 2 diabetes mellitus with diabetic mononeuropathy, without long-term current use of insulin (HCC) Expected: 07/18/2024, Expires: 07/18/2025 VITAMIN B12 Lab Routine B12 deficiency Expected: 07/18/2024 (Approximate), Expires: 07/18/2025 HEPATITIS C ANTIBODY SCREEN WITH PROGRESSION TO HEPATITIS C RNA QUANTITATIVE Lab Routine Need for hepatitis C screening test Expected: 07/18/2024 (Approximate), Expires: 08/17/2025 HIV ANTIGEN & ANTIBODY SCREEN W/ CONFIRMATION Lab Routine Special screening examination for viral disease Expected: 07/18/2024, Expires: 07/18/2025 Scheduled Referrals Name Type Priority Associated Diagnoses Orde r Schedule GI NUTRITION REFERRAL OP Referral Within 10 days (routine) BMI 40.0-44.9, adult (HCC) Ordered: 07/18/2024 Health Maintenance Due Date Last Done Comments Lipid Panel 1969 HbA1c 1975 HIV Screening 1984 Albumin/Creatinine Ratio 1987 B-12 1987 Diabetic Foot Exam 1987 Hepatitis C Screening 1987 Hepatitis B Vaccine (1 of 3 - 19+ 3-dose series) 1988 Pap Smear 1990 Cervical Cancer Screening 1999 HPV/Co-Test 1999 Colonoscopy 2014 Fecal Occult Blood Test 2014 Sigmoidoscopy 2014 Zoster Vaccines (1 of 2) 2019 Diabetic Eye Exam 08/06/2022 08/06/2021 COVID-19 Vaccine (1 - season) 2023 GFR 02/10/2024 02/09/2023, 12/2020, 07/21/2020, Additional history exists Cologuard 10/21/2024 10/21/2021, 08/18/2020 Colorectal Cancer Screening 10/21/2024 Influenza Vaccine (FLU shot) (Season Ended) 2024 Mammogram 03/27/2025 03/27/2024, 08/2022, 03/22/2023, Additional history exists Depression Screening 07/18/2025 07/18/2024 DTap/Tdap Vaccines (2 - Td or [...] as of this encounter Visit Diagnoses Diagnosis Type 2 diabetes mellitus with diabetic mononeuropathy, without long-term current use of insulin (HCC)- Primary Need for usahuydxrn-bikviqf-wfjmwreqj (Tdap) vaccine Need for prophylactic vaccination with combined bjkwwlfcec-tlrvrmh-hjhhxiazo (DTP) vaccine BMI 40.0-44.9, adult (HCC) Body [...] (TIA), and cerebral infarction without residual deficits documented in this encounter Care Teams High Density Talc Coater Operator Relationship Specialty Start Date End Date Rema Mendiola MD [address] [place] [address] [place] [phone] PCP - General Family Medicine 07/18/24 documented as of this encounter
--- OUTSIDE RECORDS SUMMARY | 2024-07-27 03:37 | External Medical Summary | Summary of Care ---
Author Name Unknown Organization [facility] Address [address] [place] [address] Phone [phone] Care Team Providers Care Analysis Intern Name Role Phone Rema Mendiola MD Primary Care Pr ovid Reason for Referral * Evaluate & Treat - Unlimited Visits (Within 10 days (routine)) - Pending Review Specialty Diagnoses / Procedures Referred By Contact Referred To Contact GI NUTRITION/IM / Gastroenterology Diagnoses BMI 40.0-44.9, adult (HCC) Rema Mendiola MD [address] [place] [address] [place] [phone] Phone: tel: fax: Referral ID Status Reason Start Date Expiration Date Visits Requested Visits Authorized [id number] Pending Review Specialty Services Required 07/18/2024 999 [...] 10:40 AM EDT Office Visit Family Medicine [address] [place] [phone] Rema Mendiola MD [address] [place] [address] [place] [phone] Type 2 diabetes mellitus with diabetic mononeuropathy, without long-term current use of insulin (HCC)*; Need for ybkcbbhghe-reqzpgs-sv rtussis (Tdap) vaccine; BMI 40.0-44.9, adult (HCC); [...] last pap Cologuard ok Stroke, follows with [facility] Physical Exam BP 102/70 | Pulse 80 [...] / CREATININE RATIO, URINE; Future Need for vdeeyjorzp-gqpimfk-rqmjzxilu (Tdap) vaccine - TDAP (AGE 7 AND [...] note: Please request diabetic eye exam- in [place] by Festus? Time: I spent a total [...] Description 08/16/2024 2:10 PM EDT Telemedicine Pharmacy, [address] [place] [address] [place] [address] 10/17/2024 1:00 PM EDT Office Visit Family Medicine [address] [place] [phone] Rema Mendiola MD [address] [place] [address] [place] [phone] Pending Results Name Type Priority Associated Diagnoses Date /Time HEMOGLOBIN A1C Lab Routine Type 2 diabetes mellitus with diabetic mononeuropathy, without long-term current use of insulin (HCC) 07/18/2024 11:24 AM EDT COMPREHENSIVE METABOLIC PANEL [...] shot) (Season Ended) 2024 Mammogram 03/27/2025 03/27/2024, 1208/2022, 03/22/2023, Additional history exists Depression Screening 07/18/2025 [...] use of insulin (HCC)- Primary Need for jmtwcjaiok-oewbqpx-rzuklqdkr (Tdap) vaccine Need for prophylactic vaccination with combined juhxwelxon-hqqpijo-rvwdlvidn (DTP) vaccine BMI 40.0-44.9, adult (HCC) Body [...] deficits documented in this encounter Care Teams Analysis Intern Relationship Specialty Start Date End Date Rema Mendiola MD [address] [place] [address] [place] [phone] PCP - General Family Medicine 07/18/24 documented as of this encounter
--- OUTSIDE RECORDS SUMMARY | 2024-07-27 03:37 | External Medical Summary ---
Author Name Unknown Address Unknown Organization K01:[facility] [place], [place] - [address] [place] [address] Laboratory Report Ordering Provider Test Date Status SAULADAMADA PETERS 07/18/2024 11:24:37 Final Observation Date Value Abnormality Reference (Units ) Status Hep C Ab 07/18/2024 11:24:37 Negative Negative Final Further HCV quantitative chiara ting not performed per protocol. Performing Location [facility] [place], [place] - [address] [place] [address]
--- OUTSIDE RECORDS SUMMARY | 2024-07-27 03:37 | External Medical Summary | Summary of Care ---
Author Name Unknown Organization [facility] Address [address] [place] [address] Phone [phone] Care Team Providers Care Clinical Education Academic Coordinator Name Role Phone Elliott Figueredo DO Primary Care Provider [phone] Encounter Details Date Type Department Care Team (Late st Contact Info) Description 05/21/2024 Population Health External Data Unspecified Department Social History Tobacco Use Types Packs/Day Years Used Date Smoking Tobacco: Never Assessed Comments No Sex and Gender Information Value Date Recorded Sex Assigned at Not on file Legal Sex Female 5:55 AM EST Gender Identity Not on file Sexual Orientation Not on file documented as of this encounter Plan of Treatment Health Maintenance Due Date Last Done Comments Lipid Panel 1969 Depression Screening 1981 HIV Screening 1984 Hepatitis C Screening 1987 DTap/Tdap Vaccines (1 - Tdap) 1988 Hepatitis B Vaccine (1 of 3 - 19+ 3-dose series) 1988 Pap Smear 1990 Cervical Cancer Screening 1999 HPV/Co-Test 1999 Colonoscopy 2014 Fecal Occult Blood Test 2014 Sigmoidoscopy 2014 Zoster Vaccines (1 of 2) 2019 COVID-19 Vaccine ( - season) 2023 Influenza Vaccine (FLU shot) (#1) 2023 Cologuard 10/21/2024 10/21/2021, 08/18/2020 Colorectal Cancer Screening 10/21/2024 Mammogram 03/27/2025 03/27/2024, 1208/2022, 03/22/2023, Additional history exists Pneumococcal Vaccine: 50+ Years Completed 11/17/2022 Pneumococcal Vaccine: Pediatrics (0 to 5 Years) and At-Risk Patients (6 to 18 Years and 19+ Years) Aged Out 11/17/2022 No longer eligib le based on patient's age to complete this topic HPV (Gardasil) Vaccine Aged Out No lo nger eligible based on patient's age to complete this topic MENINGOCOCCAL (MENACTRA/MENVEO) Aged Out No longer eligible based on patient's age to complete this topic documented as of this encounter Medical Devices Not on filedocumented as of this encounter Care Teams Clinical Education Academic Coordinator Relationship Specialty Start Date End Date Elliott Figueredo DO [address] [place] [address] [place] [address] PCP - General Family Medicine 09/19/20 documented as of this encounter
--- OUTSIDE RECORDS SUMMARY | 2024-07-27 03:37 | External Medical Summary | Summary of Care ---
Author Name Unknown Organization [facility] Address [address] [place] [address] Phone [phone] Care Team Providers Care Boiler Welder Name Role Phone Rema Mendiola MD Primary Care Pr ovider Reason for Visit * Reason Onset Date Comments Medical Records Request 07/23/2024 [facility] Encounter Details Date Type Department Care Team ([facility] Contact Info) Description 07/23/2024 Telephone Family Medicine [address] [phone] Rema Mendiola MD [address] [place] [phone] Medical Records Request ([facility]) Allergies No known active allergiesdocumented as of this encounter (statuses as of 07/24/2024) Medications Atorvastatin Calcium 80 MG Oral Tablet [...] as of this encounter (statuses as of 07/24/2024) Active Problems Problem Noted Date Diagnosed Date BMI 40.0-44.9, adult 07/18/2024 Type 2 diabetes mellitus wit h diabetic mononeuropathy, without long-term current use of insulin 07/18/2024 Hyperlipidemia with target LDL less than 100 05/2024 B12 deficiency 07/18/2024 HTN, goal below 130/80 07/18/2024 documented as of this encounter (statuses as of 07/24/2024) Immunizations Name Administration Dates Next Due TDAP, [...] on file documented as of this encounter Miscellaneous Notes * Telephone Encounter - Yue Motley OSA - 07/23/2024 3:41 PM EDT Medical records request was completed and faxed to [facility] at [phone], to get medical records from 07/21/24 ER visit sent to Dr. Cali. Copy of request faxed to [facility]. documented in this encounter Plan of Treatment Upcoming Encounters Date Type Department Care Team (Late st Contact Info) Description 07/26/2024 11:30 AM EDT Office Visit General Surgery, [facility] [address] [place] [phone] Gael Seo MD [address] [place] [phone] 08/16/2024 2:10 PM EDT Telemedicine Pharmacy, [address] [place] [address] [place] [address] 10/17/2024 1:00 PM EDT Office Visit Family Medicine [address] [place] [phone] Rema Mendiola MD [address] [place] [address] [place] [phone] Health Maintenance Due Date Last Done Comments [...] filedocumented as of this encounter Care Teams Boiler Welder Relationship Specialty Start Date End Date Rema Mendiola MD [address] [place] [address] [place] [phone] PCP - General Family Medicine 07/18/24 documented as of this encounter
--- OUTSIDE RECORDS SUMMARY | 2024-07-27 03:37 | External Medical Summary | Summary of Care ---
Author Name Unknown Organization [facility] Address [address] [place] [address] Phone [phone] Care Team Providers Care Tents Assembler Name Role Phone Rema Mendiola MD Primary Care Pr ovider Reason for Referral * Evaluate & Treat - Unlimited Visits (Within 30 days (routine)) - Pending Review Specialty Diagnoses / Procedures Referred By Contac t Referred To Contact General Surgery Diagnoses Choledocholithiasis Rema Mendiola MD [address] [place] [address] [place] [phone] Phone: tel: fax: Referral ID Status Reason Start Date Expiration Date Visits Requested Visits Authorized [id number] Pending Review Specialty Services Required 07/23/2024 999 999 Question Answer Referral Priority Within 30 days (routine) Where should this appointment be scheduled? [facility] What condition is the patient being seen for? General Surgery Conditions What condition is the patient being seen for? Gallbladder Comments Seen in [facility], CT and ultrasound showed stones Reason for Visit * Reason Comments Emergency Department Follow-Up Encounter Details Date Type Department Care Team (Late st Contact Info) Description 07/23/2024 3:40 PM EDT Office Visit Family Medicine [address] [place] [phone] Rema Mendiola MD [address] [place] [address] [place] [phone] Choledocholithiasis* Allergies No known active allergiesdocumented as of [...] Sign Reading Time Taken Comments Blood Pressure 124/80 07/23/2024 3:15 PM EDT Pulse 116 07/23/2024 3:15 PM EDT Temperature - - Respiratory Rate - - Oxygen Saturation 97% 07/23/2024 3:15 PM EDT Inhaled Oxygen Concentration - - Weight 103.4 kg (228 lb) 07/23/2024 3:15 PM EDT Height 157.5 cm (5' 2") 07/23/2024 3:15 PM EDT Body Mass Index 41.7 07/23/2024 3:15 PM EDT documented in this encounter Progress Notes * Rema Mendiola MD - 07/23/2024 3:19 PM EDT Images from the original note were not included. History of Present Illness Sweta Scott is a 54 year old female that presents for Emergency Department Follow-Up History of Present Illness Sweta Scott is a 54 year old female who presents with upper back pain and vomiting. She is accompanied by her ehkjcx-ta-dln. She experienced vomiting for twelve hours and upper back pain, which led her to seek care at an urgent care facility. She was then referred to the emergency room, where she spent seven and a half hours undergoing evaluation. During her ER visit, she received a CT scan and an ultrasound, which revealed gallstones. She was administered medication through an IV that alleviated her back pain, and shewas given a pill for her upset stomach. Since her discharge from the ER on Tuesday, she feels extremely tired, sleeping extensively, and taking multiple naps. She was prescribed Naprosyn for her upset stomach, which she attributes to the prolonged vomiting. She has been able to consume water, cereal, and sugar-free Jell-O but has avoided heavier foods. She describes her current pain as intermittent, located in her stomach, and characterizes it as a 'muscle crampy' or 'muscle achy' sensation. The pain is exacerbated by pressure on the side where thegallbladder is located. No issues with bowel movements and no swelling. Physical Exam BP 124/80 | Pulse 116 | Ht 5' 2" (1.575 m) | Wt 228 lb (103.4 kg) | SpO2 97% | BMI 41.70 kg/m² | BSA 2.13 m² Physical Exam Vitals and nursing note reviewed. Constitutional: General: She is not in acute distress. HENT: Head: Normocephalic and atraumatic. Mouth/Throat: Mouth: Mucous membranes are moist. Eyes: Extraocular Movements: Extraocular movements intact. Neck: Thyroid: No thyromegaly. Cardiovascular: Rate and Rhythm: Normal rate and regular rhythm. Pulmonary: Breath sounds: Normal breath sounds. No wheezing or rhonchi. Abdominal: General: Bowel sounds are normal. There is no distension. Palpations: Abdomen is soft. There is no mass. Tenderness: There is abdominal tenderness (mild tenderness to palpation in RUQ). There is no guarding or rebound. Musculoskeletal: General: Normal range of motion. Cervical back: Normal range of motion and neck supple. Right lower leg: No edema. Left lower leg: No edema. Skin: General: Skin is warm and dry. Findings: No lesion or rash. Neurological: General: No focal deficit present. Mental Status: She is alert and oriented to person, place, and time. Psychiatric: Mood and Affect: Mood normal. Behavior: Behavior normal. I have reviewed most recent labs BMP results Recent Labs Units 07/18/24 1124 SODIUM - [facility] mmol/L 140 POTASSIUM - [facility] mmol/L 4.5 CHLORIDE - [facility] mmol/L 104 CO2 - [facility] mmol/L 24 CREATININE - [facility] mg/dL 1.5* BUN - [facility] mg/dL 24* CBC results Recent Labs Units 07/18/24 1124 WBC K/uL 8.75 HGB g/dL 13.0 HCT % 41.3 PLT K/uL 310 Hepatic panel results Recent Labs Units 07/18/24 1124 PROTEIN - [facility] g/dL 6.6 BILIRUBIN, TOTAL - [facility] mg/dL 0.6 ALKALINE PHOSPHATASE - [facility] U/L 84 AST - [facility] U/L 18 ALT - [facility] U/L 17 Assessment and Plan Assessment & Plan Cholelithiasis Imaging confirmed gallstones, likely causing symptoms. Avoid fatty foods until surgery. Surgery decision depends on gallbladder condition and surgeon's assessment, with possible laparoscopic cholecystectomy. Request ER records, including CT scan, ultrasound, and lab results. Refer to general surgery for evaluation and potential cholecystectomy. Ensure ER records are available for surgeon's review. Post-emesis fatigue and abdominal discomfort Fatigue is likely due to physical stress and possible dehydration. Abdominal discomfort is attributed to muscle soreness from vomiting. Encourage hydration and consumption of djkf-kj-dpxomq foods. Choledocholithiasis - SURGERY REFERRAL OP Wrap-Up Follow-up: Return if symptoms worsen or fail to improve. | Check-out note: Please request records from [facility] Time: I spent a total of 10-19 minutes (exact time 15 mins) on the date of service in preparation, delivery, and documentation of the care provided to Sweta Scott excluding any time spent in the performance of separately billed services. Text in this note was generated using an [employer] documentation service. I discussed the use of a device to record and summarize our discussion today. All persons present during the encounter consented to its use. documented in this encounter Nursing Notes * Tasneem Doss CMA - 07/23/2024 3:15 PM EDT ER F/u Was at [facility] after she had nausea/vomiting for 10-12 hours and had really bad upper back pain. Pt was advised that she has gallstones and needs gallbladder removed. Needs referral to general surgeon, pt currently on 4/10 on pain scale documented in this encounter Plan of Treatment Upcoming Encounters Date Type Department Care Team (Late st Contact Info) Description 07/26/2024 11:30 AM EDT Office Visit General Surgery, [facility] [address] [place] [phone] Gael Seo MD [address] [place] [address] 08/16/2024 2:10 PM EDT Telemedicine Pharmacy, [address] [place] [address] [place] [address] 10/17/2024 1:00 PM EDT Office Visit Family Medicine [place] [address] [place] [phone] Rema Mendiola MD [address] [place] [address] [place] [phone] Scheduled Referrals Name Type Priority Associated Diagnoses [...] as of this encounter Visit Diagnoses Diagnosis Choledocholithiasis- Primary Calculus of bile duct without mention of cholecystitis or obstruction documented in this encounter Care Teams Tents Assembler Relationship Specialty Start Date End Date Rema Mendiola MD [address] [place] [address] [place] [phone] PCP - General Family Medicine 07/18/24 documented as of this encounter
--- OUTSIDE RECORDS SUMMARY | 2024-07-27 03:37 | External Medical Summary | Summary of Care ---
Author Name Unknown Organization [facility] Address [address] [place] [address] Phone [phone] Care Team Providers Care Talent Analyst Name Role Phone Saul Mendiola MD Primary Care Pr ovid Reason for Referral * Evaluate & Treat - Unlimited Visits (Within 10 days (routine)) - Pending Review Specialty Diagnoses / Procedures Referred By Contact Referred To Contact GI NUTRITION/IM / Gastroenterology Diagnoses BMI 40.0-44.9, adult (HCC) Saul Mendiola MD [address] [place] [address] [place] [phone] Phone: tel: fax: Referral ID Status Reason Start Date Expiration Date Visits Requested Visits Authorized [id number] Pending Review Specialty Services Required 07/18/2024 999 [...] 10:40 AM EDT Office Visit Family Medicine [address] [place] [phone] Saul Mendiola MD [address] [place] [address] [place] [phone] Type 2 diabetes mellitus with diabetic mononeuropathy, without long-term current use of insulin (HCC)*; Need for nnihggklmp-jwgraxs-fa rtussis (Tdap) vaccine; BMI 40.0-44.9, adult (HCC); Need for hepatitis C screening test; Special screening examination for viral disease; Hyperlipidemia with target LDL less than 100; B12 deficiency; HTN, goal below 130/80; History of CVA (cerebrovascular accident); Elevated serum creatinine Allergies No known active allergiesdocumented as of this encounter (statuses as of 07/23/2024) Medications Atorvastatin Calcium 80 MG Oral Tablet (Lipitor) Take 0.5 Tablets by mouth in the morning. 04/18/19 25 Active Citalopram Hydrobromide 40 MG Oral Tablet (CeleXA) Take 1 Tablet by mouth in the morning. Active Clopidogrel Bisulfate 75 MG Oral Tablet (pLAVix) Take 1 Tablet by mouth in the morning. Active Fluticasone Propionate 50 MCG/ACT Nasal Suspension (Flonase Allergy Relief) FLONASE ALLERGY RELIEF 50 MCG/ACT SUSP 11/18/19 23 Active hydrOXYzine HCl 10 MG Oral Tablet (Atarax) take 1 tablet by mouth once daily as needed for anxiety Active metFORMIN HCl 1000 MG Oral Tablet (Glucophage) 1 Tablet 2 times a day with morning and evening meals. 01/11/20 23 Active Lisinopril 10 MG Oral Tablet (Prinivil) Take 1 Tablet by mouth in the morning. 90 Tablet 3 07/19/19 25 Active Lisinopril 10 MG Oral Tablet (Prinivil) Take 1 Tablet by mouth in the morning. 025 Discontinued(Re fill) Mounjaro 2.5 MG/0.5ML Subcutaneous Solution Auto-injector (Tirzepatide) Inject 2.5 mg under the skin once a week. 2 mL 11 07/19/19 25 025 Discontinued documented as of this encounter (statuses as of 07/23/2024) Active Problems Problem Noted Date Diagnosed Date BMI 40.0-44.9, adult 07/18/2024 Type 2 diabetes mellitus wit h diabetic mononeuropathy, without long-term current use of insulin 07/18/2024 Hyperlipidemia with target LDL less than 100 05/2024 B12 deficiency 07/18/2024 HTN, goal below 130/80 07/18/2024 documented as of this encounter (statuses as of 07/23/2024) Immunizations Name Administration Dates Next Due TDAP, [...] last pap Cologuard ok Stroke, follows with [facility] Physical Exam BP 102/70 | Pulse 80 [...] / CREATININE RATIO, URINE; Future Need for qrhvsynukf-zelpxtm-ddesyoriz (Tdap) vaccine - TDAP (AGE 7 AND [...] note: Please request diabetic eye exam- in [place] by Festus? Time: I spent a total [...] encounter Miscellaneous Notes * Addendum Note - Yocasta Livingston [facility] - 07/23/2024 1:38 PM EDTAddended by: YOCASTA LIVINGSTON on: 07/23/2024 01:38 PM Modules accepted: Orders * Addendum Note - Saul Mendiola MD - 07/20/2024 11:06 AM EDT Addended by: SAUL MENDIOLA on: 07/20/2024 11:06 AM Modules accepted: Orders documented in this encounter Plan of Treatment Upcoming Encounters Date Type Department Care Team (Late st Contact Info) Description 07/26/2024 11:30 AM EDT Office Visit General Surgery, [facility] [address] [phone] Gael Seo MD [address] [address] 08/16/2024 2:10 PM EDT Telemedicine Pharmacy, [address] [place] [address] [place] [address] 10/17/2024 1:00 PM EDT Office Visit Family Medicine [address] [place] [phone] Saul Mendiola MD [address] [place] [address] [place] [phone] Scheduled Orders Name Type Priority Associated Diagnoses [...] 2024 HbA1c 01/17/2025 07/18/2024 Mammogram 03/27/2025 03/27/2024, 12/0 08/2022, 03/22/2023, Additional history exists Albumin/Creatinine Ratio 07/18/2025 07/18/2024 B-12 07/18/2025 07/18/2024 Depression Screening 07/18/2025 07/18/2024 GFR 07/18/2025 07/18/2024, 1008/2022, 11/24/2020, Additional history exists Lipid Panel 07/18/2029 [...] SCREEN W/ CONFIRMATION (07/18/2024 11:24 AM EDT) HIV Antigen & Antibody Negative Negative 07/19/2024 5:22 AM EDT [facility] Comment:Negative HIV-1/2 ant igen and antibody screening [...] LAB BLOOD ORDERA BLES Final Result LABORATORY [facility] [address] [place] [address] * VITAMIN B12 (07/18/2024 11:24 AM EDT) Vitamin B12 434 232 - 1,245 pg/mL 07/19/2024 6:43 AM EDT LABORATORY [facility] Blood Venous blood specimen / Unknown Venipuncture / Unknown 07/18/2024 11:24 AM EDT 07/18/2024 11:24 AM EDT us Saul Wallis MD LAB BLOOD ORDERA BLES Final Result Performing Organization Address City/[facility]/ZIP Co de Phone Number LABORATORY [facility] [address] [place] [address] * ALBUMIN / CREATININE RATIO, URINE (07/18/2024 11:24 AM EDT) Albumin, Random Urine 2.00 mg/dL 07/18/2024 11:24 PM EDT LABORATORY [facility] Creatinine, Random Urine 121 mg/dL 07/18/2024 11:24 PM EDT LABORATORY [facility] Albumin / Creatinine Ratio, Urine 17 <30 mg/g Creat 07/18/2024 11:24 PM EDT LABORATORY [facility] Urine Urine specimen obtained by clean catch procedure / Unknown Non-blood Collection / Unknown 07/18/2024 11:24 AM EDT 07/18/2024 11:24 AM EDT Narrative LABORATORY [facility] - 07/18/2024 11:24 PM EDT Normal: <30 mg/g creatinine High: 30-300 mg/g creatinine Very High: >300 mg/g creatinine Nephrotic: >2200 mg/g creatinine us Saul Wallis MD LAB URINE ORDERA BLES Final Result Performing Organization Address City/[facility]/ZIP Co de Phone Number LABORATORY [facility] [address] [place] [address] * (ABNORMAL) LIPID PANEL WITH DIRECT LDL IF TG IS HIGH (07/18/2024 11:24 AM EDT) Triglycerides 140 <=174 mg/dL 07/19/2024 5:05 AM EDT LABORATORY [facility] Comment: Triglyceride Reference Ranges (mg/dL): <150 Acceptable 150-174 Borderline high 175-499 High >=500 Very high Cholesterol 123 <200 mg/dL 07/19/2024 5:05 AM EDT LABORATORY [facility] Comment: Total Cholesterol Reference Ranges (mg/dL): <200 Desirable 200-239 Borderline high >=240 High HDL Cholesterol 37(L) >49 mg/dL 5:05 AM EDT LABORATORY [facility] Comment: HDL Cholesterol Reference Ranges (mg/dL): >=60 High (Desirable) <50 Low (Undesirable) For Females <40 Low (Undesirable) For Males Non-HDL Cholesterol 86 <=159 mg/dL 07/19/2024 5:05 AM EDT LABORATORY [facility] Comment: Non-HDL Cholesterol Reference Range (mg/dL): <100 Target level for high risk ASCVD patient <130 Optimal for general population 130-159 Near optimal for general population 160-189 Borderline High 190-219 High >=220 Very High LDL Cholesterol 58 <=129 mg/dL 07/19/2024 5:05 AM EDT LABORATORY [facility] Comment: LDL Cholesterol Reference Ranges (mg/dL): <70 [...] LAB BLOOD ORDERA BLES Final Result LABORATORY [facility] [address] [place] [address] * (ABNORMAL) COMPREHENSIVE METABOLIC PANEL (07/18/2024 11:24 AM EDT) BUN 24(H) 6 - 20 mg/dL 07/19/2024 5:05 AM EDT LABORATORY [facility] CREATININE 1.5(H) 0.5 - 1.0 mg/dL 07/19/2024 5:05 AM EDT LABORATORY [facility] EGFR 42(L) >=60 mL/min 07/19/2024 5:05 AM EDT LABORATORY [facility] Comment:eGFR is calculated b ased on the CKD-EPI 2020 equation. SODIUM 140 135 - 146 mmol/L 07/19/2024 5:05 AM EDT [facility] POTASSIUM 4.5 3.5 - 5.1 mmol/L 07/19/2024 5:05 AM EDT [facility] CHLORIDE 104 98 - 107 mmol/L 07/19/2024 5:05 AM EDT [facility] CO2 24 22 - 32 mmol/L 07/19/2024 5:05 AM EDT [facility] ANION GAP 12 7 - 15 mmol/L 07/19/2024 5:05 AM EDT [facility] GLUCOSE 160(H) 70 - 120 mg/dL 07/19/2024 [...] 35 U/L 07/19/2024 5:05 AM EDT LABORATORY [facility] Blood Venous blood specimen / Unknown Venipuncture / Unknown 07/18/2024 11:24 AM EDT 07/18/2024 11:24 AM EDT Saul Wallis MD LAB BLOOD ORDERA BLES Final Result LABORATORY [facility] [address] [facility] [place] [address] * (ABNORMAL) HEMOGLOBIN A1C (07/18/2024 11:24 AM EDT) Hemoglobin A1C 7.1(H) 4.0 - 5.6 % 07/19/2024 4:09 AM EDT [facility] Comment:The use of HbA1c to monitor glycemic status is based on normal hemoglobin and HbA composition. This test should not be used in patients with abnormal hemoglobin that affects the half life of the red blood cell or the in vivo glycation rates. Estimated Average Glucose 157(H) <126 mg/dL 07/19/2024 4:09 AM EDT LABORATORY [facility] Blood Venous blood specimen / Unknown Venipuncture / Unknown 07/18/2024 11:24 AM EDT 07/18/2024 11:24 AM EDT Saul Wallis MD LAB BLOOD ORDERA BLES Final Result LABORATORY [facility] [address] [place] [facility] [place] [address] documented in this encounter Visit Diagnoses Diagnosis Type 2 diabetes mellitus with diabetic mononeuropathy, without long-term current use of insulin (HCC)- Primary Need for josldldqvi-jqphutl-cjhpwzyxt (Tdap) vaccine Need for prophylactic vaccination with combined etqcdcwvvw-sytwewb-obpdadysn (DTP) vaccine BMI 40.0-44.9, adult (HCC) Body [...] blood documented in this encounter Care Teams Talent Analyst Relationship Specialty Start Date End Date Saul Mendiola MD [address] [place] [address] [place] [phone] PCP - General Family Medicine 07/18/24 documented as of this encounter
--- OUTSIDE RECORDS SUMMARY | 2024-07-27 03:37 | External Medical Summary ---
Author Name Unknown Address Unknown Organization [id number]:LABORATORY [place] [address] [facility] [address] Laboratory Report Ordering Provider Test Date Status LORRAINE HUGHES SEIFERT 07/18/2024 11:24:37 Final Verbal consent received from patient for HIV screening. yes Observation Date Value Abnormality Reference (Units ) Status HIV 1+2 Ab+HIV1 p24 Ag [Presence] in Serum or Plasma by Immunoassay 07/18/2024 11:24:37 Negative Negative Final Negative HIV-1/2 antigen and antibody screening tset results usually indicate the absence of HIV-1 and HIV-2 infection. However, such negative results do not rule-out acute HIV infection. If acute HIV-1 infection is highly suspected, it is recommended that a specimen be submitted for detection of HIV-1 RNA. Performing Location [facility] [place] [address] [facility] [address]
--- OUTSIDE RECORDS SUMMARY | 2024-07-27 03:37 | External Medical Summary | Summary of Care ---
Author Name Unknown Organization [facility] Address [address] [place] [address] Phone [phone] Care Team Providers Care Wafer Slicer Name Role Phone Rema Mendiola MD Primary Care Pr ovider Reason for Visit * Reason Comments Outpatient Testing Encounter Details Date Type Department Care Team ([facility] st Contact Info) Description 07/18/2024 11:20 AM EDT Laboratory Laboratory [address] [place] [phone] [facility] [address] [place] [address] Type 2 diabetes mellitus with diabetic mononeuropathy, without long-term current use of insulin (HCC); Hyperlipidemia with target LDL less than 100; B12 deficiency; Need for hepatitis C screening test; Special screening examination for viral disease Allergies No known active allergiesdocumented as of [...] 1:00 PM EDT Office Visit Family Medicine [address] [place] [phone] Rema Mendiola MD [address] [place] [address] [place] [phone] Pending Results Name Type [...] for viral disease 07/18/2024 11:24 AM EDT CBC Lab Routine B12 deficiency 07/18/2024 11:24 AM EDT DIFFERENTIAL, AUTOMATED Lab Routine B12 deficiency 07/18/2024 11:24 AM EDT HEPATITIS C ANTIBODY Lab Routine Need for hepatitis C screening test 07/18/2024 11:24 AM EDT HEPATITIS C RNA QUANTITATION REFLEX COLLECTION Lab Routine Need for hepatitis C screening test 07/18/2024 11:24 AM EDT Health Maintenance Due Date Last [...] 08/06/2022 08/06/2021 COVID-19 Vaccine ( season) 2023 GFR 02/10/2024 02/09/2023, 080 12/2020, 07/21/2020, Additional history exists Cologuard 10/21/2024 10/21/2021, 08/18/2020 Colorectal Cancer Screening 10/21/2024 Influenza Vaccine (FLU shot) (Season Ended) 2024 Mammogram 03/27/2025 03/27/2024, 120 08/2022, 03/22/2023, Additional history exists Depression Screening [...] without long-term current use of insulin (HCC) Hyperlipidemia with target LDL less than 100 Other and unspecified hyperlipidemia B12 deficiency Other B-complex deficiencies Need for hepatitis C screening test Special screening examination for other specified viral diseases Special screening examination for viral disease Special screening examination for unspecified viral disease documented in this encounter Care Teams Wafer Slicer Relationship Specialty Start Date End Date Rema Mendiola MD [address] [place] [address] [place] [phone] PCP - General Family Medicine 07/18/24 documented as of this encounter"
--- OUTSIDE RECORDS SUMMARY | 2024-07-27 03:37 | External Medical Summary | Summary of Care ---
Author Name Unknown Organization [facility] Address [address] [place] [address] Phone [phone] Care Team Providers Care Contractor General Engineering Name Role Phone Rema Mendiola MD Primary Care Pr ovid Reason for Referral * Evaluate & Treat - Unlimited Visits (Within 10 days (routine)) - Pending Review Specialty Diagnoses / Procedures Referred By Contact Referred To Contact GI NUTRITION/IM / Gastroenterology Diagnoses BMI 40.0-44.9, adult (HCC) Rema Mendiola MD [address] [place] [address] [place] [phone] Phone: tel: fax: Referral ID Status Reason Start Date Expiration Date Visits Requested Visits Authorized [id number] Pending Review Specialty Services Required 07/18/2024 999 [...] 10:40 AM EDT Office Visit Family Medicine [address] [place] [phone] Rema Mendiola MD [address] [place] [address] [place] [phone] Type 2 diabetes mellitus with diabetic mononeuropathy, without long-term current use of insulin (HCC)*; Need for dipeaknmsm-dxckgsq-ai rtussis (Tdap) vaccine; BMI 40.0-44.9, adult (HCC); [...] last pap Cologuard ok Stroke, follows with [facility] Physical Exam BP 102/70 | Pulse [...] / CREATININE RATIO, URINE; Future Need for zducyzxpof-adxvslz-qbynurlnx (Tdap) vaccine - TDAP (AGE 7 AND [...] note: Please request diabetic eye exam- in [place] by Festus? Time: I spent a total [...] Description 08/16/2024 2:10 PM EDT Telemedicine Pharmacy, [address] [place] [address] [place] [address] 10/17/2024 1:00 PM EDT Office Visit Family Medicine [address] [place] [phone] Rema Mendiola MD [address] [place] [address] [place] [phone] Pending Results Name Type Priority Associated Diagnoses [...] use of insulin (HCC)- Primary Need for wajiglgbhj-dxqtsag-ksiinmfrx (Tdap) vaccine Need for prophylactic vaccination with combined faxkoenigz-htxhvsf-hafmpgoan (DTP) vaccine BMI 40.0-44.9, adult (HCC) Body [...] deficits documented in this encounter Care Teams Contractor General Engineering Relationship Specialty Start Date End Date Rema Mendiola MD [address] [place] [address] [place] [phone] PCP - General Family Medicine 07/18/24 documented as of this encounter
--- OUTSIDE RECORDS SUMMARY | 2024-07-27 03:37 | External Medical Summary ---
Author Name Unknown Address Unknown Organization K01:LABORATORY [facility] - [address] [place] [address] Laboratory Report Ordering Provider Test Date Status SUSANNE FAUST 07/25/2024 11:39:00 Final Observation Date Value Abnormality Reference (Units ) Status MYCODE SPECIMEN-SST 07/25/2024 11:39:00 Freezing of extracted DNA, whole blood and/or serum. Final Performing Location LABORATORY [facility] - [address] [facility] [address]
--- OUTSIDE RECORDS SUMMARY | 2024-07-27 03:37 | External Medical Summary ---
Author Name Unknown Address Unknown Organization K01:LABORATORY [facility] [place] - [address] [facility] [address] Laboratory Report Ordering Provider Test Date Status SAULLORRAINE LORRAINE 07/18/2024 11:24:37 Final Observation Date Value Abnormality Reference (Units ) Status HbA1C 07/18/2024 11:24:37 7.1 Above high normal 4. 0-5.6 (%) Final The use of HbA1c to monitor glycemic status is based on normal hemoglobin and HbA composition. This test should not be used in patients with abnormal hemoglobin that affects the half life of the red blood cell or the in vivo glycation rates. Glucose, estimated average 07/18/2024 11:24:37 157 Above high normal <126 (mg/dL) Noam finnegan Performing Location LABORATORY [facility] - [facility] [address] [facility] [address]
--- OUTSIDE RECORDS SUMMARY | 2024-07-27 03:37 | External Medical Summary | Summary of Care ---
Author Name Unknown Organization [facility] Address [address] [place] [address] Phone [phone] Care Team Providers Care Ditcher Operator Name Role Phone Rema Mendiola MD Primary Care Pr ovid Reason for Referral * Evaluate & Treat - Unlimited Visits (Within 10 days (routine)) - Pending Review Specialty Diagnoses / Procedures Referred By Contac t Referred To Contact Pharmacist / Pharmacy Diagnoses Type 2 diabetes mellitus with diabetic mononeuropathy, without long-term current use of insulin (HCC) Rema Mendiola MD [address] [place] [address] [place] [address] Phone: tel: fax: Referral ID Status Reason Start Date Expiration Date Visits Requested Visits Authorized [id number] Pending Review Specialty Services Required 07/18/2024 01/14/2025 99 99 Question Answer Referral Priority Within 10 days (routine) Where should this appointment be scheduled? [facility] Referring Provider Role: Primary Care Reason for Referral: DM Target A1c: < 7 Comments Pharmacist Medication Therapy Management: Minimum frequency patient should be seen in person for medication management: as appropriate per clinical condition and patient status By my signature, I understand that my patient Sweta Scott will have her medication therapy managed by the [facility] Medication Therapy [facility] ([facility]) per established policies, procedures, and protocols. I also certify that this referral may serve as an initiation of service for the management of drug therapy in the above noted patient. [facility] providers will be responsible for scheduling patient visits, obtaining appropriate laboratory studies, and adjusting medication management therapy per patient's need, in addition to those roles spelled out in the clinic policy, procedures, and drug management protocols. I understand that the service provided by the [facility] is voluntary and have informed patient that they can refuse the service at their discretion. I am aware that the [facility] Clinic will provide me with a copy of the patient encounter via my [facility]. I authorize the [facility] to carry out these activities on my behalf. I consider this program to be a necessary part of the patient's medical care. Rema Juarez MD Encounter Details Date Type Department Care Team (Late st Contact Info) Description 07/18/2024 Telephone Pharmacy, [address] [address] [facility] [address] [place] [address] [place] [address] Allergies No known active allergiesdocumented as of [...] morning. 90 Tablet 3 07/19/19 25 Active Mounjaro 2.5 MG/0.5ML Subcutaneous Solution Auto-injector [...] encounter Miscellaneous Notes * Telephone Encounter - Yocasta Urrutia RPh - 07/23/2024 1:38 PM EDT Response has not been received regarding GLP1 therapy criteria. Rx cannot be dispensed and is now canceled. Prescriber office to contact the patient. * Telephone Encounter - Yocasta Urrutia RPh - 07/18/2024 3:17 PM EDT ADA referral was placed for clinical nutrition. MTDM referral has not been placed. When prescribing Glucagon-like peptide-1(GLP-1) agents for Type 2 Diabetes, provider will now be asked to answer system required questions. Prescriptions will be routed to a pharmacist verify queue. Pharmacist will review the chart, ensure all criteria are met, and will release the prescription to a retail pharmacy. If system criteria are not met, clinical pharmacist will contact provider. This patient did not meet [facility] system criteria and why the message was sent to you. Please either cancel the rx and inform the patient, or respond to the telephone encounter if the patient actually does meet the criteria and it was missed/not included. Let me know if you have additional questions. * Telephone Encounter - Rema Mendiola MD - 07/18/2024 1:59 PM EDT Already ordered MTM for diabetes * Telephone Encounter - Yocasta Urrutia RPh - 07/18/2024 12:54 PM EDT GLP-1 Best Practice - Type 2 Diabetes: Based on documentation provided, patient does not meet the following clinical criteria for initiation of GLP-1 for Type 2 Diabetes: History of CVA/TIA, BMI of 35 or higher with documented history of at least one of the following conditions: AK, PAD with claudication and ankle-brachial index <0.85, Revascularization; or Documented trial, failure, contraindication, and/or intolerance to SGLT2i Patient has recently started GLP-1 through a non-[facility] program and will need to maintain care and subsequent prescriptions under that program as the patient does not meet clinical criteria for use. If patient meets clinical criteria but supporting documentation was omitted in original request, provide the information and route this telephone encounter to Endocrinology Pharmac[place] p [phone]. Patient actively follows with MTDM: No; If patient does not meet clinical criteria, and you wish for MTDM involvement for medication adjustments per system guidelines, please sign pended referral. If patient does not meet clinical criteria, and you do not want MTDM involvement, please notify thepatient and cancel the prescription. Please note prescription will be cancelled if no response within 5 days and you will be notified tocontact patient. documented in this encounter Plan of Treatment Upcoming Encounters Date Type Department Care Team (Late st Contact Info) Description 07/26/2024 11:30 AM EDT Office Visit General Surgery, [facility] [address] [place] [phone] Gael Seo MD [address] [place] [address] 08/16/2024 2:10 PM EDT Telemedicine Pharmacy, [address] [place] [address] [place] [address] 10/17/2024 1:00 PM EDT Office Visit Family Medicine [address] [place] [phone] Rema Mendiola MD [address] [place] [address] [place] [phone] Scheduled Referrals Name Type Priority Associated Diagnoses Orde r Schedule PHARMACIST MEDS THERAPY MGMT REFERRAL OP Referral Within 10 days (routine) Type 2 diabetes mellitus with diabetic mononeuropathy, without long-term current use of insulin (HCC) Ordered: 07/18/2024 Health Maintenance Due Date [...] long-term current use of insulin (HCC)- Primary documented in this encounter Care Teams Ditcher Operator Relationship Specialty Start Date End Date Rema Mendiola MD [address] [place] [address] [place] [phone] PCP - General Family Medicine 07/18/24 documented as of this encounter
--- OUTSIDE RECORDS SUMMARY | 2024-07-27 03:37 | External Medical Summary ---
Author Name Unknown Address Unknown Organization [id number]:[facility]ORY [facility] [place] [address] [place] [address] Laboratory Report Ordering Provider Test Date Status LORRAINE HUGHES 07/18/2024 11:24:37 Final Observation Date Value Abnormality Reference (Units ) Status Vitamin B12 07/18/2024 11:24:37 [phone] (pg/mL) Final Performing Location [facility] [place] - [address] [place] [address]
--- OUTSIDE RECORDS SUMMARY | 2024-07-27 03:37 | External Medical Summary | Summary of Care ---
Author Name Unknown Organization [facility] Address [address] [place] [address] Phone [phone] Care Team Providers Care Custodial Aide Name Role Phone Rema Mendiola MD Primary Care Pr ovid Reason for Referral * Evaluate & Treat - Unlimited Visits (Within 10 days (routine)) - Pending Review Specialty Diagnoses / Procedures Referred By Contact Referred To Contact GI NUTRITION/IM / Gastroenterology Diagnoses BMI 40.0-44.9, adult (HCC) Rema Mendiola MD [address] [place] [address] [place] [address] Phone: tel: fax: Referral ID Status Reason Start Date Expiration Date Visits Requested Visits Authorized [id number] Pending Review Specialty Services Required 07/18/2024 999 [...] 10:40 AM EDT Office Visit Family Medicine [address] [place] [phone] Rema Mendiola MD [address] [place] [address] [place] [phone] Type 2 diabetes mellitus with diabetic mononeuropathy, without long-term current use of insulin (HCC)*; Need for mbnkjgaziy-gwjjcma-yb rtussis (Tdap) vaccine; BMI 40.0-44.9, adult (HCC); [...] last pap Cologuard ok Stroke, follows with [facility] Physical Exam BP 102/70 | Pulse [...] / CREATININE RATIO, URINE; Future Need for xhdwhisbwy-lsyvpen-towukjvcn (Tdap) vaccine - TDAP (AGE 7 AND [...] note: Please request diabetic eye exam- in [place] by Festus? Time: I spent a total [...] 08/16/2024 2:10 PM EDT Telemedicine Pharmacy, [address] [place] [address] [place] [address] 10/17/2024 1:00 PM EDT Office Visit Family Medicine [address] [place] [phone] Rema Mendiola MD [address] [place] [address] [place] [phone] Pending Results Name Type Priority Associated Diagnoses [...] use of insulin (HCC)- Primary Need for tsgzrcluar-qstqobc-liadeasin (Tdap) vaccine Need for prophylactic vaccination with combined kaqgrafzem-pagwyad-xqrzqvxgp (DTP) vaccine BMI 40.0-44.9, adult (HCC) Body [...] deficits documented in this encounter Care Teams Custodial Aide Relationship Specialty Start Date End Date Rema Mendiola MD [address] [place] [address] [place] [phone] PCP - General Family Medicine 07/18/24 documented as of this encounter
--- OUTSIDE RECORDS SUMMARY | 2024-07-27 03:37 | External Medical Summary | Summary of Care ---
Author Name Unknown Organization [facility] Address [address] [place] [address] Phone [phone] Care Team Providers Care Electroneurodiagnostic Technician Name Role Phone Rema Mendiola MD Primary Care Pr ovider Encounter Details Date Type Department Care Team (Late st Contact Info) Description 07/24/2024 Orders Only PATIENT PORTAL DO NOT DELETE THIS DEPT USED [facility] [address] Allergies No known active allergiesdocumented as of [...] 11:30 AM EDT Office Visit General Surgery, [facility] [address] [place] [phone] Gael Seo MD [address] [place] [address] 08/16/2024 2:10 PM EDT Telemedicine Pharmacy, [address] [place] [address] [place] [address] 10/17/2024 1:00 PM EDT Office Visit Family Medicine [address] [place] [phone] Rema Mendiola MD [address] [place] [address] [place] [phone] Health Maintenance Due Date Last Done Comments Diabetic Foot Exam 1987 Hepatitis B Vaccine (1 of 3 - 19+ 3-dose series) 1988 Pap Smear 1990 Cervical Cancer Screening 1999 HPV/Co-Test 1999 Colonoscopy 2014 Fecal Occult Blood Test 2014 Sigmoidoscopy 2014 Zoster Vaccines (1 of 2) 2019 Diabetic Eye Exam 08/06/2022 08/06/2021 COVID-19 Vaccine ( - season) 2023 Cologuard 10/21/2024 10/21/2021, 08/18/2020 Colorectal [...] filedocumented as of this encounter Care Teams Electroneurodiagnostic Technician Relationship Specialty Start Date End Date Rema Mendiola MD [address] [place] [address] [place] [phone] PCP - General Family Medicine 07/18/24 documented as of this encounter
--- OUTSIDE RECORDS SUMMARY | 2024-07-27 03:37 | External Medical Summary ---
Author Name Unknown Address Unknown Organization K01:LABORATORY [facility] - [address] [facility] [address] Laboratory Report Ordering Provider Test Date Status LORRAINE HUGHES 07/18/2024 11:24:37 Final Observation Date Value Abnormality Reference (Units ) Status SYNC LEUKOCYTES IN BLOOD BY AUTOMATED COUNT 07/18/2024 11:24:37 8.75 4.00-10.80 (K/uL) Final Segs 07/18/2024 11:24:37 63.0 40.0-75.0 (%) Final Lymphs % 07/18/2024 11:24:37 26.1 18.0-42.0 (%) Final Monos 07/18/2024 11:24:37 7.2 1.0-11.0 (%) Final Eosinophils 07/18/2024 11:24:37 2.6 0.0-6.0 (%) Final Basos 07/18/2024 11:24:37 0.6 0.0-2.0 (%) Final Immature Granulocyte, Percent 07/18/2024 11:24:37 0.5 0.0-2.0 (%) Final Absolute Segs 07/18/2024 11:24:37 5.52 1.80-7.70 (K/uL) Final Lymphs, absolute 07/18/2024 11:24:37 2.28 1.00-4.80 (K/ul) Final Monos, Abs 07/18/2024 11:24:37 0.63 0.00-1.10 (K/uL) Final Eos, Abs 07/18/2024 11:24:37 0.23 0.00-0.70 (K/uL) Final Basos, Abs 07/18/2024 11:24:37 0.05 0.00-0.20 (K/uL) Final Immature Granulocytes, Number 07/18/2024 11:24:37 0.04 0.00-0.20 (K/uL) Final Performing Location LABORATORY [facility] [place] - [address] [facility] [address]
--- OUTSIDE RECORDS SUMMARY | 2024-07-27 03:37 | External Medical Summary ---
Author Name Unknown Address Unknown Organization [id number]:LABORATORY [facility] [place] - [address] [place] [address] Laboratory Report Ordering Provider Test Date Status LORRAINE HUGHES SEIFERT 07/18/2024 11:24:37 Final Normal: <30 mg/g creatinine< br/>High: 30-300 mg/g creatinine
Very High: >300 mg/g creatinine
Nephrotic: >2200 mg/g creatinine Observation Date Value Abnormality Reference (Units ) Status Albumin, Urine 07/18/2024 11:24:37 2.00 (mg/dL) Final Creatinine, Urine 07/18/2024 11:24:37 121 (mg/dL) Final Albumin/Creatinine [Mass Ratio] in Urine 07/18/2024 11:24:37 17 <30 (mg/g Creat) Final Performing Location LAB[facility]ATORY [facility] [place] - [facility] [place] [address]
--- OUTSIDE RECORDS SUMMARY | 2024-07-27 03:38 | External Medical Summary | Summary of Care ---
Author Name Unknown Organization [facility] Address [address] [place] [address] Phone [phone] Care Team Providers Care Chiller Operator Name Role Phone Elliott Figueredo DO Primary Care Provider [phone] Encounter Details Date Type Department Care Team (Late Contact Info) Description 02/09/2024 Orders Only Radiology [address] [place] [address] Requisition, External Radiology [address] [place] [address] Other screening mammogram* Social History Tobacco Use Types Packs/Day Years Used Date Smoking Tobacco: Never Assessed Utilities Answer Date Recorded Do you have trouble paying y our heating, water, or electric bill? (Adult - for ages 18 years and over) Not on file 10/04/2023 Is your family able to pay t he heat, water, or electric bill? (Household - for ages 0-17 years) Not on file 10/04/2023 Does your family have access to good internet? (Household - for ages 0-17 years) Not on file 10/04/2023 Social Connections Answer Date Recorded How often do you feel lonely or isolated from those around you? (Adult - for ages 18 years and over) Not on file 10/04/2023 Sex and Gender Information Value Date Recorded Sex Assigned at Not on file Gender Identity Not on file Sexual Orientation Not on file Job Start Date Occupation Industry Not on file Not on file Not on file documented as of this encounter Plan of Treatment Upcoming Encounters Date Type Department Care Team (Late Contact Info) Description 03/27/2024 12:30 PM EST Imaging Radiology [address] [place] [address] Scheduled Orders Name Type Priority Associated Diagnoses Orde r Schedule MAMMOGRAM SCREENING JUSTIN BILATERAL Medical Imaging Routine Other screening mammogram Expected: 02/09/2024, Expires: 03/11/2025 Health Maintenance Due Date Last Done Comments Lipid Panel 1969 Depression Screening 1981 HIV Screening 1984 Hepatitis C Screening 1987 DTap/Tdap Vaccines (1 - Tdap) 1988 Hepatitis B Vaccine (1 of 3 - 19+ 3-dose series) 1988 Pap Smear 1990 Cervical Cancer Screening 1999 HPV/Co-Test 1999 Colonoscopy 2014 Fecal Occult Blood Test 2014 Sigmoidoscopy 2014 Zoster Vaccines (1 of 2) 2019 COVID-19 Vaccine (1 - 2023-2 5 season) 2023 Influenza Vaccine (FLU shot) (#1) 2023 Mammogram 03/22/2024 03/22/2023, 12/23/2021, 10/01/2020 Cologuard 10/21/2024 10/21/2021, 08/18/2020 Colorectal Cancer Screening 10/21/2024 Pneumococcal Vaccine: Pediatrics (0 to 5 Years) and At-Risk Patients (6 to 64 Years) Aged Out 11/17/2022 No longer eligible b ased on patient's age to complete this topic HPV (Gardasil) Vaccine Aged Out No lo nger eligible based on patient's age to complete this topic MENINGOCOCCAL (MENACTRA/MENVEO) Aged Out No longer eligible b ased on patient's age to complete this topic documented as of this encounter Medical Devices Not on filedocumented as of this encounter Visit Diagnoses Diagnosis Other screening mammogram- Primary documented in this encounter Care Teams Chiller Operator Relationship Specialty Start Date End Date Elliott Figueredo DO [address] [place] [address] [place] [address] PCP - General Family Medicine 09/19/20 documented as of this encounter
--- OUTSIDE RECORDS SUMMARY | 2024-07-27 03:38 | External Medical Summary | Summary of Care ---
Author Name Unknown Organization [facility] Address [address] [place] [address] Phone [phone] Care Team Providers Care Edger Feeder Name Role Phone Elliott Figueredo DO Primary Care Provider [phone] Encounter Details Date Type Department Care Team (Late st Contact Info) Description 2024 Population Health External Data Unspecified Department Social [...] filedocumented as of this encounter Care Teams Edger Feeder Relationship Specialty Start Date End Date Elliott Figueredo DO [address] [place] [address] [place] [address] PCP - General Family Medicine 09/19/20 documented as of this encounter
[2024-07-27 07:35] LABS: Hematocrit (blood only) 37.3 % (37.0-47.0); Hemoglobin 12.3 g/dl (12.0-16.0); Mean Corpuscular Hemoglobin 29.9 pg (25.0-34.0); Mean Corpuscular Volume 90.5 fL (80.0-100.0); Mean Platelet Volume 8.9 fL (9.4-12.4); Platelet Count 299 K/uL (130-400); RDW Coefficient of Variation 13.1 % (11.5-14.5); RDW Standard Deviation 43.2 fL (36.4-46.3); Red Blood Count 4.12 M/uL (4.20-5.40); White Blood Count 10.99 K/ul (4.8-10.8)
[2024-07-27 08:24] LABS: Albumin Level 3.4 gm/dl (3.4-5.0); Bilirubin,Total 0.5 mg/dl (0.2-1.0); Calcium 8.7 mg/dl (8.6-10.3); Magnesium 1.7 mg/dl (1.7-2.4); Potassium 3.8 mmol/L (3.5-5.1)
[2024-07-27 08:29] LABS: BUN Creatinine Ratio 11.4 (10-20); Creatinine Clr Calc Pharmacy 53.9 ml/min; Globulin 3.3 gm/dl (2.5-4.0); Total Protein 6.7 gm/dl (6.0-8.3)
[2024-07-27] MEDS: CITALOPRAM 40 MG TAB PO SCH (08:41)
[2024-07-27] MEDS: ATORVASTATIN 40 MG TAB PO SCH (08:42)
[2024-07-27] MEDS: lisinopril 10 MG TAB PO SCH (08:42)
--- NOTE | 2024-07-27 10:53 | Surgery Progress Note ---
Date of Service July 27, 2024 Assessment & Plan (1) Acute calculous cholecystitis: (2) Right upper quadrant abdominal pain: (3) Leukocytosis: Plan: Acute calculous cholecystitis gallstone in neck of gallbladder avss leukocytosis down to 10.99K(12K) CT scan abd/pelvis with no acute findings Holding plavix OR Tuesday for lap antoni okay for full liquids, NPO after midnight Tuesday continue medical management [place] surgery covering weekend Discussed with Dr. Delgado who agrees with above Admission and Anticipated Discharge Date Admission Date: July 26, 2024 Subjective feeling good, pain about 1/10 but still very tender when examined no n,v tolerated clear liquids without pain, n, v just did not like taste hungry no fevers or chills Physical Exam Constitutional: WD/WN, vitals as above + morbidly obese, cooperative and comfortable; no acute distress and not ill appearing Gastrointestinal (Abdomen): Inspection/Auscultation: abdomen normal to inspection; abdomen not distended Percussion/Palpation: + abdomen tender (RUQ), + guarding (voluntary RUQ + Whitfield's sign) and abdomen soft; abdomen not rigid and abdomen not firm Skin: no rashes, warm and dry no jaundice Psychiatric: Orientation: alert and oriented x 3 Results & Data Vital Signs (Past 12 Hours) Vital Signs Temp Pulse Resp BP Pulse Ox O2 Del Method 07/27/24 07:02 36.5 C 53 L 16 122/73 96 Room Air Laboratory Results 07/27/24 07/27/24 07/27/24 Range/Units 11:37 07:27 06:42 WBC 10.99 H (4.8-10.8) K/ul RBC 4.12 L (4.20-5.40) M/uL Hgb 12.3 (12.0-16.0) g/dl Hct 37.3 (37.0-47.0) % MCV 90.5 (80.0-100.0) fL MCH 29.9 (25.0-34.0) pg MCHC 33.0 (32.0-36.0) g/dL RDW Std Deviation 43.2 (36.4-46.3) fL RDW Coeff of Georges 13.1 (11.5-14.5) % Plt Count 299 (130-400) K/uL MPV 8.9 L (9.4-12.4) fL Immature Gran % (Auto) % Neut % (Auto) % Lymph % (Auto) % Kendall % (Auto) % Eos % (Auto) % Baso % (Auto) % Neut # (Auto) (1.40-6.50) K/uL Lymph # (Auto) (1.20-3.40) K/uL Kendall # (Auto) (0.11-0.59) K/uL Eos # (Auto) (0.00-0.50) K/uL Baso # (Auto) (0.00-0.20) K/uL Immature Gran # (Auto) (0.01-0.20) K/uL Sodium 140 (136-145) mmol/L Potassium 3.8 (3.5-5.1) mmol/L Chloride 108 H (98-107) mmol/L Carbon Dioxide 25 (21-32) mmol/L Anion Gap 7 (3-11) BUN 15 (6-23) mg/dl Creatinine 1.32 H (0.6-1.2) mg/dl Est Cr Clr Drug Dosing 53.9 ml/min eGFR 47.68 BUN/Creatinine Ratio 11.4 (10-20) Glucose 126 H (70-99(Fasting)) mg/dl POC Glucose 154 H 128 H (70-99) mg/dl Calcium 8.7 (8.6-10.3) mg/dl Magnesium 1.7 (1.7-2.4) mg/dl Total Bilirubin 0.5 (0.2-1.0) mg/dl AST 12 L (13-39) U/L ALT 5 L (7-52) U/L Alkaline Phosphatase 72 (34-104) U/L Troponin I High Sens (0-14) pg/ml Total Protein 6.7 (6.0-8.3) gm/dl Albumin 3.4 (3.4-5.0) gm/dl Globulin 3.3 (2.5-4.0) gm/dl Albumin/Globulin Ratio 1.0 (0.9-2) Lipase (11-82) U/L HCG, Qual (Negative) Urine Color Urine Appearance (Clear) Urine pH (4.5-7.5) Ur Specific Alma (1.000-1.030) Urine Protein (Negative) Urine Glucose (UA) (Negative) Urine Ketones (Negative) Urine Blood (Negative) Urine Nitrite (Negative) Urine Bilirubin (Negative) Urine Urobilinogen (Negative) Ur Leukocyte Esterase (Negative) Urine WBC (Auto) (0-5) /hpf Urine RBC (Auto) (0-2) /hpf U Hyaline Cast (Auto) (0-2) /lpf U Epithel Cells (Auto) (0-2) /hpf Urine Bacteria (Auto) (None Seen) 07/26/24 07/26/24 07/26/24 Range/Units 21:19 18:49 13:16 WBC 12.43 H (4.8-10.8) K/ul RBC 4.08 L (4.20-5.40) M/uL Hgb 12.2 (12.0-16.0) g/dl Hct 36.7 L (37.0-47.0) % MCV 90.0 (80.0-100.0) fL MCH 29.9 (25.0-34.0) pg MCHC 33.2 (32.0-36.0) g/dL RDW Std Deviation 43.2 (36.4-46.3) fL RDW Coeff of Georges 13.0 (11.5-14.5) % Plt Count 355 (130-400) K/uL MPV 9.1 L (9.4-12.4) fL Immature Gran % (Auto) 0.6 % Neut % (Auto) 70.8 % Lymph % (Auto) 17.6 % Kendall % (Auto) 7.9 % Eos % (Auto) 2.7 % Baso % (Auto) 0.4 % Neut # (Auto) 8.79 H (1.40-6.50) K/uL Lymph # (Auto) 2.19 (1.20-3.40) K/uL Kendall # (Auto) 0.98 H (0.11-0.59) K/uL Eos # (Auto) 0.34 (0.00-0.50) K/uL Baso # (Auto) 0.05 (0.00-0.20) K/uL Immature Gran # (Auto) 0.08 (0.01-0.20) K/uL Sodium 138 (136-145) mmol/L Potassium 4.5 (3.5-5.1) mmol/L Chloride 103 (98-107) mmol/L Carbon Dioxide 24 (21-32) mmol/L Anion Gap 11 (3-11) BUN 20 (6-23) mg/dl Creatinine 1.52 H (0.6-1.2) mg/dl Est Cr Clr Drug Dosing 46.8 ml/min eGFR 40.25 BUN/Creatinine Ratio 13.2 (10-20) Glucose 236 H (70-99(Fasting)) mg/dl POC Glucose 105 H (70-99) mg/dl Calcium 9.2 (8.6-10.3) mg/dl Magnesium (1.7-2.4) mg/dl Total Bilirubin 0.6 (0.2-1.0) mg/dl AST 12 L (13-39) U/L ALT 8 (7-52) U/L Alkaline Phosphatase 78 (34-104) U/L Troponin I High Sens 6.5 (0-14) pg/ml Total Protein 7.4 (6.0-8.3) gm/dl Albumin 3.7 (3.4-5.0) gm/dl Globulin 3.7 (2.5-4.0) gm/dl Albumin/Globulin Ratio 1.0 (0.9-2) Lipase 35 (11-82) U/L HCG, Qual Negative (Negative) Urine Color Yellow Urine Appearance Clear (Clear) Urine pH 7.0 (4.5-7.5) Ur Specific Alma 1.017 (1.000-1.030) Urine Protein Trace H (Negative) Urine Glucose (UA) Negative (Negative) Urine Ketones Negative (Negative) Urine Blood Negative (Negative) Urine Nitrite Negative (Negative) Urine Bilirubin Negative (Negative) Urine Urobilinogen Negative (Negative) Ur Leukocyte Esterase 2+ H (Negative) Urine WBC (Auto) 0-5 (0-5) /hpf Urine RBC (Auto) 0-2 (0-2) /hpf U Hyaline Cast (Auto) 0-2 (0-2) /lpf U Epithel Cells (Auto) 11-20 H (0-2) /hpf Urine Bacteria (Auto) 3+ H (None Seen) (3) Leukocytosis Leukocytosis type: unspecified Qualified Code(s): D72.829 - Elevated white blood cell count, unspecified
--- NOTE | 2024-07-27 10:57 | Hospitalist Progress Note ---
Date of Service July 27, 2024 Assessment & Plan (1) Acute calculous cholecystitis: (2) Diabetes type 2: (3) Abnormal urinalysis: (4) History of CVA (cerebrovascular accident): Plan Sweta Scott is a 54y/o F with PMHx significant for obesity, DM type II, HLD, HTN, history of CVA on Plavix and anxiety who was referred to the ED by Dr. Seo, [facility], after being seen in his office earlier today due to concern for acute cholecystitis given persistent RUQ abdominal pain since this past Tuesday. --Gallbladder US and CTAP consistent with acute cholecystitis with evidence of a gallbladder stone within the gallbladder neck #Acute calculous cholecystitis Plan for Lap antoni on 07/30 due to pt last plavix today on 07/26 continue to hold plavix Continue IV Rocephin, Flagyl Continue clear liquids, will defer to surgery if can advance at all further through weekend NPO for a.m. of 07/30 ordered continue prn pain meds pt encouraged to ambulate halls #T2DM chronic, stable A1C 7.1 07/2024 hold metformin, Novolog SS while inpt #CKD-3 External chart review shows baseline cr 1.5 pt previously a pt of Dr. Will , now recently established with Dr. Cali Had cr of 1.5 back in early 2023 Pt would benefit from outpt nephrology referral in setting of T2DM and HTN hx for close monitoring #Abnormal UA: pt with urgency, but otherwise denies sx, await culture, pt already covered with IV rocephin for GI concerns #Hx of CVA: no residual deficit, had speech issues that resolved, hold plavix perioperatively, continue statin #HTN: chronic, stable, continue lisinopril DVT ppx: D/C SCDS per pt preference, pt was encouraged to ambulate hallways and we could also d/c Heparin PCP: Rema Cali FULL CODE Dispo: admitted to medical, lap antoni scheduled for 07/30 Patient seen in collaboration with Dr. Cain. Please see addendum. I spent a total of 42 minutes coordinating, documenting, and providing care for this patient excluding time spent in the performance of separately billed services or time spent by another provider/QHP. This included personally reviewing all current laboratories and imaging studies, medical reconciliation, outpatient chart review and discussion with specialists. Admission and Anticipated Discharge Date Admission Date: July 26, 2024 Supervising Physician Co-Signing Physician Notes Patient seen and examined at bedside. Patient doing better today, still has quite a bit of pain in RUQ. On exam, RUQ pain noted. Appreciate surgical input. Niko corrales planned for Tuesday, continue clear liquids, fluids, IV abx until source control achieved. I have seen and discussed the case with the collaborating advanced practitioner. I agree with the above H&P. I have reviewed and confirmed the patients medical history, the findings on physical examination, and the patients diagnosis and treatment plan with Selena Lehman PA-C and agree with the information documented. I spent a total of 20 minutes coordinating, documenting, and providing care for this patient excluding time spent in the performance of separately billed services. All of the aforementioned completed outside of collaborating with the assigned advanced practitioner for a full treatment plan. I have reviewed the advanced practitioner's documentation, and I agree with, and take responsibility for the plan of care Subjective Pt seen and examined in 385-2. Follow up acute cholecystitis. She reports frequent urination due to IVF and good oral intake. She continues to have mild pain, but much improved. She is tolerating clears. She denies f/c/s, chest pain, sob, n/v. She is encouraged to ambulate halls. Review of Systems Review of Systems: All systems reviewed & are unremarkable except as noted in HPI & below Physical Exam Physical Exam: Gen: WD/WN, NAD, A&O x3 HEENT: Normocephalic, atraumatic, conjunctivae moist, sclerae anicteric, mucous membranes moist. Lung: Clear to Auscultation bilaterally, no wheezes/rales/rhonchi Heart: Regular rate, regular rhythm, no murmurs, rubs, or gallops Abdomen: Soft, TTP RUQ, no guarding/rigidity, ND +BS x 4 Extremities: No edema Skin: Warm, no rash, negative turgor. Results & Data Results & Data Vital Signs (Past 12 Hours) Vital Signs Temp Pulse Resp BP Pulse Ox O2 Del Method 07/27/24 07:02 36.5 C 53 L 16 122/73 96 Room Air Laboratory Results I have independently reviewed and interpreted patient's cbc, cmp, mag Medications Administered Current Inpatient Medications Atorvastatin Calcium (Atorvastatin 40 Mg Tab) 40 mg PO QAM [facility] Stop: 08/26/24 08:59 Last Admin: 07/27/24 08:42 Dose: 40 mg Citalopram Hydrobromide (Citalopram 40 Mg Tab) 40 mg PO QAM [facility] Stop: 08/26/24 08:59 Last Admin: 07/27/24 08:41 Dose: 40 mg Dextrose (Dextrose 50% 50 Ml Syringe) 25 - 50 ml IV UD PRN; Protocol PRN Reason: Hypoglycemia Protocol Stop: 08/25/24 18:14 Glucagon (Glucagon For Inj 1 Mg Vial) 1 mg SQ UD PRN; Protocol PRN Reason: Hypoglycemia Protocol Stop: 08/25/24 18:14 Glucose (Glucose 40% Gel 15 Gm Tube) 15 - 30 gm PO UD PRN; Protocol PRN Reason: Hypoglycemia Protocol Stop: 08/25/24 18:14 Glucose (Glucose 10 Tab/Tube) 4 - 8 tab PO UD PRN; Protocol PRN Reason: Hypoglycemia Protocol Stop: 08/25/24 18:14 Heparin Sodium (Porcine) (Heparin Sod 5,000 Unit/0.5 Ml Vial) 7,500 units SQ Q12 ABDIAS Stop: 08/25/24 22:34 Last Admin: 07/27/24 08:37 Dose: 7,500 units Hydromorphone HCl (Hydromorphone Inj 1 Mg/Ml Syringe) 0.5 mg IV Q3HWA PRN PRN Reason: Breakthrough Pain Stop: 08/09/24 22:34 Hydroxyzine HCl (Hydroxyzine Hcl 10 Mg Tab) 10 mg PO DAILY PRN PRN Reason: Anxiety Stop: 08/25/24 18:16 Acetaminophen (Ofirmev) 1,000 mg in 100 mls @ 400 mls/hr IV Q8H ABDIAS Stop: 07/29/24 18:59 Last Infusion: 07/27/24 03:24 Dose: Infused Ceftriaxone Sodium (Rocephin) 2,000 mg in 50 mls @ 100 mls/hr IV Q24H [facility] Stop: 08/06/24 17:59 Metronidazole (Flagyl) 500 mg in 100 mls @ 100 mls/hr IV Q8H ABDIAS; Protocol Stop: 08/06/24 00:00 Last Infusion: 07/27/24 09:48 Dose: Infused Insulin Aspart (Insulin Aspart Per Unit Charge) 0 units SC ACHS [facility] Stop: 08/25/24 20:59 Last Admin: 07/27/24 08:39 Dose: 2 units Lisinopril (Lisinopril 10 Mg Tab) 10 mg PO QAM [facility] Stop: 08/26/24 08:59 Last Admin: 07/27/24 08:42 Dose: 10 mg Miscellaneous (Carbohydrates For Hypoglycemia ) 15 - 30 gm PO UD PRN PRN Reason: Hypoglycemia Protocol Stop: 08/25/24 18:14 Miscellaneous Information (Pharmacy Glycemic Mgmt Consult) 1 each N/A UD PRN PRN Reason: Consult Stop: 08/25/24 18:14 Ondansetron HCl (Ondansetron Inj 2 Mg/Ml 2 Ml Vial) 4 mg IV Q6H PRN PRN Reason: Nausea Stop: 08/25/24 22:34 Oxycodone HCl (Oxycodone Hcl Ir 5 Mg Tab (Immediate Release)) 5 mg PO Q3HWA PRN PRN Reason: Severe Pain (Scale 7, 8, 9,10) Stop: 08/10/24 08:24 Polyethylene Glycol (Polyethylene (Miralax) 17 Gm Pack) 17 gm PO DAILY PRN PRN Reason: Constipation Stop: 08/25/24 22:34 (2) Diabetes type 2 Diabetes mellitus complication status: without complication Diabetes mellitus appliance service representative insulin use: without correction use Qualified Code(s): E11.9 - Type 2 diabetes mellitus without complications
--- NOTE | 2024-07-27 13:22 | Pharmacy Report ---
Pharmacy Glycemic Short Note 2 - Date of Service July 27, 2024 - Glycemic Short BSG Results (Last 24 hours): 07/26/24 07/26/24 07/27/24 13:16 21:19 06:42 Glucose 236 H 126 H POC Glucose 105 H 07/27/24 07/27/24 07:27 11:37 Glucose POC Glucose 128 H 154 H OUTPATIENT ANTIDIABETIC REGIMEN: * Metformin 500 mg qAM; A1c 7.1% ASSESSMENT: * Patient admitted with cholecystitis with tentative plans for OR on 07/30. * Patient with decent control outpatient on low dose of metformin. Patient was initiated on weight stress 2 Novolog * Will continue with current regimen. Continue to hold basal for now- fasting 128 mg/dL this morning PLAN FOR INPATIENT GLYCEMIC CONTROL: * Hold outpatient oral diabetes medications * Basal insulin * hold * Bolus insulin * NovoLog per scale ACHS or Q6hrs while NPO * Goal Range: Low 110 mg/dL - High 160 mg/dL * Correction Factor: 25 mg/dL/unit * Nutritional / Prandial insulin per carb ratio of 1 unit per 8 grams CHO consumed
[2024-07-27] MEDS: oxyCODONE HCL IR 5 MG TAB (IMMEDIATE RELEASE) PO PRN (16:05)
[2024-07-27] MEDS: cefTRIAXone SODIUM 2,000 MG/50 ML BAG IV SCH (18:10)
[2024-07-28 06:12] LABS: Hematocrit (blood only) 33.1 % (37.0-47.0); Hemoglobin 11.2 g/dl (12.0-16.0); Mean Corpuscular Hemoglobin 30.2 pg (25.0-34.0); Mean Corpuscular Hgb Conc 33.8 g/dL (32.0-36.0); Mean Corpuscular Volume 89.2 fL (80.0-100.0); Mean Platelet Volume 8.8 fL (9.4-12.4); Platelet Count 285 K/uL (130-400); RDW Coefficient of Variation 12.8 % (11.5-14.5); RDW Standard Deviation 41.7 fL (36.4-46.3); Red Blood Count 3.71 M/uL (4.20-5.40); White Blood Count 9.41 K/ul (4.8-10.8)
[2024-07-28 06:27] LABS: BUN Creatinine Ratio 10.3 (10-20); Calcium 8.6 mg/dl (8.6-10.3); Creatinine Clr Calc Pharmacy 56.4 ml/min
--- NOTE | 2024-07-28 10:15 | Hospitalist Progress Note ---
Date of Service July 28, 2024 Assessment & Plan (1) Acute calculous cholecystitis: (2) Diabetes type 2: (3) Abnormal urinalysis: (4) History of CVA (cerebrovascular accident): Plan Patient is a 54y/o F with PMHx significant for obesity, DM type II, HLD, HTN, history of CVA on Plavix and anxiety who was referred to the ED by Dr. Seo, [facility], after being seen in his office earlier today due to concern for acute cholecystitis given persistent RUQ abdominal pain since this past Tuesday. --Gallbladder US and CTAP consistent with acute cholecystitis with evidence of a gallbladder stone within the gallbladder neck #Acute calculous cholecystitis Plan for Lap antoni on 07/30 due to pt last plavix today on 07/26 continue to hold plavix Continue IV Rocephin, Flagyl Continue clear liquids, will defer to surgery if can advance at all further through weekend NPO for a.m. of 07/30 ordered continue prn pain meds pt encouraged to ambulate halls #T2DM chronic, stable A1C 7.1 07/2024 hold metformin, Novolog SS while inpt #CKD-3 External chart review shows baseline cr 1.5 pt previously a pt of Dr. Will , now recently established with Dr. Cali Had cr of 1.5 back in early 2023 Pt would benefit from outpt nephrology referral in setting of T2DM and HTN hx for close monitoring #Abnormal UA: pt with urgency, but otherwise denies sx, preliminary urine culture reincubating, already covered with IV rocephin as above #Hx of CVA: no residual deficit, had speech issues that resolved, hold plavix perioperatively, continue statin #HTN: chronic, stable, continue lisinopril DVT ppx: SQ for now (future hold), encourage ambulation PCP: Rema Cali FULL CODE Dispo: admitted to [facility] antoni scheduled for 07/30 Patient seen in collaboration with Dr. Cain. Please see addendum. I spent a total of 40 minutes coordinating, documenting, and providing care for this patient excluding time spent in the performance of separately billed services or time spent by another provider/QHP. This included personally reviewing all current laboratories and imaging studies, medical reconciliation, outpatient chart review and discussion with specialists. Admission and Anticipated Discharge Date Admission Date: July 26, 2024 Supervising Physician Co-Signing Physician Notes Patient seen and examined at bedside. Patient doing well today, RUQ pain has diminished substantially. On exam, RUQ pain significantly decreased to palpation. Lap antoni on Tuesday, patient gallbladder cooling off with fluids and abx. Appreciate surgical assistance with case. I have seen and discussed the case with the collaborating advanced practitioner. I agree with the above H&P. I have reviewed and confirmed the patients medical history, the findings on physical examination, and the patients diagnosis and treatment plan with Sumaya Kong PA-C and agree with the information documented. I spent a total of 20 minutes coordinating, documenting, and providing care for this patient excluding time spent in the performance of separately billed services. All of the aforementioned completed outside of collaborating with the assigned advanced practitioner for a full treatment plan. I have reviewed the advanced practitioner's documentation, and I agree with, and take responsibility for the plan of care Subjective Seen and examined in 385-2. NAEO. Feeling well at rest, without pain or nausea. Tolerating liquid diet. No F/C, CP, SOB, dysuria, diarrhea or constipation. Had a small loose bowel movement this AM. Review of Systems Review of Systems: At least ten systems reviewed and negative except as noted in the HPI. Physical Exam Physical Exam: Gen: WD/WN, NAD, resting comfortably in bed, A&Ox3 HEENT: Normocephalic, atraumatic, conjunctivae moist, sclerae anicteric, mucous membranes moist Lung: Clear to Auscultation bilaterally, no wheezes/rales/rhonchi Heart: Regular rate, regular rhythm Abdomen: Soft, RUQ TTP, no distended, +BS x 4 Extremities: no edema Skin: Warm, no rash Results & Data Results & Data Vital Signs (Past 12 Hours) Vital Signs Temp Pulse Resp BP Pulse Ox O2 Del Method 07/28/24 07:24 36.7 C 56 L 18 144/71 H 95 Room Air 07/27/24 23:08 36.5 C 62 18 127/80 98 Room Air Laboratory Results Short CBC 07/28/24 Range/Units 05:58 WBC 9.41 (4.8-10.8) K/ul Hgb 11.2 L (12.0-16.0) g/dl Hct 33.1 L (37.0-47.0) % Plt Count 285 (130-400) K/uL BMP 07/28/24 05:58 Sodium 140 Potassium 4.0 Chloride 107 Carbon Dioxide 27 BUN 13 Creatinine 1.26 H Glucose 119 H Calcium 8.6 Diagnostic Findings Gallbladder Ultrasound 07/26/24 12:56 US gallbladder CLINICAL HISTORY: Abdominal pain. COMPARISON STUDY: No previous studies for comparison. FINDINGS: A 3 cm gallstone within the gallbladder neck is noted. The gallbladder is mildly distended. Sonographic Whitfield sign was reported by the technologist. There is mild gallbladder wall thickening and trace pericholecystic fluid. There is no biliary ductal dilatation. No hepatic lesions are identified. Liver morphology is normal. Pancreatic body is normal. Head and tail are obscured. A 1.1 cm hypoechoic nodule adjacent to the pancreatic head favors a benign lymph node. There is no right hydronephrosis. IMPRESSION: 1. Cholelithiasis with positive sonographic Whitfield sign, mild gallbladder wall thickening and trace pericholecystic fluid. The findings favor acute cholecystitis. A nuclear medicine hepatobiliary scan could be obtained as i ndicated. 2. No biliary ductal dilatation. ACT 112: Negative or not required by law. Electronically signed by: Jeffrey Robles M.D. 07/26/2024 3:00 PM Abdomen/Pelvis CT 07/26/24 18:58 EXAM: CT Abdomen and Pelvis Without Intravenous Contrast INDICATION: Left lower quadrant pain. Query hernia. TECHNIQUE: Axial computed tomography images of the abdomen and pelvis without intravenous contrast. Sagittal and coronal reformatted images were created and reviewed. This CT exam was performed using one or more of the following dose reduction techniques: automated exposure control, adjustment of the mA and/or kV according to patient size, and/or use of iterative reconstruction technique. COMPARISON: No relevant prior studies available. FINDINGS: Limitations: None. Lung bases: No abnormality noted. Pleural space: No visualized pleural effusion or pneumothorax. Heart: No abnormality noted. Mediastinum: No abnormality noted. ABDOMEN: Liver: Lack of intravenous contrast limits detection of some masses. No abnormality noted. Gallbladder and bile ducts: The gallbladder is distended and appears mildly inflamed. There is a 1.9 cm lamellated stone in the neck. No ductal dilatation or calcification. Pancreas: No pancreatic mass, calcification, inflammation or ductal dilation noted. Spleen: No significant abnormality noted. Adrenals: No significant abnormality noted. Kidneys and ureters: Mild bilateral renal cortical scarring noted. No stones or hydronephrosis. Stomach and bowel: Typical amounts of formed stool noted in the colon. No obstruction or inflammation. PELVIS: Appendix: No findings to suggest acute appendicitis. Bladder: Appears normal for the degree of filling. No stones or inflammation. No large mass. Masses may not be detected in the absence of opacification. Reproductive: No abnormalities noted. ABDOMEN and PELVIS: Intraperitoneal space: No free air. No significant fluid collection. Bones/joints: No acute changes. Soft tissues: No significant abnormality noted. Vasculature: No abdominal aortic aneurysm. Lymph nodes: No pathologically enlarged lymph nodes. IMPRESSION: 1.9 cm stone appears to be lodged in the neck of the distended and inflamed gallbladder consistentwith acute cholecystitis. Confirmation with sonography or HIDA scan recommended. ACT 112: N/A Electronically signed by Teena Tripp 07-26-2024 7:34 PM (2) Diabetes type 2 Diabetes mellitus complication status: without complication Diabetes mellitus parts counterman insulin use: without mcfp use Qualified Code(s): E11.9 - Type 2 diabetes mellitus without complications
[2024-07-28] MEDS: LIDOCAINE 5% 1 PATCH TD STA (16:57)
[2024-07-29] MEDS: hydrOXYzine HCl 10 MG TAB PO PRN (00:16)
[2024-07-29 07:44] LABS: Hematocrit (blood only) 33.2 % (37.0-47.0); Hemoglobin 10.8 g/dl (12.0-16.0); Mean Corpuscular Hemoglobin 29.3 pg (25.0-34.0); Mean Corpuscular Hgb Conc 32.5 g/dL (32.0-36.0); Mean Corpuscular Volume 90.2 fL (80.0-100.0); Platelet Count 315 K/uL (130-400); RDW Standard Deviation 42.8 fL (36.4-46.3); Red Blood Count 3.68 M/uL (4.20-5.40)
[2024-07-29 07:56] LABS: BUN Creatinine Ratio 9.6 (10-20); Calcium 8.7 mg/dl (8.6-10.3); Creatinine Clr Calc Pharmacy 52.7 ml/min
--- NOTE | 2024-07-29 10:09 | Surgery Progress Note ---
Date of Service July 29, 2024 Assessment & Plan (1) Acute calculous cholecystitis: Plan: planning for OR with Dr. Delgado tomorrow NPO after MN Pt is on Heparin for DVT ppx, begin hold with tomorrow am dose Admission and Anticipated Discharge Date Admission Date: July 26, 2024 Subjective Pt seen this am OOB in a chair wihtout complaints Physical Exam Constitutional: + obese; not ill appearing, not dishevel ed, not in distress and not diaphoretic Respiratory: normal respiratory effort; no respiratory distress, no labored breathing and does not use accessory muscles Results & Data Vital Signs (Past 12 Hours) Vital Signs Temp Pulse Resp BP Pulse Ox O2 Del Method 07/29/24 07:44 36.8 C 65 18 151/80 H 96 Room Air Laboratory Results see listed labs Results BMP Results: Sodium 139 mmol/L (136-145) 07/29/24 Potassium 4.0 mmol/L (3.5-5.1) 07/29/24 Chloride 106 mmol/L (98-107) 07/29/24 Carbon Dioxide 27 mmol/L (21-32) 07/29/24 Anion Gap 6 (3-11) 07/29/24 BUN 13 mg/dl (6-23) 07/29/24 Creatinine 1.35 mg/dl (0.6-1.2) H 07/29/24 Glucose 112 mg/dl (70-99(Fasting)) H 07/29/24 Results Complete Blood Count Results: RBC 3.68 M/uL (4.20-5.40) L 07/29/24 WBC 8.80 K/ul (4.8-10.8) 07/29/24 Hgb 10.8 g/dl (12.0-16.0) L 07/29/24 Hct 33.2 % (37.0-47.0) L 07/29/24 Plt Count 315 K/uL (130-400) 07/29/24 PG Care Time/CCT Total # of Minutes Spent Total Time Spent with Patient: Total time spent is greater than 50% in coordination of care (as documented) at patient's floor/unit and/or counseling patient: Coding Level of Care Code 53875 SUB INP/OBS CARE 05/12MIN Diagnoses Acute calculous cholecystitis K80.00
--- NOTE | 2024-07-29 10:40 | Hospitalist Progress Note ---
Date of Service July 29, 2024 Assessment & Plan (1) Acute calculous cholecystitis: (2) Diabetes type 2: (3) Abnormal urinalysis: (4) History of CVA (cerebrovascular accident): Plan Patient is a 54y/o F with PMHx significant for obesity, DM type II, HLD, HTN, history of CVA on Plavix and anxiety who was referred to the ED by Dr. Seo, [facility], after being seen in his office earlier today due to concern for acute cholecystitis given persistent RUQ abdominal pain since this past Tuesday. --Gallbladder US and CTAP consistent with acute cholecystitis with evidence of a gallbladder stone within the gallbladder neck #Acute calculous cholecystitis Plan for Lap antoni on 07/30 due to pt last plavix today on 07/26 Continue to hold plavix Continue IV Rocephin, Flagyl Continue clear liquids today, NPO at midnight for planned OR tomorrow Continue prn pain meds Encouraged to ambulate halls #T2DM Chronic, stable A1C 7.1 07/2024 Hold metformin, Novolog SS while inpt #CKD-3 External chart review shows baseline cr 1.5 pt previously a pt of Dr. Will , now recently established with Dr. Cali Had cr of 1.5 back in early 2023 Pt would benefit from outpt nephrology referral in setting of T2DM and HTN hx for close monitoring #Abnormal UA: pt with urgency, but otherwise denies sx, preliminary urine culture reincubating, already covered with IV rocephin as above #Hx of CVA: no residual deficit, had speech issues that resolved, hold plavix perioperatively, continue statin #HTN: chronic, stable, continue lisinopril DVT ppx: holding SQ heparin for OR tomorrow , SCDs added, encourage ambulation PCP: Rema Cali FULL CODE Dispo: admitted to [facility], lap antoni scheduled for 07/30 Patient seen in collaboration with Dr. Cain. Please see addendum. I spent a total of 40 minutes coordinating, documenting, and providing care for this patient excluding time spent in the performance of separately billed services or time spent by another provider/QHP. This included personally review ing all current laboratories and imaging studies, medical reconciliation, outpatient chart review and discussion with specialists. Admission and Anticipated Discharge Date Admission Date: July 26, 2024 Supervising Physician Co-Signing Physician Notes Patient seen and examined at bedside. Doing well today, feels RUQ pain has improved significantly. Awaiting lap antoni tomorrow, appreciate surgery assistance with case. NPO after midnight for procedure. I have seen and discussed the case with the collaborating advanced practitioner. I agree with the above H&P. I have reviewed and confirmed the patients medical history, the findings on physical examination, and the patients diagnosis and treatment plan with Sumaya Kong PA-C and agree with the information documented. I spent a total of 20 minutes coordinating, documenting, and providing care for this patient excluding time spent in the performance of separately billed services. All of the aforementioned completed outside of collaborating with the assigned advanced practitioner for a full treatment plan. I have reviewed the advanced practitioner's documentation, and I agree with, and take responsibility for the plan of care Subjective Seen and examined in 385-2. NAEO. Feeling well at rest, without pain or nausea. Tolerating liquid diet. Anxiously awaiting surgery. No F/C, CP, SOB, dysuria, diarrhea or constipation. RUQ pain has improved since yesterday. Review of Systems Review of Systems: At least ten systems reviewed and negative except as noted in the HPI. Physical Exam Physical Exam: Gen: WD/WN, NAD, resting comfortably in bedside chair, A&Ox3 HEENT: Normocephalic, atraumatic, conjunctivae moist, sclerae anicteric, mucous membranes moist Lung: Clear to Auscultation bilaterally, no wheezes/rales/rhonchi Heart: Regular rate, regular rhythm Abdomen: Soft, mild RUQ TTP, ND, +BS x 4 Extremities: no edema Skin: Warm, no rash Results & Data Results & Data Vital Signs (Past 12 Hours) Vital Signs Temp Pulse Resp BP Pulse Ox O2 Del Method 07/29/24 07:44 36.8 C 65 18 151/80 H 96 Room Air Laboratory Results Short CBC 07/29/24 Range/Units 06:50 WBC 8.80 (4.8-10.8) K/ul Hgb 10.8 L (12.0-16.0) g/dl Hct 33.2 L (37.0-47.0) % Plt Count 315 (130-400) K/uL BMP 07/29/24 06:50 Sodium 139 Potassium 4.0 Chloride 106 Carbon Dioxide 27 BUN 13 Creatinine 1.35 H Glucose 112 H Calcium 8.7 Diagnostic Findings Gallbladder Ultrasound 07/26/24 12:56 US gallbladder CLINICAL HISTORY: Abdominal pain. COMPARISON STUDY: No previous studies for comparison. FINDINGS: A 3 cm gallstone within the gallbladder neck is noted. The gallbladder is mildly distended. Sonographic Whitfield sign was reported by the technologist. There is mild gallbladder wall thickening and trace pericholecystic fluid. There is no biliary ductal dilatation. No hepatic lesions are identified. Liver morphology is normal. Pancreatic body is normal. Head and tail are obscured. A 1.1 cm hypoechoic nodule adjacent to the pancreatic head favors a benign lymph node. There is no right hydronephrosis. IMPRESSION: 1. Cholelithiasis with positive sonographic Whitfield sign, mild gallbladder wall thickening and trace pericholecystic fluid. The findings favor acute cholecystitis. A nuclear medicine hepatobiliary scan could be obtained as indicated. 2. No biliary ductal dilatation. ACT 112: Negative or not required by law. Electronically signed by: Jeffrey Robles M.D. 07/26/2024 3:00 PM Abdomen/Pelvis CT 07/26/24 18:58 EXAM: CT Abdomen and Pelvis Without Intravenous Contrast INDICATION: Left lower quadrant pain. Query hernia. TECHNIQUE: Axial computed tomography images of the abdomen and pelvis without intravenous contrast. Sagittal and coronal reformatted images were created and reviewed. This CT exam was performed using one or more of the following dose reduction techniques: automated exposure control, adjustment of the mA and/or kV according to patient size, and/or use of iterative reconstruction technique. COMPARISON: No relevant prior studies available. FINDINGS: Limitations: None. Lung bases: No abnormality noted. Pleural space: No visualized pleural effusion or pneumothorax. Heart: No abnormality noted. Mediastinum: No abnormality noted. ABDOMEN: Liver: Lack of intravenous contrast limits detection of some masses. No abnormality noted. Gallbladder and bile ducts: The gallbladder is distended and appears mildly inflamed. There is a 1.9 cm lamellated stone in the neck. No ductal dilatation or calcification. Pancreas: No pancreatic mass, calcification, inflammation or ductal dilation noted. Spleen: No significant abnormality noted. Adrenals: No significant abnormality noted. Kidneys and ureters: Mild bilateral renal cortical scarring noted. No stones or hydronephrosis. Stomach and bowel: Typical amounts of formed stool noted in the colon. No obstruction or inflammation. PELVIS: Appendix: No findings to suggest acute appendicitis. Bladder: Appears normal for the degree of filling. No stones or inflammation. No large mass. Masses may not be detected in the absence of opacification. Reproductive: No abnormalities noted. ABDOMEN and PELVIS: Intraperitoneal space: No free air. No significant fluid collection. Bones/joints: No acute changes. Soft tissues: No significant abnormality noted. Vasculature: No abdominal aortic aneurysm. Lymph nodes: No pathologically enlarged lymph nodes. IMPRESSION: 1.9 cm stone appears to be lodged in the neck of the distended and inflamed gallbladder consistentwith acute cholecystitis. Confirmation with sonography or HIDA scan recommended. ACT 112: N/A Electronically signed by Teena Tripp 07-26-2024 7:34 PM (2) Diabetes type 2 Diabetes mellitus complication status: without complication Diabetes mellitus [facility] insulin use: without tank terminal gauger use Qualified Code(s): E11.9 - Type 2 diabetes mellitus without complications
[2024-07-30] MEDS: LIDOCAINE 5% 1 PATCH TD STA (02:09)
[2024-07-30 07:56] LABS: Hematocrit (blood only) 33.7 % (37.0-47.0); Hemoglobin 11.2 g/dl (12.0-16.0); Mean Corpuscular Hemoglobin 29.7 pg (25.0-34.0); Mean Corpuscular Hgb Conc 33.2 g/dL (32.0-36.0); Mean Corpuscular Volume 89.4 fL (80.0-100.0); Mean Platelet Volume 8.6 fL (9.4-12.4); Platelet Count 355 K/uL (130-400); RDW Coefficient of Variation 12.9 % (11.5-14.5); RDW Standard Deviation 42.6 fL (36.4-46.3); Red Blood Count 3.77 M/uL (4.20-5.40); White Blood Count 7.79 K/ul (4.8-10.8)
[2024-07-30 08:09] LABS: Albumin Level 3.2 gm/dl (3.4-5.0); BUN Creatinine Ratio 9.5 (10-20); Bilirubin,Total 0.4 mg/dl (0.2-1.0); Calcium 8.8 mg/dl (8.6-10.3); Creatinine Clr Calc Pharmacy 51.9 ml/min; Globulin 3.3 gm/dl (2.5-4.0); Potassium 4.3 mmol/L (3.5-5.1); Total Protein 6.5 gm/dl (6.0-8.3)
--- NOTE | 2024-07-30 10:04 | History & Physical Bridge Note ---
Date of Service July 30, 2024 History & Physical Bridge Note I have examined the patient, reviewed the History & Physical and in the interval since the performance of the History & Physical I have noted the following changes of clinical significance: no changes noted
--- NOTE | 2024-07-30 10:14 | Pharmacy Report ---
Pharmacy Glycemic Short Note 2 - Date of Service July 30, 2024 - Glycemic Short BSG Results (Last 24 hours): 07/29/24 07/29/24 07/29/24 11:32 16:42 20:42 Glucose POC Glucose 129 H 108 H 121 H 07/30/24 07/30/24 07:20 07:35 Glucose 125 H POC Glucose 121 H OUTPATIENT ANTIDIABETIC REGIMEN: * Metformin 500 mg qAM; A1c 7.1% ASSESSMENT: 07/30 * Patient's blood sugars at goal, NPO today for lap antoni. * No changes needed in insulin regimen at this time. 07/27 * Patient admitted with cholecystitis with tentative plans for OR on 07/30. * Patient with decent control outpatient on low dose of metformin. Patient was initiated on weight stress 2 Novolog * Will continue with current regimen. Continue to hold basal for now- fasting 128 mg/dL this morning PLAN FOR INPATIENT GLYCEMIC CONTROL: * Hold outpatient oral diabetes medications * Basal insulin * hold * Bolus insulin * NovoLog per scale ACHS or Q6hrs while NPO * Goal Range: Low 110 mg/dL - High 160 mg/dL * Correction Factor: 30 mg/dL/unit * Nutritional / Prandial insulin per carb ratio of 1 unit per 9 grams CHO consumed
[2024-07-30] MEDS ORDERED: ePHEDrine sulfate 50 MG/ML AMP IV PRN (11:12)
[2024-07-30] MEDS ORDERED: HYDROmorphone INJ 2 MG/ML SYR/VIAL IV PRN (11:12)
[2024-07-30] MEDS ORDERED: ATROPINE SULFATE 0.1 MG/ML 10ML SYR IV PRN (11:12)
[2024-07-30] MEDS ORDERED: ONDANSETRON INJ 2 MG/ML 2 ML VIAL IV PRN (11:12)
[2024-07-30] MEDS ORDERED: PROMETHAZINE HCL 6.25 MG in SODIUM CHLORIDE 0.9% 50 ML IV PRN (11:12)
--- NOTE | 2024-07-30 11:12 | Anesthesiology Consultation ---
Date of Service July 30, 2024 Assessment & Plan Chart Review Chart Review: Acceptable Risk for Surgery and Patient NOT seen in Pre Admission Testing History Surgery Operation Date: 07/30/24 12:05 Proposed Procedures p Laparoscopic Cholecystectomy, No Cholangiogram - Rafi Delgado MD Height/Weight Height: 5 ft 2 in Weight: 102 kg Allergies Allergy/AdvReac Type Severity Reaction Status Date / Time No Known Allergies Allergy Unverified 07/26/24 15:55 Medications Home Medications Medication Instructions Recorded Confirmed Last Taken atorvastatin 80 mg tablet 40 mg PO QAM 07/26/24 07/26/24 07/26/24 citalopram 40 mg tablet 40 mg PO QAM 07/26/24 07/26/24 07/26/24 clopidogrel 75 mg tablet 75 mg PO QAM 07/26/24 07/26/24 07/26/24 hydroxyzine HCl 10 mg tablet 10 mg PO DAILY PRN Anxiety 07/26/24 07/26/24 Unknown lisinopril 10 mg tablet 10 mg PO QAM 07/26/24 07/26/24 07/26/24 metformin 500 mg tablet 500 mg PO QAM 07/26/24 07/26/24 07/26/24 Active Medications Generic Name Dose Route Start Last Admin Trade Name Freq PRN Reason Stop Dose Admin Atorvastatin Calcium 40 mg 07/27/24 09:00 07/30/24 08:54 Atorvastatin 40 Mg Tab PO 08/26/24 08:59 40 mg QAM ABDIAS Administration Citalopram Hydrobromide 40 mg 07/27/24 09:00 07/30/24 08:54 Citalopram 40 Mg Tab PO 08/26/24 08:59 40 mg QAM ABDIAS Administration Heparin Sodium (Porcine) 7,500 units 07/26/24 22:35 07/28/24 20:33 Heparin Sod 5,000 Unit/0.5 Ml Vial SQ 08/25/24 22:34 7,500 units Q12 ABDIAS Administration Hydroxyzine HCl 10 mg 07/26/24 18:17 07/29/24 00:16 Hydroxyzine Hcl 10 Mg Tab PO 08/25/24 18:16 10 mg DAILY PRN Administration Anxiety Ceftriaxone Sodium 2,000 mg in 50 mls @ 100 mls/hr 07/27/24 18:00 07/29/24 18:35 Rocephin IV 08/06/24 17:59 Infused Q24H [facility] Infusion Metronidazole 500 mg in 100 mls @ 100 mls/hr 07/27/24 00:00 07/30/24 10:03 Flagyl IV 08/06/24 00:00 Infused Q8H ABDIAS Infusion Protocol Insulin Aspart 0 units 07/26/24 21:00 07/30/24 09:03 Insulin Aspart Per Unit Charge SC 08/25/24 20:59 Not Given ACHS ABDIAS Lisinopril 10 mg 07/27/24 09:00 07/30/24 08:54 Lisinopril 10 Mg Tab PO 08/26/24 08:59 10 mg QAM ABDIAS Administration Miscellaneous 1 each 07/28/24 21:00 07/29/24 20:07 Remove Lidoderm Patch N/A 08/27/24 20:59 Not Given DAILY@2100 ABDIAS Oxycodone HCl 5 mg 07/27/24 08:25 07/27/24 16:05 Oxycodone Hcl Ir 5 Mg Tab (Immediate Release) PO 08/10/24 08:24 5 mg Q3HWA PRN Administration Severe Pain (Scale 7, 8, 9,10) Past Medical History Medical History Morbid obesity Diabetes type 2 Stroke Hyperlipidemia HTN (hypertension) Past Surgical History Surgical History Tubal ligation evaluation Social History Smoking Status: Never smoker Hx Alcohol Use: No Hx Substance Use: No Physical Exam Vital Signs Last Vital Signs Temp 36.6 C 07/30/24 07:14 Pulse 70 07/30/24 07:14 Resp 16 07/30/24 07:14 BP 150/82 H 07/30/24 07:14 Pulse Ox 98 07/30/24 07:14 O2 Del Method Room Air 07/30/24 09:31 Testing Laboratory Results 07/30/24 07:35 07/30/24 07:35 Urine Color Yellow 07/26/24 18:49 Urine Appearance Clear (Clear) 07/26/24 18:49 Urine pH 7.0 (4.5-7.5) 07/26/24 18:49 Ur Specific [place] 1.017 (1.000-1.030) 07/26/24 18:49 Urine Protein Trace (Negative) H 07/26/24 18:49 Urine Glucose (UA) Negative (Negative) 07/26/24 18:49 Urine Ketones Negative (Negative) 07/26/24 18:49 Urine Nitrite Negative (Negative) 07/26/24 18:49 Ur Leukocyte Esterase 2+ (Negative) H 07/26/24 18:49 Urine WBC (Auto) 0-5 /hpf (0-5) 07/26/24 18:49 Urine RBC (Auto) 0-2 /hpf (0-2) 07/26/24 18:49 U Hyaline Cast (Auto) 0-2 /lpf (0-2) 07/26/24 18:49 U Epithel Cells (Auto) 11-20 /hpf (0-2) H 07/26/24 18:49 Urine Bacteria (Auto) 3+ (None Seen) H 07/26/24 18:49 07/26/24 18:49 Urine Culture - Final Urine,Clean Catch Gardnerella-like bacilli 07/30/24 07:20 POC Glucose 121 H
[2024-07-30] MEDS ORDERED: LIDOCAINE 2% 2 ML VIAL/AMP(20MG/ML) INFIL ONE ×2 (11:45→13:10)
[2024-07-30] MEDS ORDERED: PROPOFOL IV EMULSION 10 MG/ML 20 ML VIAL IV ONE (11:45)
[2024-07-30] MEDS ORDERED: MIDAZOLAM HCL 1 MG/ML 2ML VIAL ONE (11:46)
[2024-07-30] MEDS ORDERED: fentaNYL citrate PF 100 MCG/2 ML VIAL ONE ×2 (11:47→12:28)
[2024-07-30] MEDS ORDERED: ROCURONIUM BROMIDE 10 MG/ML 5 ML VIAL IV ONE (11:50)
[2024-07-30] MEDS ORDERED: ceFAZolin 330 MG/ML 1 GM VIAL ONE (12:19)
[2024-07-30] MEDS ORDERED: DEXAMETHASONE SOD INJ 4 MG/ML VIAL ONE (12:22)
[2024-07-30] MEDS ORDERED: GLYCOPYRROLATE 0.2 MG/ML VIAL ONE (12:43)
[2024-07-30] MEDS ORDERED: NEOSTIGMINE METHYLSULFATE 1 MG/ML 10ML VIAL ONE (12:43)
[2024-07-30] MEDS ORDERED: ONDANSETRON INJ 2 MG/ML 2 ML VIAL ONE (12:44)
[2024-07-30] MEDS: FLOSEAL HEMOSTATIC MATRIX 10ML TOP ONE (13:09)
[2024-07-30] MEDS: BUPIVACAINE/EPINEPHRINE 0.5% MPF 1:200,000 30 ML VIAL ONE (13:14)
--- NOTE | 2024-07-30 13:26 | Operative Report ---
Post Operative Report Pre & Post Diagnosis Operation Date: 07/30/24 12:05 Acute cholecystitis I identified the patient and participated in the time-out.: Yes Procedure Operation Date: 07/30/24 12:05 Laparoscopic cholecystectomy Surgeon Rafi Delgado MD Project Estimator None Estimated Blood Loss 75 Findings Consistent with Post-Op Diagnosis Specimens Gallbladder pathology Drains None Anesthesia Type General Complications none Disposition Accompanied Patient To Recovery: No Disposition: Recovery Room Indications This is a 54-year-old morbidly obese female who came with acute cholecystitis. She is on Plavix. This was held for 3 days and she was maintained on IV fluids IV antibiotics. She presents today for laparoscopic ostectomy went over all the risks in detail. She understands all this and wished to proceed. Description of Procedure The patient was taken the OR, placed in the supine position and underwent excellent general endotracheal anesthesia. Their abdomen is prepped and draped normal sterile fashion. A transverse supraumbilical incision was made and dissection was taken down to identify the anterior fascia. Two Vicryl sutures were placed on either side of the midline and his midline was then incised. The peritoneal cavity was entered bluntly with Mary Jane clamp. A 12mm Hendrickson trocar was then inserted and secured. Good pneumoperitoneum was achieved to 15 mmHg pressure. The patient was placed in head up and rolled to the left position. A 11mm subxiphoid and two 5mm lateral ports were placed in the normal fashion. The gallbladder was identified and was acutely inflamed, adhesions to the acutely inflamed gallbladder were taken down. An aspirator was then used to aspirate the gallbladder. This then facilitated grasping the the fundus of the gallbladder which was retracted superiorly. The neck of the gallbladder was grasped and then retracted laterally. This splayed open the Hepatocystic triangle. Attention was then turned to taking down the peritoneal attachments and identify the cystic duct and cystic artery. Once these were skeletonized and a medial and lateral window was created between the gallbladder fossa and the duct, thereby ensuring the critical view. Then three clips were then placed distally on cystic duct one proximally on the cystic duct, it was then transected. Two clips were then placed approximately on the cystic artery one distally, the cystic artery was transected. An electrocautery hook was then used to move the gallbladder off the gallbladder fossa. There was some bile spillage but no stones were spilled. The gallbladder was then placed into an Endobag and brought out through the supraumbilical incision. The pneumoperitoneum was re-established and abdomen was irrigated out until the suction fluid was clear. There were some areas on the gallbladder fossa which were raw which were cauterized and then a Surgicel and Nawaf seal were used to cover the gallbladder fossa. The ports were then removed and the abdomen decompressed. The fascia of the supraumbilical incision was closed with Vicryls. 0.5% Marcaine with epinephrine local was to create a local field block. Interrupted Vicryl was used to close the skin. Dermabond was used to reinforce the incisions. Sterile dressings were applied. Patient tolerated the procedure without complication and sent to the postop recovery period of observation. They will then be sent to the floor for the rest of their care. I attest to the content of the Intraoperative Record and any orders documented therein. Any exceptions are noted below.
[2024-07-30] MEDS: fentaNYL citrate PF 100 MCG/2 ML VIAL IV PRN (13:53)
--- NOTE | 2024-07-30 14:02 | Hospitalist Progress Note ---
Date of Service July 30, 2024 Assessment & Plan (1) Acute calculous cholecystitis: (2) Diabetes type 2: (3) Abnormal urinalysis: (4) History of CVA (cerebrovascular accident): Plan Patient is a 54y/o F with PMHx significant for obesity, DM type II, HLD, HTN, history of CVA on Plavix and anxiety who was referred to the ED by Dr. Seo, [facility], after being seen in his office earlier today due to concern for acute cholecystitis given persistent RUQ abdominal pain since this past Tuesday. --Gallbladder US and CTAP consistent with acute cholecystitis with evidence of a gallbladder stone within the gallbladder neck #Acute calculous cholecystitis Plan for Lap antoni today, last dose of plavix was 07/26 Continue to hold plavix Continue IV Rocephin, Flagyl NPO Continue prn pain meds Encouraged to ambulate halls #T2DM Chronic, stable A1C 7.1 07/2024 Hold metformin, Novolog SS while inpt #CKD-3 External chart review shows baseline cr 1.5 pt previously a pt of Dr. Will , now recently established with Dr. Cali Had cr of 1.5 back in early 2023 Pt would benefit from outpt nephrology referral in setting of T2DM and HTN hx for close monitoring #Abnormal UA: urine growing Gardnerella, pt on IV Flagyl #Hx of CVA: no residual deficit, had speech issues that resolved, hold plavix perioperatively, continue statin, will resume plavix when surgery approves #HTN: chronic, stable, continue lisinopril DVT ppx: continue to hold SQ Heparin, will resume 07/31 if pt is not going to be d/c PCP: Rema Cali FULL CODE Dispo: anticipate D/C home tomorrow a.m. if pt has unremarkable post op course Patient seen in collaboration with Dr. Cain. Please see addendum. I spent a total of 38 minutes coordinating, documenting, and providing care for this patient excluding time spent in the performance of separately billed services or time spent by another provider/QHP. This included personally reviewing all current laboratories and imaging studies, medical reconciliation, outpatient chart review and discussion with specialists. Admission and Anticipated Discharge Date Admission Date: July 26, 2024 Supervising Physician Co-Signing Physician Notes Patient went to OR today with notable post operative pain. Will monitor Hgb, creatinine and for post operative complications. Will advanced diet as tolerated, monitor for bowel movement as well. Could be stable for discharge home tomorrow pending hemodynamics, labs and clinical picture. I have seen and discussed the case with the collaborating advanced practitioner. I agree with the above H&P. I have reviewed and confirmed the patients medical history, the findings on physical examination, and the patients diagnosis and treatment plan with Selena Lehman PA-C and agree with the information documented. I spent a total of 20 minutes coordinating, documenting, and providing care for this patient excluding time spent in the performance of separately billed services. All of the aforementioned completed outside of collaborating with the assigned advanced practitioner for a full treatment plan. I have reviewed the advanced practitioner's documentation, and I agree with, and take responsibility for the plan of care Subjective Pt seen and examined in room 385-2. F/U Acute cholecystitis. She is NPO for procedure today. Denies pain. Tolerated diet over the weekend. Denies f/c/s, chest pain, ,sob, n/v. She is ambulating, moving bowels and urinating w/o difficulty. Review of Systems Review of Systems: All systems reviewed & are unremarkable except as noted in HPI & below Physical Exam Physical Exam: Gen: WD/WN, NAD, A&O x3 HEENT: Normocephalic, atraumatic, conjunctivae moist, sclerae anicteric, mucous membranes moist. Lung: Clear to Auscultation bilaterally, no wheezes/rales/rhonchi Heart: Regular rate, regular rhythm, no murmurs, rubs, or gallops Abdomen: Soft,NT, no guarding/rigidity, ND +BS x 4 Extremities: No edema Skin: Warm, no rash, negative turgor. Results & Data Results & Data Vital Signs (Past 12 Hours) Vital Signs Temp Pulse Resp BP BP Pulse Ox O2 Del Method 07/30/24 11:22 36.5 C 68 20 139/98 95 Room Air 07/30/24 09:31 Room Air 07/30/24 07:14 36.6 C 70 16 150/82 H 98 Room Air Laboratory Results I have independently reviewed and interpreted patient's admitting labs including CBC, CMP Medications Administered Current Inpatient Medications Atorvastatin Calcium (Atorvastatin 40 Mg Tab) 40 mg PO QAM ABDIAS Stop: 08/26/24 08:59 Last Admin: 07/30/24 08:54 Dose: 40 mg Atropine Sulfate (Atropine Sulfate 0.1 Mg/Ml 10ml Syr) 0.5 mg IV Q1M PRN PRN Reason: PACU Use-HR<40 &/or Bradycardi Stop: 07/30/24 19:12 Citalopram Hydrobromide (Citalopram 40 Mg Tab) 40 mg PO QAM ABDIAS Stop: 08/26/24 08:59 Last Admin: 07/30/24 08:54 Dose: 40 mg Dextrose (Dextrose 50% 50 Ml Syringe) 25 - 50 ml IV UD PRN; Protocol PRN Reason: Hypoglycemia Protocol Stop: 08/25/24 18:14 Ephedrine Sulfate (Ephedrine Sulfate 50 Mg/Ml Amp) 5 mg IV Q5M PRN PRN Reason: PACU Use Only-SBP<90 mmHg Stop: 07/30/24 19:12 Fentanyl Citrate (Fentanyl Citrate Pf 100 Mcg/2 Ml Vial) 50 mcg IV Q5M PRN PRN Reason: PACU Use Only-Pain Stop: 07/30/24 19:12 Last Admin: 07/30/24 13:58 Dose: 50 mcg Glucagon (Glucagon For Inj 1 Mg Vial) 1 mg SQ UD PRN; Protocol PRN Reason: Hypoglycemia Protocol Stop: 08/25/24 18:14 Glucose (Glucose 40% Gel 15 Gm Tube) 15 - 30 gm PO UD PRN; Protocol PRN Reason: Hypoglycemia Protocol Stop: 08/25/24 18:14 Glucose (Glucose 10 Tab/Tube) 4 - 8 tab PO UD PRN; Protocol PRN Reason: Hypoglycemia Protocol Stop: 08/25/24 18:14 Heparin Sodium (Porcine) (Heparin Sod 5,000 Unit/0.5 Ml Vial) 7,500 units SQ Q12 ABDIAS Stop: 08/25/24 22:34 Last Admin: 07/28/24 20:33 Dose: 7,500 units Hydromorphone HCl (Hydromorphone Inj 1 Mg/Ml Syringe) 0.5 mg IV Q3HWA PRN PRN Reason: Breakthrough Pain Stop: 08/09/24 22:34 Hydromorphone HCl (Hydromorphone Inj 2 Mg/Ml Syr/Vial) 0.5 mg IV Q5M PRN PRN Reason: PACU Use Only-Pain Stop: 07/30/24 19:12 Hydroxyzine HCl (Hydroxyzine Hcl 10 Mg Tab) 10 mg PO DAILY PRN PRN Reason: Anxiety Stop: 08/25/24 18:16 Last Admin: 07/29/24 00:16 Dose: 10 mg Ceftriaxone Sodium (Rocephin) 2,000 mg in 50 mls @ 100 mls/hr IV Q24H [facility] Stop: 08/06/24 17:59 Last Infusion: 07/29/24 18:35 Dose: Infused Metronidazole (Flagyl) 500 mg in 100 mls @ 100 mls/hr IV Q8H [facility]; Protocol Stop: 08/06/24 00:00 Last Infusion: 07/30/24 10:03 Dose: Infused Promethazine HCl 6.25 mg/ (Sodium Chloride) 50.25 mls @ 204 mls/hr IV ONCE PRN PRN Reason: PACU Use Only-Nausea/Vomiting Stop: 07/30/24 19:12 Insulin Aspart (Insulin Aspart Per Unit Charge) 0 units SC ACHS [facility] Stop: 08/25/24 20:59 Last Admin: 07/30/24 09:03 Dose: Not Given Lisinopril (Lisinopril 10 Mg Tab) 10 mg PO QAM [facility] Stop: 08/26/24 08:59 Last Admin: 07/30/24 08:54 Dose: 10 mg Miscellaneous (Carbohydrates For Hypoglycemia ) 15 - 30 gm PO UD PRN PRN Reason: Hypoglycemia Protocol Stop: 08/25/24 18:14 Miscellaneous (Remove Lidoderm Patch) 1 each N/A DAILY@2100 [facility] Stop: 08/27/24 20:59 Last Admin: 07/29/24 20:07 Dose: Not Given Miscellaneous (Remove Lidoderm Patch) 1 each N/A ONE ONE Stop: 07/30/24 14:01 Miscellaneous Information (Pharmacy Glycemic Mgmt Consult) 1 each N/A UD PRN PRN Reason: Consult Stop: 08/25/24 18:14 Ondansetron HCl (Ondansetron Inj 2 Mg/Ml 2 Ml Vial) 4 mg IV Q6H PRN PRN Reason: Nausea Stop: 08/25/24 22:34 Ondansetron HCl (Ondansetron Inj 2 Mg/Ml 2 Ml Vial) 4 mg IV ONCE PRN PRN Reason: PACU Use Only-Nausea/Vomiting Stop: 07/30/24 19:12 Oxycodone HCl (Oxycodone Hcl Ir 5 Mg Tab (Immediate Release)) 5 mg PO Q3HWA PRN PRN Reason: Severe Pain (Scale 7, 8, 9,10) Stop: 08/10/24 08:24 Last Admin: 07/27/24 16:05 Dose: 5 mg Polyethylene Glycol (Polyethylene (Miralax) 17 Gm Pack) 17 gm PO DAILY PRN PRN Reason: Constipation Stop: 08/25/24 22:34 (2) Diabetes type 2 Diabetes mellitus complication status: without complication Diabetes mellitus watcher [employer] goods insulin use: without watcher autom[employer] goods use Qualified Code(s): E11.9 - Type 2 diabetes mellitus without complications
--- NOTE | 2024-07-30 14:12 | Anesthesiology Progress Note ---
Date of Service July 30, 2024 Anesthesia Post Procedure Vital Signs Vital Signs: Temp Pulse Pulse Resp BP BP Pulse Ox 07/30/24 14:10 36.4 C L 68 12 156/89 H 97 07/30/24 14:00 62 12 150/86 H 95 07/30/24 13:50 65 16 187/92 H 96 07/30/24 13:40 65 18 175/94 H 97 07/30/24 13:30 36.2 C L 73 16 155/90 H 95 07/30/24 11:22 36.5 C 68 20 139/98 95 07/30/24 09:31 07/30/24 07:14 36.6 C 70 16 150/82 H 98 07/29/24 20:45 36.9 C 65 20 162/80 H 97 07/29/24 15:11 36.7 C 60 17 137/64 99 O2 Del Method O2 Flow Rate 07/30/24 14:10 Nasal Cannula 3 07/30/24 14:00 Nasal Cannula 3 07/30/24 13:50 Oxymask 4 07/30/24 13:40 Oxymask 6 07/30/24 13:30 Oxymask 10 07/30/24 11:22 Room Air 07/30/24 09:31 Room Air 07/30/24 07:14 Room Air 07/29/24 20:45 Room Air 07/29/24 15:11 Room Air Pain Intensity Abdomen: Pain Intensity: 6 Transfer of Care Handoff Completed per policy Notes Mental Status: alert / awake / arousable and participated in evaluation Patient Amnestic to Procedure: Yes Nausea / Vomiting: adequately controlled Pain: adequately controlled Airway Patency, RR, SpO2: stable & adequate BP & HR: stable & adequate Hydration State: stable & adequate Anesthetic Complications: no major complications apparent
[2024-07-30] MEDS ORDERED: MoRPHine SULFATE 4 MG/ML 1 ML CARP\\VIAL IV PRN (14:27)
[2024-07-30] MEDS ORDERED: oxyCODONE/ACETAMINOPHEN 5mg/325mg TAB PO PRN (14:27)
[2024-07-30] MEDS: HYDROmorphone INJ 1 MG/ML SYRINGE IV PRN (15:06)
[2024-07-30] MEDS: ACETAMINOPHEN 325 MG TAB PO PRN (17:15)
[2024-07-30] MEDS: oxyCODONE/ACETAMINOPHEN 5mg/325mg TAB PO PRN (19:44)
[2024-07-30] MEDS: MoRPHine SULFATE 2 MG/ML CARP IV PRN (23:32)
[2024-07-31 07:18] LABS: Basophils # (auto) 0.01 K/uL (0.00-0.20); Basophils % (auto) 0.1 %; Hematocrit (blood only) 29.8 % (37.0-47.0); Hemoglobin 9.8 g/dl (12.0-16.0); Immature Granulocytes # (auto) 0.14 K/uL (0.01-0.20); Immature Granulocytes % (auto) 1.2 %; Lymphocytes # (auto) 1.22 K/uL (1.20-3.40); Lymphocytes % (auto) 10.1 %; Mean Corpuscular Hemoglobin 29.8 pg (25.0-34.0); Mean Corpuscular Hgb Conc 32.9 g/dL (32.0-36.0); Mean Corpuscular Volume 90.6 fL (80.0-100.0); Mean Platelet Volume 8.7 fL (9.4-12.4); Monocytes # (auto) 0.97 K/uL (0.11-0.59); Neutrophils # (auto) 9.73 K/uL (1.40-6.50); Neutrophils % (auto) 80.6 %; Platelet Count 353 K/uL (130-400); RDW Coefficient of Variation 13.2 % (11.5-14.5); RDW Standard Deviation 43.9 fL (36.4-46.3); Red Blood Count 3.29 M/uL (4.20-5.40); White Blood Count 12.07 K/ul (4.8-10.8)
[2024-07-31 07:43] LABS: Bilirubin,Total 0.3 mg/dl (0.2-1.0); Calcium 8.1 mg/dl (8.6-10.3); Creatinine Clr Calc Pharmacy 47.4 ml/min; Globulin 2.9 gm/dl (2.5-4.0); Potassium 4.6 mmol/L (3.5-5.1); Total Protein 5.9 gm/dl (6.0-8.3)
--- NOTE | 2024-07-31 10:12 | Pharmacy Report ---
Pharmacy Glycemic Short Note 2 - Date of Service July 31, 2024 - Glycemic Short BSG Results (Last 24 hours): 07/30/24 07/30/24 07/30/24 11:29 13:36 16:27 Glucose POC Glucose 127 H 189 H 227 H 07/30/24 07/31/24 07/31/24 20:55 06:27 07:35 Glucose 193 H POC Glucose 245 H 197 H OUTPATIENT ANTIDIABETIC REGIMEN: * Metformin 500 mg qAM; A1c 7.1% ASSESSMENT: 07/31 * Patient's blood sugars above goal last night and this morning d/t IV Steroids received for lap antoni yesterday. * POD1, no further steroids ordered, will tighten CF/CR for breakfast only then resume pervious NovoLog parameters as steroids will be wearing off. 07/30 * Patient's blood sugars at goal, NPO today for lap antoni. No Steroids ordered at this time. * No changes needed in insulin regimen at this time. 07/27 * Patient admitted with cholecystitis with tentative plans for OR on 07/30. * Patient with decent control outpatient on low dose of metformin. Patient was initiated on weight stress 2 Novolog * Will continue with current regimen. Continue to hold basal for now- fasting 128 mg/dL this morning PLAN FOR INPATIENT GLYCEMIC CONTROL: * Hold outpatient oral diabetes medications * Basal insulin * hold * Bolus insulin * NovoLog per scale ACHS or Q6hrs while NPO * Goal Range: Low 110 mg/dL - High 160 mg/dL * Correction Factor: 30 mg/dL/unit * Nutritional / Prandial insulin per carb ratio of 1 unit per 9 grams CHO consumed
[2024-07-31] MEDS: HEPARIN SOD 5,000 UNIT/0.5 ML VIAL SQ SCH (10:21)
--- NOTE | 2024-07-31 12:25 | Surgery Progress Note ---
Date of Service July 31, 2024 Assessment & Plan (1) Acute calculous cholecystitis: Plan: POD#1 doing well advance diet and activity OK to restart heparin/plavix per medical team post op instructions in chart appt my clinic 2 weeks Admission and Anticipated Discharge Date Admission Date: July 26, 2024 Subjective pain controlled taking po Review of Systems Constitutional: no fever, no chills and no anorexia Respiratory: no cough and no dyspnea Cardiovascular: no chest pain Gastrointestinal: + abdominal pain; no nausea and no vomit ing Musculoskeletal: + neck pain; no back pain Neurologic: no localized weakness and no generalized weakness Psychiatric: no behavioral changes Physical Exam Constitutional: WD/WN, vitals as above Gastrointestinal (Abdomen): Inspection/Auscultation: abdomen normal to inspection, normal bowel sounds and + abdominal surgical incision; abdomen not distended Percussion/Palpation: + abdomen tender and abdomen soft; no guarding and abdomen not rigid Musculoskeletal: Head/Neck/Chest: normocephalic and head atraumatic Skin: no rashes, warm and dry Results & Data Vital Signs (Past 12 Hours) Vital Signs Temp Pulse Resp BP BP Pulse Ox O2 Del Method 07/31/24 11:51 36.5 C 78 15 103/67 92 Room Air 07/31/24 07:29 36.7 C 85 15 130/80 94 Room Air 07/31/24 04:34 94 Room Air 07/31/24 03:02 36.6 C 82 16 122/76 93 Nasal Cannula O2 Flow Rate 07/31/24 11:51 07/31/24 07:29 07/31/24 04:34 07/31/24 03:02 4
[2024-07-31] MEDS ORDERED: CLOPIDOGREL BISULFATE 75 MG TAB PO ONE (13:09)
--- NOTE | 2024-07-31 13:10 | Discharge Summary ---
Discharge Summary Date of Service July 31, 2024 Principal Dx & Hospital Course #1 = Principal Diagnosis (1) Acute calculous cholecystitis: (2) Diabetes type 2: (3) Abnormal urinalysis: (4) History of CVA (cerebrovascular accident): Plan Patient is a 54y/o F with PMHx significant for obesity, DM type II, HLD, HTN, history of CVA on Plavix and anxiety who was referred to the ED by Dr. Seo, [facility], after being seen in his office earlier today due to concern for acute cholecystitis given persistent RUQ abdominal pain since this past Tuesday. --Gallbladder US and CTAP consistent with acute cholecystitis with evidence of a gallbladder stone within the gallbladder neck #Acute calculous cholecystitis S/P Lap Ness on 07/30 Tolerated procedure well Ok to resume plavix per general surgery tolerating diet, will discharge with oral oxy IR for pain control Discharge to complete 4 more days of oral augmentin Low fat diabetic diet as tolerated #T2DM Chronic, stable A1C 7.1 07/2024 resume outpt meds #CKD-3 External chart review shows baseline cr 1.5 pt previously a pt of Dr. Suman CARTER, now recently established with Dr. Cali Had cr of 1.5 back in early 2023 Pt would benefit from outpt nephrology referral in setting of T2DM and HTN hx for close monitoring #Abnormal UA: urine growing Gardnerella, completed tx #Hx of CVA: no residual deficit, had speech issues that resolved, resume plavix #HTN: chronic, stable, continue lisinopril Discharge home today Patient seen in collaboration with Dr. Cain. Please see addendum. I spent a total of 40 minutes coordinating, documenting, and providing care for this patient excluding time spent in the performance of separately billed services or time spent by another provider/QHP. This included personally reviewing all current laboratories and imaging studies, medical reconciliation, outpatient chart review and discussion with specialists. Notes For Next Care Provider I Recommend pt be referred to a supervisor housecleaner as it looks like she has established CKD-3 with hx of T2DM. Would recommend routine referral. Medication Changes From Visit 1. Augmentin 875mg by mouth twice daily for additional 3 days. Next dose due 07/31/24 in p.m. Admission HPI Per Admitting Provider Sweta Scott is a 54y/o F with PMHx significant for obesity, DM type II, HLD, HTN, history of CVA on Plavix and anxiety who was referred to the ED by Dr. Altagracia dumas, [facility], after being seen in his office earlier today due to concern for acute cholecystitis given persistent RUQ abdominal pain. History obtained from the patient, family at bedside, discussion with ED provider and associated chart review. Ongoing RUQ abdominal pain since this past Tuesday. Had incessant N/V on Tuesday therefore she went to [facility] ED for evaluation that evening and was subsequently discharged home; patient recalls being told she had a negative workup at the time. According to her outpatient visit with Dr. Seo today, it appears her CTAP at [facility] ED did demonstrate pericholecystic fluid and a stone in the neck of the gallbladder. She was not discharged home with any ABX. Notes her N/V has resolved since Tuesday however the pain in her RUQ abdominal region has persisted. Also endorses some discomfort and pain in her L midabdominal region which started today. Reports passing gas but no BM in the past 2 days. No diarrhea. No recorded fevers. Ongoing poor appetite since Tuesday but has been able to keep food down. Endorses good hydration status. Feels RUQ abdominal pain is about a 1 or 2 out of 10 at rest but becomes severe with a rating of about 8-9 out of 10 when this area is palpated. Denies any chest pain or SOB. No urinary complaints either such as dysuria or hematuria. Past surgical history notable for bilateral tubal ligation. She is on Plavix given history of CVA; took all of her medications this morning including the Plavix. Endorses no physical deficits from her prior CVA but does report having some intermittent forgetfulness at times. Admission Exam Per Admitting Provider General: Obese, middle-aged F. Sitting up in bed. Pleasant. A+Ox3. Appears comfortable at rest. Family at bedside. HEENT: Normocephalic, atraumatic. Conjunctivae normal. External ear and nose normal, oropharynx normal. Respiratory: Normal respiratory effort, lungs clear to auscultation bilaterally, No accessory muscle use. Cardiovascular: Regular rate and rhythm, normal peripheral pulses. No BLE edema. Abdomen/GI: Normal bowel sounds. Not distended. Extremely TTP in RUQ with active guarding and + Whitfield's sign. Extremities/MSK: No cyanosis or clubbing, extremities motor strength intact, moves all extremities. Neurologic: No overt focal deficits, CN's II-XI not formally tested but appear grossly intact bilaterally. Discharge Exam Gen: WD/WN, NAD, A&O x3 HEENT: Normocephalic, atraumatic, conjunctivae moist, sclerae anicteric, mucous membranes moist. Lung: Clear to Auscultation bilaterally, no wheezes/rales/rhonchi Heart: Regular rate, regular rhythm, no murmurs, rubs, or gallops Abdomen: soft, generalized tenderness but no rebound/guarding, +lap incisions x 4 healing well Extremities: No edema Skin: Warm, no rash, negative turgor. Updated Medication List Medication Instructions Recorded Confirmed Type atorvastatin 80 mg tablet 40 mg PO QAM 07/26/24 07/26/24 History citalopram 40 mg tablet 40 mg PO QAM 07/26/24 07/26/24 History clopidogrel 75 mg tablet 75 mg PO QAM 07/26/24 07/26/24 History hydroxyzine HCl 10 mg tablet 10 mg PO DAILY PRN Anxiety 07/26/24 07/26/24 History lisinopril 10 mg tablet 10 mg PO QAM 07/26/24 07/26/24 History metformin 500 mg tablet 500 mg PO QAM 07/26/24 07/26/24 History amoxicillin 875 mg-potassium 1 tab PO BID #7 tabs 07/31/24 Rx clavulanate 125 mg tablet docusate sodium 100 mg capsule 100 mg PO DAILY 2 weeks #14 caps 07/31/24 Rx (Colace) oxycodone 5 mg tablet 5 mg PO Q6H PRN pain #12 tabs 07/31/24 Rx Hospital Stay Data Procedures Performed Operation Date: 07/30/24 12:05 Actual Procedures p Laparoscopic Cholecystectomy, No Cholangiogram(Not Applicable) - Rafi Delgado MD Diagnostic Imagining Performed Gallbladder Ultrasound 07/26/24 12:56 US gallbladder CLINICAL HISTORY: Abdominal pain. COMPARISON STUDY: No previous studies for comparison. FINDINGS: A 3 cm gallstone within the gallbladder neck is noted. The gallbladder is mildly distended. Sonographic Whitfield sign was reported by the technologist. There is mild gallbladder wall thickening and trace pericholecystic fluid. There is no biliary ductal dilatation. No hepatic lesions are identified. Liver morphology is normal. Pancreatic body is normal. Head and tail are obscured. A 1.1 cm hypoechoic nodule adjacent to the pancreatic head favors a benign lymph node. There is no right hydronephrosis. IMPRESSION: 1. Cholelithiasis with positive sonographic Whitfield sign, mild gallbladder wall thickening and trace pericholecystic fluid. The findings favor acute cholecystitis. A nuclear medicine hepatobiliary scan could be obtained as indicated. 2. No biliary ductal dilatation. ACT 112: Negative or not required by law. Electronically signed by: Jeffrey Robles M.D. 07/26/2024 3:00 PM Abdomen/Pelvis CT 07/26/24 18:58 EXAM: CT Abdomen and Pelvis Without Intravenous Contrast INDICATION: Left lower quadrant pain. Query hernia. TECHNIQUE: Axial computed tomography images of the abdomen and pelvis without intravenous contrast. Sagittal and coronal reformatted images were created and reviewed. This CT exam was performed using one or more of the following dose reduction techniques: automated exposure control, adjustment of the mA and/or kV according to patient size, and/or use of iterative reconstruction technique. COMPARISON: No relevant prior studies available. FINDINGS: Limitations: None. Lung bases: No abnormality noted. Pleural space: No visualized pleural effusion or pneumothorax. Heart: No abnormality noted. Mediastinum: No abnormality noted. ABDOMEN: Liver: Lack of intravenous contrast limits detection of some masses. No abnormality noted. Gallbladder and bile ducts: The gallbladder is distended and appears mildly inflamed. There is a 1.9 cm lamellated stone in the neck. No ductal dilatation or calcification. Pancreas: No pancreatic mass, calcification, inflammation or ductal dilation noted. Spleen: No significant abnormality noted. Adrenals: No significant abnormality noted. Kidneys and ureters: Mild bilateral renal cortical scarring noted. No stones or hydronephrosis. Stomach and bowel: Typical amounts of formed stool noted in the colon. No obstruction or inflammation. PELVIS: Appendix: No findings to suggest acute appendicitis. Bladder: Appears normal for the degree of filling. No stones or inflammation. No large mass. Masses may not be detected in the absence of opacification. Reproductive: No abnormalities noted. ABDOMEN and PELVIS: Intraperitoneal space: No free air. No significant fluid collection. Bones/joints: No acute changes. Soft tissues: No significant abnormality noted. Vasculature: No abdominal aortic aneurysm. Lymph nodes: No pathologically enlarged lymph nodes. IMPRESSION: 1.9 cm stone appears to be lodged in the neck of the distended and inflamed gallbladder consistentwith acute cholecystitis. Confirmation with sonography or HIDA scan recommended. ACT 112: N/A Electronically signed by Teena Tripp 07-26-2024 7:34 PM Pending Results Patient Have Any Pending Studies at Discharge: Yes (pending gall bladder pathology) Discharge Instructions Given to Patient (Per Discharging Provider) Post-Surgical ~Discharge Instructions New Medications: 1. Augmentin 875mg by mouth twice daily for additional 3 days. Next dose due 07/31/24 in p.m. Activity Recommendations: - Lifting limitation: (<20 pounds for 3-4 weeks), - Exercise/sex/sports limit: (nonstrenuous for 2 weeks), - Driving or machine use limit: (none after 3 days post-op as long as pain free and no longer taking narcotic pain medication), - Shower/bathe limit: (may shower tomorrow, no submerging incisions underwater for 2 weeks, Dermabond will peel off in 1-2 weeks) - Call the surgeon's office with any questions or concerns - ; ex. temperature higher than 101.5 degrees F, excessive bleeding or pain Diet: - Resume previous diet, regular as tolerated. Medications: - Resume previous medications unless instructed otherwise by your surgeon. - Wound recommend scheduled tylenol, 500mg every 6 hours for pain - Percocet 1 every 6 hours, as needed for moderate to severe pain. Narcotics may cause nausea on an empty stomach, please eat before taking pain pills - Recommend daily stool softener (Colace) while taking narcotic pain medication to prevent constipation or straining. Drink plenty of water daily. -Please avoid anti inflammatory medications like ibuprofen, advil, aleve, naproxen due to your history of kidney disease Follow-up: - If not already scheduled, please call the office to schedule a two week follow-up appointment. Office number Total Time Total Time Spent Total Time Spent (In Minutes): 45 minutes Supervising Physician Co-Signing Physician Notes Patient seen walking the halls post op, ambulating well. Post operative reactive leukocytosis, creatinine at baseline. Medically stable for follow up outpatient with PCP, surgery. Sent home with post operative abx, pain medication, and bowel regiment. I have seen and discussed the case with the collaborating advanced practitioner. I agree with the above H&P. I have reviewed and confirmed the patients medical history, the findings on physical examination, and the patients diagnosis and treatment plan with Selena Lehman PA-C and agree with the information documented. I spent a total of 20 minutes coordinating, documenting, and providing care for this patient excluding time spent in the performance of separately billed services. All of the aforementioned completed outside of collaborating with the assigned advanced practitioner for a full treatment plan. I have reviewed the advanced practitioner's documentation, and I agree with, and take responsibility for the plan of care
== END 2024-07-31 15:19 | disposition home or self-care (01) | DRG 418 ==
LOC: ED 12:32 → 3N 18:14 → SUATTDRO 18:14 → 3N 21:36